=== PATIENT | male | born 1965 | race Caucasian/White ===

== ENCOUNTER → 2016-10-27 | Outpatient (CLI) | payer BC ==
--- NOTE | 2016-10-27 14:17 | CT ---
EXAMINATION TYPE: CT abdomen wo/w con DATE OF EXAM: 10/27/2016 2:04 PM COMPARISON: NONE HISTORY: 51-year-old male RUQ pain for 3 days. TECHNIQUE: Contiguous axial scanning of the abdomen following administration of 100 ml Omnipaque 300 IV contrast. Delayed images through the kidneys and coronal/sagittal reconstructions performed. CT DLP: 2180 mGycm Automated exposure control for dose reduction was used. FINDINGS: The heart is normal size without pericardial effusion. Strandy atelectasis at the posterior lung base s without pleural effusion. Diminished attenuation of the hepatic parenchyma suggesting fatty infiltration. No focal liver lesion or biliary ductal dilatation. Portal venous system is patent. Gallbladder, adrenal glands, kidneys, spleen, and pancreas appear within normal limits. No dilated small bowel, free fluid, or free air. Scattered nonenlarged mesenteric lymph nodes, some o f which are borderline enlarged measuring up to 6 mm. Likely reactive/post inflammatory. No retroperi toneal lymphadenopathy. Small fatty umbilical hernia. Normal appendix. Mild overall stool burden without pericolonic inflammatory change seen within the upper abdomen. The pelvis is not imaged. Bones: No osseous destructive process. IMPRESSION: 1. ATTENUATION CHARACTERISTICS SUGGEST FATTY INFILTRATION OF THE LIVER. CORRELATE WITH LFT's, LIPID P ROFILE, AND PATIENT RISK FACTORS. 2. SMALL FATTY UMBILICAL HERNIA.
== END | disposition home or self-care (01) ==
LOC: RADCTMAIN 13:08
PROVIDERS: ATTEND Family Medicine
DX: K42.9 Umbilical hernia without obstruction or gangrene (principal)
CPT/HCPCS: 74170; Q9967

== ENCOUNTER → 2017-10-31 | Outpatient (CLI) | payer BC | END | disposition home or self-care (01) | LOC: RADMRIMAIN 06:36 | PROVIDERS: ATTEND Orthopaedic Surgery | DX: Z53.9 Procedure and treatment not carried out, unspecified reason (principal) ==

== ENCOUNTER 2017-12-06 05:50 | Day surgery (SDC) | payer BC ==
[2017-11-30 12:45] VITALS: BMI 39.5
--- NOTE | 2017-12-05 13:56 | HP ---
HISTORY AND PHYSICAL DATE OF SERVICE: 12/06/2017 Fabricio Ortiz is a 52-year-old patient seen with progressive right shoulder pain. Treatment options were discussed. He elected to proceed with arthroscopy. Consent was obtained. PAST MEDICAL HISTORY: Hypertension. PAST SURGICAL HISTORY: Noncontributory. DAILY MEDICATIONS: Bystolic. ALLERGIES: None known, SOCIAL HISTORY: Patient denies tobacco use. PHYSICAL EVALUATION RIGHT SHOULDER: Flexion is 150 degrees, abduction is 130 degrees, external rotation is 25 degrees with pain and weakness. There is tenderness along the anterolateral acromion and rotator cuff insertion site as well as the acromioclavicular joint. Impingement sign is positive at 90 degrees. Drop-arm sign is positive. Distal neurovascular exam is intact. RADIOGRAPHS: Radiographs of the right shoulder revealed a type 2 anterior acromion, evidence for acromioclavicular joint osteoarthritis. An MRI of the right shoulder revealed a partial rotator cuff tear, severe acromioclavicular joint osteoarthritis, biceps tendinitis and a labral tear. IMPRESSION: Right shoulder impingement with rotator cuff tear, acromioclavicular joint osteoarthritis and labral tear. PLAN: Right shoulder arthroscopy with subacromial decompression, probable arthroscopic rotator cuff repair, probable Trey procedure, probable biceps tenotomy and debridement. MMODL / IJN: [id number] /
[~2017-12-06 05:50] MED LIST: ceFAZolin IN SWFI 2 GM/20 ML SYRINGE IVP ONE
[2017-12-06] MEDS ORDERED: MORPHINE SULFATE 4 MG/0.8 ML SYRINGE (INJ) IV PRN (05:58)
[2017-12-06] MEDS ORDERED: DEXAMETHASONE SOD PHOSPHATE 10 MG/ML 1 ML VIAL IV ONE (05:58)
[2017-12-06] MEDS ORDERED: MIDAZOLAM 2 MG/2 ML VIAL IV PRN (05:58)
[2017-12-06] MEDS ORDERED: LACTATED RINGERS 1,000 ML IV SCH (05:58)
[2017-12-06] MEDS ORDERED: ONDANSETRON ODT 4 MG TAB PO ONE (05:58)
[2017-12-06] MEDS ORDERED: LIDOCAINE 1% 20 ML VIAL (10MG/ML) FOR IV START INTRADERMA ONE (06:44)
[2017-12-06] MEDS ORDERED: ONDANSETRON 4 MG/2 ML VIAL IVP ONE (06:46)
[2017-12-06] MEDS ORDERED: fentaNYL (PF) 50 MCG/ML 2 ML AMP ONE ×2 (06:54→07:29)
[2017-12-06] MEDS ORDERED: fentaNYL (PF) 50 MCG/ML 2 ML AMP IV ONE (06:58)
[2017-12-06] MEDS ORDERED: ePHEDrine SULFATE/0.9% NACL/PF 50 MG/5 ML SYRINGE IV ONE (07:29)
[2017-12-06] MEDS ORDERED: ceFAZolin IN SWFI 2 GM/20 ML SYRINGE IVP ONE (07:29)
[2017-12-06] MEDS ORDERED: LIDOCAINE 1% INJ 10MG/ML (20 ML MDV) ONE (07:29)
[2017-12-06] MEDS ORDERED: PROPOFOL 10 MG/ML 20 ML VIAL IV ONE (07:29)
[2017-12-06] MEDS ORDERED: SUCCINYLCHOLINE CHLORIDE VIAL 200 MG/10 ML VIAL IV ONE (07:29)
[2017-12-06] MEDS ORDERED: MIDAZOLAM 2 MG/2 ML VIAL ONE (07:29)
[2017-12-06] MEDS ORDERED: LACTATED RINGERS 1,000 ML IV ONE (08:30)
--- NOTE | 2017-12-06 09:32 | P.OP ---
Date of Procedure: 12/06/17 Preoperative Diagnosis: Right shoulder impingement Postoperative Diagnosis: 1. Right shoulder rotator cuff tear 2. Right shoulder impingement 3. Right shoulder acromioclavicular joint osteoarthritis 4. Right shoulder partial long head biceps tendon tear 5. Right shoulder labral tear 6. Right shoulder glenoid chondromalacia Procedure(s) Performed: 1. Right shoulder arthroscopic rotator cuff repair 2. Right shoulder arthroscopic subacromial decompression 3. Right shoulder arthroscopic Trey procedure 4. Right shoulder arthroscopic biceps tenotomy 5. Right shoulder arthroscopic debridement labral tear 6. Right shoulder arthroscopic chondroplasty glenoid Implants: 1-4.5 peek anchor Anesthesia: GETA, regional (Interscalene block) Surgeon: Rob Toribio Secretary Office Clerk #1: Apolinar Hodgson Estimated Blood Loss (ml): 20 Pathology: none sent Condition: stable Disposition: PACU Indications for Procedure: 52-year-old patient seen with progressive right shoulder pain. After treatment options were discussed, patient elected to proceed with arthroscopy. Consent regarding the procedure was obtained. Operative Findings: see description of procedure Description of Procedure: Patient underwent a shoulder block by department of anesthesia. The patient was then taken to the operative suite. The patient underwent a general anesthetic by the department of anesthesia. The patient was placed into a lateral position and secured. There was appropriate padding of the bony prominence. Right shoulder was then prepped and draped in normal sterile orthopedic fashion. We placed the extremity in 10 pounds of longitudinal traction. A posterior incision was now made for a posterior working portal site. The trocar and cannula were inserted into the glenohumeral joint. Arthroscopy was initiated. Spinal needle was now inserted anteriorly, to ascertain the anterior working portal site. An incision was now made in that area, a trocar was inserted followed by a probe. There was superficial tearing of the superior labrum. There were grade 2/3 chondral moist changes of the anterior portion of glenoid with some small osteochondral tears. There was partial tearing hyperemia long head biceps tendon. The humeral head was unremarkable. I debrided the labral tears down to stable tissue. I performed an arthroscopic biceps tenotomy. I performed a chondroplasty of the glenoid down to stable tissue. The residual labrum was stable. The residual osteochondral surface of the glenoid was stable. Instruments were now removed from glenohumeral joint. Utilizing the posterior working portal site, the trocar and cannula were inserted into the subacromial space. Arthroscopy initiated. I made an incision 2 fingerbreadths lateral to the acromion. I introduced my trocar followed by my ArthroCare ablator. I now began ablating thick subacromial bursal tissue, which exposed the undersurface of the anterior acromion. This was diminished subacromial space. There was a very prominent anterior acromion. A motorized bur was introduced and a subacromial decompression was performed. I also excised some osteophytes off the inferior aspect of the distal clavicle. The AC joint was visualized and noted to be fairly arthritic. Our motorized bur was introduced in the anterior portal site and a Trey procedure was performed without difficulty, decompressing the AC joint nicely. I turned my attention to the rotator cuff. There was an area of superficial tearing along the distal space. Once I debrided that I did note a full-thickness perforation. I debrided those margins down to stable tissue. I abraded the footprint with a motorized bur. I passed 2 everted mattress sutures through good bites of rotator cuff tendon. I repaired the tendon right back to the footprint utilizing one 4.5 peek anchor. The residual suture limbs were clipped. The repair was probed and found to be stable. I injected 1 mL of UCT intra- articular. Instruments now removed from the portal sites. All portal sites were approximated with nylon suture. Sterile dressings were applied followed by a shoulder immobilizer. Wilmer MASTERS assisted with the procedure. The patient was awakened, transferred to a bed, and taken to recovery in stable condition.
[2017-12-06 09:33] VITALS: TEMP 96.4
--- NOTE | 2017-12-06 09:48 | P.ONQ ---
Anesthesiology Proc Note - PNB - Peripheral Nerve Block Performed Right Interscalene Single Time Out Performed: Yes Procedure Start Time: 06:58 Indication: Acute Post-Operative Pain, Analgesia Specifically requested for management of pain by DrDiane: Rob Toribio Sedation Type: Sedate with meaningful contact maintained Preparation: Sterile Prep Position: Supine Catheter: None Needle Types: Other (see comment) (Pajunk) Needle Size: 50mm (2") Needle Gauge: 21 Technique: Ultrasound Injectate: 0.5% Ropivacaine (see comment for volume) (30cc) Blood Aspirated: No Pain Paresthesia on Injection Noted: No Resistance on Injection: Normal Events: Uneventful and Well Tolerated
[2017-12-06 09:52] VITALS: RESP 18
[2017-12-06] MEDS ORDERED: KETOROLAC 30 MG/ML 1 ML VIAL IVP ONE (09:56)
[2017-12-06 11:32] VITALS: BP 134/83; PULSE 81
== END 2017-12-06 12:17 | disposition home or self-care (01) ==
LOC: OR 05:50
PROVIDERS: ATTEND Orthopaedic Surgery
DX: M75.121 Complete rotator cuff tear or rupture of right shoulder, not specified as traumatic (principal); S46.111A Strain of muscle, fascia and tendon of long head of biceps, right arm, initial encounter; S43.491A Other sprain of right shoulder joint, initial encounter; M19.011 Primary osteoarthritis, right shoulder; M94.211 Chondromalacia, right shoulder; Z79.899 Other long term (current) drug therapy; I10 Essential (primary) hypertension
CPT/HCPCS: 29827; 29824; 29826; 29822; 64415; C1713; C1765; J2250; J0330; J1100; J2405; J2001; J3010; J1885; J2704; J0690

== ENCOUNTER → 2019-08-01 | Outpatient (CLI) | payer BC ==
[2019-08-01 14:57] LABS: HGB 16.3 gm/dL (13.0-17.5); MCH 29.8 pg (25.0-35.0); MCHC 32.6 g/dL (31.0-37.0); MCV 91.5 fL (80.0-100.0); Mean Platelet Volume 7.3; Platelet Count 312 k/uL (150-450); RBC 5.47 m/uL (4.30-5.90); WBC 7.8 k/uL (3.8-10.6)
== END | disposition home or self-care (01) ==
LOC: LABPAT 13:37
PROVIDERS: ATTEND Anesthesiology
DX: Z01.812 Encounter for preprocedural laboratory examination (principal); Z01.818 Encounter for other preprocedural examination
CPT/HCPCS: 36415; 84132; 85027; 93005

== ENCOUNTER → 2019-08-02 | Day surgery (SDC) | payer BC ==
[2019-07-30 13:48] VITALS: BMI 38.0
[~2019-08-02] MED LIST changes: +ACETAMINOPHEN TAB 500 MG TAB PO STA; +BUPIVACAIN-EPI 0.25%-1:200,000 30 ML VIAL SQ ONE; +DEXAMETHASONE SOD PHOSPHATE 10 MG/ML 1 ML VIAL IV ONE; +DEXAMETHASONE SOD PHOSPHATE 4 MG/ML 1 ML VIAL ONE; +GABAPENTIN 300 MG CAP PO STA; +GLYCOPYRROLATE 0.2 MG/ML 2 ML VIAL ONE; +HEPARIN SODIUM,PORCINE 5,000 UNIT/ML 1 ML VIAL SQ ONE; +LACTATED RINGERS 1,000 ML IV ONE; +LIDOCAINE 1% INJ 10MG/ML (20 ML MDV) ONE; +MIDAZOLAM 2 MG/2 ML VIAL IV PRN; +NEOSTIGMINE 1 MG/ML 10 ML VIAL ONE; +ONDANSETRON 4 MG/2 ML VIAL IVP ONE; +PROPOFOL 10 MG/ML 20 ML VIAL IV ONE; +ROCURONIUM BROMIDE 10 MG/ML 10 ML VIAL IV ONE; +ROPIVACAINE 5 MG/ML 30 ML VIAL ONE; +SCOPOLAMINE 1.5MG/72HR PATCH TRANSDERM ONE; +SUCCINYLCHOLINE CHLORIDE 100 MG/5 ML SYR IV ONE; +TAMSULOSIN 0.4 MG CAP.ER.24H PO STA; +ceFAZolin 3 GM in SODIUM CHLORIDE 0.9% 100 ML IVPB ONE; -ceFAZolin IN SWFI 2 GM/20 ML SYRINGE IVP ONE; +ePHEDrine SULFATE/0.9% NACL/PF 50 MG/5 ML SYRINGE IV ONE; +fentaNYL (PF) 50 MCG/ML 2 ML AMP IVP ONE; +fentaNYL (PF) 50 MCG/ML 2 ML AMP ONE
[2019-08-02] MEDS: LACTATED RINGERS 1,000 ML IV SCH ×2 (06:22→07:35)
--- NOTE | 2019-08-02 06:52 | P.GSHP ---
History of Present Illness H&P Date: 08/02/19 CHIEF COMPLAINT: History of umbilical hernia. HISTORY OF PRESENT ILLNESS: Fabricio Ortiz is a 53-year-old male who reports that in the last over 6 months, he has had swelling and pain of the umbilicus. 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 He denies any changes in bowel habits or blood in stools. In fact, he had a recent surgery of barely a year ago, where his EKG has been unremarkable for right shoulder arthroscopy procedure. As a result of his abdominal pain, he presents for further assessment. PAST MEDICAL HISTORY: Please see list. PAST SURGICAL HISTORY: Please see list. MEDICATIONS: Please see list. ALLERGIES: Please see list. SOCIAL HISTORY: No illicit drug use FAMILY HISTORY: No reports of Crohn disease or ulcerative colitis. REVIEW OF ORGAN SYSTEMS: Additionally reports: Cardiovascular: No reports of chest pain or heart attacks. Respiratory: No reports of dyspnea on exertion. Musculoskeletal: History of right shoulder surgery. CONSTITUTIONAL: No fevers or chills. No recent weight loss. EYES: Denies any trouble with vision. He wears glasses. HEENT: No difficulties with hearing. No nosebleeds. No difficulty swallowing. GASTROINTESTINAL: Denies fatty food intolerance. Denies change in bowel habits and gas bloat. GENITOURINARY: Denies any blood in urine or increased urinary frequency. NEUROLOGICAL: Denies any numbness or tingling along the distal extremities. No seizure disorders or headaches. SKIN: No current skin cancer. No rash. PSYCHIATRIC: Denies current depression or suicidal thoughts. ENDOCRINE: Denies current thyroid disorders. Denies any blood sugar glucose intolerance. Has low testosterone. HEME/LYMPHATIC: Denies any lumps and bumps around the neck. No recent deep venous thrombosis. ALLERGY/IMMUNOLOGY: No immunoglobulin therapy. No immune deficiencies. BREAST: Denies current breast lumps, pain or nipple discharge. PHYSICAL EXAM: Patient is a 53-year-old male. CONSTITUTIONAL: Well developed and in no acute distress. Vitals reviewed. EYES: Conjuctivae without sclera icterus. Pupils are equally round and reactive to light. Extraocular movements grossly intact. HEAD, EARS, NOSE, THROAT: Moist buccal mucosa. Head is atraumatic, normocephalic. Hears conversational speech. No nasal drainage. NECK: Supple. No JV distention. No thyroidomegaly. RESPIRATORY: Non-labored respirations and equal bilateral excursions. No gross wheezes. CARDIOVASCULAR: Regular rate and rhythm. Extremities without moderate edema. Palpable 2+ radial pulses. LYMPH: No neck lymphadenopathy. No axillary lymphadenopathy. MUSCULOSKELETAL: Nail and fingers with good capillary refill. SKIN: Warm and well perfused with good skin turgor. NEUROLOGIC: Cranial nerves I through XII grossly intact. Sensation upper and extremities intact. No focal or lateralizing signs. PSYCH: Appropriate affect. Alert and oriented to person, place and time. Di splays appropriate insight. Abdomen: 3 cm incarcerated umbilical hernia. STUDIES: EKG from November of 2017 demonstrated normal sinus rhythm. ASSESSMENT: 1. History of initial incarcerated umbilical hernia. PLAN: 1. Benefits and risks of robotic ventral hernia repair were described, including mesh placement. 2. Time off for recovery, including lifting restrictions of 4 weeks were also reviewed. 3. The patient recently had a EKG that was personally reviewed by me, which was within normal limits. 4. The patient is at elevated risk with history of hypertensive heart disease. Past Medical History Past Medical History: Hypertension History of Any Multi-Drug Resistant Organisms: None Reported Past Surgical History: Orthopedic Surgery Additional Past Surgical History / Comment(s): rt shoulder surgery Past Anesthesia/Blood Transfusion Reactions: No Reported Reaction Smoking Status: Never smoker - Past Family History Father Family Medical History: Cancer Mother Family Medical History: Cancer Sister(s) Family Medical History: Cancer Medications and Allergies Home Medications Medication Instructions Recorded Confirmed Type EPINEPHrine (Auto Inject) [Epipen] 0.3 mg IM ONCE PRN 11/30/17 08/02/19 History Hydrochlorothiazide [Hydrodiuril] 25 mg PO QAM 11/30/17 08/02/19 History Losartan Potassium 100 mg PO QAM 11/30/17 08/02/19 History Nebivolol [Bystolic] 5 mg PO QAM 11/30/17 08/02/19 History Allergies Allergy/AdvReac Type Severity Reaction Status Date / Time bee venom protein (honey bee) Allergy Anaphylaxis Verified 08/02/19 06:13 Surgical - Exam Vital Signs Temp Pulse Resp BP Pulse Ox 96.5 F L 84 18 130/60 97 08/02/19 06:19 08/02/19 06:19 08/02/19 06:19 08/02/19 06:19 08/02/19 06:19
--- NOTE | 2019-08-02 07:57 | P.ANPRN ---
Procedure Note - Anesthesia - Nerve Block Performed Bilateral Rectus Abdominis Single Time Out Performed: Yes Date of Procedure: 08/02/19 Procedure Start Time: :18 Procedure Stop Time: : Location of Patient: PreOp Indication: Acute Post-Operative Pain, Dx/Pain Location, Requested by Surgeon Sedation Type: Sedate with meaningful contact maintained Position: Supine Catheter: None Needle Types: Pajunk Needle Gauge: 21 Ultrasound used to visualize needle placement: Yes Ultrasound used to observe medication spread: Yes Injectate: 0.5% Ropivacaine (see comment for volume) (15ml each side) Blood Aspirated: No Pain Paresthesia on Injection Noted: No Resistance on Injection: Normal Image Stored and Saved: Yes Events: Uneventful and Well Tolerated
--- NOTE | 2019-08-02 09:08 | P.OP ---
Date of Procedure: 08/02/19 Description of Procedure: SURGEON: KAELA HAMILTON MD 1. RAULITO GOODMAN PREOPERATIVE DIAGNOSES: 1. Initial umbilical hernia with incarceration 2. Morbid obesity due to excess calories, BMI 41.6 3. Hypertensive heart disease. POSTOPERATIVE DIAGNOSES: 1. Initial umbilical hernia with incarceration 2. Morbid obesity due to excess calories, BMI 41.6 3. Hypertensive heart disease. OPERATION: Robotic-assisted da Willa Xi laparoscopic repair of initial incarcerated umbilical hernia 3 cm with mesh, ventralight ST mesh 11.4 cm Anesthesia: GETA, regional, local Estimated Blood Loss (ml): 10 Pathology: Incarcerated umbilical hernia COMPLICATIONS: None. Operative Findings: 1. Umbilical hernia defect, 3cm 2. Fascia repaired using #1 V-lock suture 3. Mesh placement placed INDICATIONS: The patient is a 53-year-old male who presents with incarcerated ventral hernia. Surgical intervention with laparoscopic versus robotic and open techniques were reviewed. Placement of mesh was also reviewed. Benefits and risks were thoroughly described. Informed consent was obtained. DESCRIPTION OF PROCEDURE: The patient was brought into the operating room and laid in supine position. After general induction, the abdomen had been prepped and draped in standard sterile fashion. Ioban draping was also placed. Prior to incision, a timeout protocol was confirmed with surgical team regarding the patient's name including procedures to be performed. The robot was primed prior to the procedure. A field block using local anesthetic was placed along hernia site including the proposed port sites. Initial incision was made with an #11 blade along the left upper quadrant. A 0 degree 5 mm laparoscopic trocar entry was performed and insufflated. Three 8 mm ports were placed along the right lateral abdominal wall under direct localization. The 5-mm port was exchanged for an 12 mm port. Placements of the ports were 15 cm from the target anatomy and 10 cm apart. The [employer] Xi robot was previously primed, prepped and draped then docked along the right side of the patient. I then sat at the robot [email or web address] Xi console where working arms of the robot including Bovie cautery connected to robotic scissors, needle stunt driver, and graspers placed by the sales operations assistant. Incarcerated umbilical hernia defect 3-cm was found with pre-peritoneal fat. The incarcerated contents were reduced as the peritoneal fat was cleaned from the abdominal wall. Next, hemostasis was checked with cautery. The hernia defect was oversewn using #1 nonabsorbable V-lock suture with fascial imbrication x 3. Next, ventralight ST mesh 11.4 cm was placed with the rough side towards the abdominal wall as to cover the umbilical defect. 2-0 VLOC 9 inch permanent sutures were used to fixate the mesh. A final endoscopic imaging was obtained. All instruments and pneumoperitoneum were evacuated from the abdominal cavity. The da Willa Xi robot was undocked from the patient. I re-scrubbed into the case for closure of incisions. The fascia of the 12-mm port was probed and less than 8-mm in size. The incisions were reapproximated using 4-0 Monocryl in an interrupted subcuticular fashion. Liquid glue was applied to the skin after cleansing the skin with normal saline and dilute hydrogen peroxide. An abdominal binder was placed. An umbilical dressing was placed prior. At the end of the procedure, needle, sponge, and instrument count had been verified correct by surgical physician assistant. The patient was taken to the postanesthesia care unit in stable condition. Plan - Discharge Summary New Discharge Prescriptions: New Tamsulosin [Flomax] 0.4 mg PO DAILY #3 cap.er.24h Ibuprofen [Motrin] 600 mg PO Q8HR PRN #30 tab PRN Reason: Pain Acetaminophen Tab [Tylenol Tab] 500 mg PO Q6H PRN #30 tablet PRN Reason: Pain No Action Hydrochlorothiazide [Hydrodiuril] 25 mg PO QAM EPINEPHrine (Auto Inject) [Epipen] 0.3 mg IM ONCE PRN PRN Reason: Anaphylaxis Nebivolol [Bystolic] 5 mg PO QAM Losartan Potassium 100 mg PO QAM Discharge Medication List EPINEPHrine (Auto Inject) [Epipen] 0.3 mg IM ONCE PRN 11/30/17 [History] Hydrochlorothiazide [Hydrodiuril] 25 mg PO QAM 11/30/17 [History] Losartan Potassium 100 mg PO QAM 11/30/17 [History] Nebivolol [Bystolic] 5 mg PO QAM 11/30/17 [History] Acetaminophen Tab [Tylenol Tab] 500 mg PO Q6H PRN #30 tablet 08/02/19 [Rx] Ibuprofen [Motrin] 600 mg PO Q8HR PRN #30 tab 08/02/19 [Rx] Tamsulosin [Flomax] 0.4 mg PO DAILY #3 cap.er.24h 08/02/19 [Rx] Follow up Appointment(s)/Referral(s): Kaela Hamilton MD [STAFF PHYSICIAN] - 08/15/19 Patient Instructions/Handouts: Laparoscopic Herniorrhaphy (DC), Umbilical Hernia Repair (DC), Abdominal Binder (DC) Activity/Diet/Wound Care/Special Instructions: No lifting for 4 pounds in 4 weeks, until September 02. No bathtub soaks for 2 weeks until August 16. Wear abdominal binder daily for comfort except for showering. DO NOT REMOVE DRESSING. Diet as tolerated. Use Tylenol and ibuprofen scheduled for the next 24-48 hours for best pain relief. Use ice along incisions for the today to prevent swelling. Discharge Disposition: HOME SELF-CARE
[2019-08-02 09:24] VITALS: TEMP 96.9
[2019-08-02] MEDS: HYDROmorphone 0.5 MG/0.5 ML SYRINGE IVP PRN ×2 (09:30→09:35)
[2019-08-02 10:12] VITALS: BP 148/81; PULSE 63; RESP 17
== END | disposition home or self-care (01) ==
LOC: OR 05:57
PROVIDERS: ATTEND Surgery Plastic and Reconstructive Surgery
DX: K42.0 Umbilical hernia with obstruction, without gangrene (principal); E66.01 Morbid (severe) obesity due to excess calories; Z68.41 Body mass index [BMI] 40.0-44.9, adult; I11.9 Hypertensive heart disease without heart failure; Z80.9 Family history of malignant neoplasm, unspecified; Z91.030 Bee allergy status; E78.5 Hyperlipidemia, unspecified; G47.33 Obstructive sleep apnea (adult) (pediatric); Z99.89 Dependence on other enabling machines and devices; Z79.899 Other long term (current) drug therapy
CPT/HCPCS: 49653; S2900; 64488; 88302

== ENCOUNTER → 2020-03-03 | Outpatient (CLI) | payer BC ==
[2020-03-03 11:39] LABS: HCT 43.5 % (39.0-53.0); HGB 14.7 gm/dL (13.0-17.5); MCH 30.6 pg (25.0-35.0); MCHC 33.9 g/dL (31.0-37.0); MCV 90.3 fL (80.0-100.0); Mean Platelet Volume 7.4; Platelet Count 257 k/uL (150-450); RBC 4.82 m/uL (4.30-5.90); RDW 13.7 % (11.5-15.5); WBC 6.7 k/uL (3.8-10.6)
[2020-03-03 16:32] LABS: % Iron Saturation 31.72 (15.00-50.00); African American GFR (CKD) 97.1 (60.0-200.0); Albumin 4.3 g/dL (3.80-4.90); Albumin/Globulin Ratio 1.95 (1.60-3.17); Anion Gap 6.4 mmol/L (4.00-12.00); Calcium 9.3 mg/dL (8.7-10.3); Carbon Dioxide 30.6 mmol/L (21.6-31.8); Chol/HDL Ratio 4.97; Globulin 2.2 g/dL (1.6-3.3); LDL Cholesterol,Calculated 105.8 mg/dL (0.0-131.0); Non-African American GFR(CKD) 83.8 (60.0-200.0); Potassium 4.3 mmol/L (3.5-5.5); Total Bilirubin 0.5 mg/dL (0.3-1.2); Total Protein 6.5 g/dL (6.2-8.2); VLDL Calculation 37.2 mg/dL (5.00-40.00)
[2020-03-03 16:33] LABS: INR 0.97 (0.90-1.11); Partial Thromboplastin Time 28.3 sec (24.7-29.9); Prothrombin Time 10.4 sec (9.9-11.9)
[2020-03-03 16:55] LABS: Folate, Serum 12.5 ng/mL
[2020-03-03 18:58] LABS: Hemoglobin A1C 5.9 % (4.0-6.0)
[2020-03-04 12:27] LABS: Zinc, Serum 80 ug/dL (60-130)
[2020-03-05 07:42] LABS: Vitamin A 57 ug/dL (38-106)
[2020-03-05 08:26] LABS: Vit B1(Thiamine) 68 ug/L (38-122)
== END | disposition home or self-care (01) ==
LOC: LABWHC1 10:18
PROVIDERS: ATTEND Surgery Plastic and Reconstructive Surgery
DX: E21.1 Secondary hyperparathyroidism, not elsewhere classified (principal); D50.8 Other iron deficiency anemias; K90.89 Other intestinal malabsorption; E55.9 Vitamin D deficiency, unspecified; K74.1 Hepatic sclerosis; N19 Unspecified kidney failure; K50.90 Crohn's disease, unspecified, without complications
CPT/HCPCS: 36415; 80053; 80061; 82306; 82525; 82607; 82728; 82746; 83036; 83540; 83550; 83735; 83970; 84100; 84134; 84255; 84425; 84443; 84590; 84630; 85027; 85610; 85730

== ENCOUNTER 2020-03-18 08:49 | Day surgery (SDC) | payer BC ==
[2020-03-16 14:07] VITALS: BMI 40.3
--- NOTE | 2020-03-18 08:03 | P.GSHP ---
History of Present Illness H&P Date: 03/18/20 CHIEF COMPLAINT: GERD HISTORY OF PRESENT ILLNESS: The patient is a 54-year-old male who presents reports gastroesophageal reflux disease. Upper endoscopy was offered for further evaluation and management. PAST MEDICAL HISTORY: Please see list. PAST SURGICAL HISTORY: Please see list. MEDICATIONS: Please see list. ALLERGIES: Please see list. SOCIAL HISTORY: No illicit drug use FAMILY HISTORY: No reports of Crohn disease or ulcerative colitis. REVIEW OF ORGAN SYSTEMS: CONSTITUTIONAL: No reports of fevers or chills. GI: Denies any blood in stools or constipation. PHYSICAL EXAM: VITAL SIGNS: Stable GENERAL: Well-developed and pleasant in no acute distress. HEENT: No scleral icterus. Extraocular movements grossly intact. Moist buccal mucosa. NECK: Supple without lymphadenopathy. CHEST: Unlabored respirations. Equal bilateral excursions. CARDIOVASCULAR: Regular rate and rhythm. Distal 2+ pulses. ABDOMEN: Soft, nondistended. MUSCULOSKELETAL: No clubbing, cyanosis, or edema. ASSESSMENT: 1. Gastroesophageal reflux disease PLAN: 1. 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 History of Any Multi-Drug Resistant Organisms: None Reported Past Surgical History: Orthopedic Surgery Additional Past Surgical History / Comment(s): rt shoulder surgery, BILATERAL EYE SURGERY Past Anesthesia/Blood Transfusion Reactions: No Reported Reaction Smoking Status: Never smoker - Past Family History Father Family Medical History: Cancer Mother Family Medical History: Cancer Sister(s) Family Medical History: Cancer Medications and Allergies Home Medications Medication Instructions Recorded Confirmed Type EPINEPHrine (Auto Inject) [Epipen] 0.3 mg IM ONCE PRN 11/30/17 03/16/20 History Losartan Potassium 100 mg PO QAM 11/30/17 03/16/20 History Nebivolol [Bystolic] 5 mg PO QAM 11/30/17 03/16/20 History hydroCHLOROthiazide [Hydrodiuril] 25 mg PO QAM 11/30/17 03/16/20 History Allergies Allergy/AdvReac Type Severity Reaction Status Date / Time bee venom protein (honey bee) Allergy Anaphylaxis Verified 08/02/19 06:13
[~2020-03-18 08:49] MED LIST changes: -ACETAMINOPHEN TAB 500 MG TAB PO STA; -BUPIVACAIN-EPI 0.25%-1:200,000 30 ML VIAL SQ ONE; -DEXAMETHASONE SOD PHOSPHATE 10 MG/ML 1 ML VIAL IV ONE; -DEXAMETHASONE SOD PHOSPHATE 4 MG/ML 1 ML VIAL ONE; -GABAPENTIN 300 MG CAP PO STA; -GLYCOPYRROLATE 0.2 MG/ML 2 ML VIAL ONE; -HEPARIN SODIUM,PORCINE 5,000 UNIT/ML 1 ML VIAL SQ ONE; -LACTATED RINGERS 1,000 ML IV ONE; +LACTATED RINGERS 1,000 ML IV SCH; -LIDOCAINE 1% INJ 10MG/ML (20 ML MDV) ONE; -MIDAZOLAM 2 MG/2 ML VIAL IV PRN; -NEOSTIGMINE 1 MG/ML 10 ML VIAL ONE; -ONDANSETRON 4 MG/2 ML VIAL IVP ONE; -PROPOFOL 10 MG/ML 20 ML VIAL IV ONE; -ROCURONIUM BROMIDE 10 MG/ML 10 ML VIAL IV ONE; -ROPIVACAINE 5 MG/ML 30 ML VIAL ONE; -SCOPOLAMINE 1.5MG/72HR PATCH TRANSDERM ONE; -SUCCINYLCHOLINE CHLORIDE 100 MG/5 ML SYR IV ONE; -TAMSULOSIN 0.4 MG CAP.ER.24H PO STA; -ceFAZolin 3 GM in SODIUM CHLORIDE 0.9% 100 ML IVPB ONE; -ePHEDrine SULFATE/0.9% NACL/PF 50 MG/5 ML SYRINGE IV ONE; -fentaNYL (PF) 50 MCG/ML 2 ML AMP IVP ONE; -fentaNYL (PF) 50 MCG/ML 2 ML AMP ONE
[2020-03-18 09:12] VITALS: TEMP 98
[2020-03-18] MEDS ORDERED: MIDAZOLAM 2 MG/2 ML VIAL ONE (09:55)
[2020-03-18] MEDS ORDERED: fentaNYL (PF) 50 MCG/ML 2 ML AMP ONE (09:55)
[2020-03-18] MEDS ORDERED: LIDOCAINE 1% INJ 10MG/ML (20 ML MDV) ONE (09:55)
[2020-03-18] MEDS ORDERED: PROPOFOL 10 MG/ML 20 ML VIAL IV ONE (09:55)
[2020-03-18 10:16] VITALS: RESP 16
--- NOTE | 2020-03-18 10:23 | P.PCN ---
Date of Procedure: 03/18/20 Description of Procedure: PREOPERATIVE DIAGNOSIS: Gastroesophageal reflux disease. Morbid obesity. POSTOPERATIVE DIAGNOSIS: Morbid obesity. Gastritis. Gastroesophageal reflux disease. OPERATION: Esophagogastroduodenoscopy with biopsies along antrum. SURGEON: Kaela Hamilton MD ANESTHESIA: MAC. INDICATIONS: The patient is a 54-year-old male who presents with a history of reflux disease. Benefits and risks of the procedure were described. Informed consent was obtained. DESCRIPTION: The patient was brought into the endoscopy suite and laid in the left lateral decubitus position. An Olympus gastroscope was passed along the posterior oropharynx down to the distal esophagus where the squamocolumnar junction was encountered at 45 cm from the incisors. The stomach was entered and no bile reflux was found. Additional findings are listed below. Biopsies with cold forceps were obtained of the antrum. The first through third portion of the duodenum was examined and unremarkable. Retroflexion of the scope confirmed Hill grade 2 lower esophageal valve. The squamocolumnar junction demonstrated LA grade A erosive esophagitis. The stomach was desufflated. The patient tolerated the procedure well. FINDINGS: Squamocolumnar junction 45 cm from the incisors. Diaphragmatic hiatus at 45 cm. Hill grade 1 lower esophageal valve. LA grade A erosive esophagitis. No active duodenitis. Chronic gastritis with recent bleed RECOMMENDATIONS: Recommend omeprazole 40 mg daily Plan - Discharge Summary Discharge Rx Participant: No New Discharge Prescriptions: New Omeprazole [PriLOSEC] 40 mg PO DAILY #14 cap Continue hydroCHLOROthiazide [Hydrodiuril] 25 mg PO QAM EPINEPHrine (Auto Inject) [Epipen] 0.3 mg IM ONCE PRN PRN Reason: Anaphylaxis Nebivolol [Bystolic] 5 mg PO QAM Losartan Potassium 100 mg PO QAM Discharge Medication List EPINEPHrine (Auto Inject) [Epipen] 0.3 mg IM ONCE PRN 11/30/17 [History] Losartan Potassium 100 mg PO QAM 11/30/17 [History] Nebivolol [Bystolic] 5 mg PO QAM 11/30/17 [History] hydroCHLOROthiazide [Hydrodiuril] 25 mg PO QAM 11/30/17 [History] Omeprazole [PriLOSEC] 40 mg PO DAILY #14 cap 03/18/20 [Rx] Follow up [facility]ment(s[facility]Ref[facility] [place] - [facility]01[facility]20 Patient Instructions/Handouts: *Surgery [facility] - (Anesthesia) Endoscopy Discharge Instructions, Gastritis (DC) Discharge Disposition: HOME SELF-CARE
[2020-03-18 10:46] VITALS: BP 131/71; PULSE 59
== END 2020-03-18 10:54 | disposition home or self-care (01) ==
LOC: ORWHC2ENDO 08:49
PROVIDERS: ATTEND Surgery Plastic and Reconstructive Surgery
DX: K22.10 Ulcer of esophagus without bleeding (principal); K29.51 Unspecified chronic gastritis with bleeding; K21.9 Gastro-esophageal reflux disease without esophagitis; E66.01 Morbid (severe) obesity due to excess calories; Z68.41 Body mass index [BMI] 40.0-44.9, adult; I10 Essential (primary) hypertension; M19.90 Unspecified osteoarthritis, unspecified site; G47.33 Obstructive sleep apnea (adult) (pediatric); Z99.89 Dependence on other enabling machines and devices; Z98.890 Other specified postprocedural states; Z80.9 Family history of malignant neoplasm, unspecified; Z79.899 Other long term (current) drug therapy; Z91.030 Bee allergy status
CPT/HCPCS: 88305; 43239; J2250; J2001; J3010; J2704

== ENCOUNTER → 2020-04-01 | Outpatient (CLI) | payer BC ==
--- NOTE | 2020-04-01 16:38 | P.HPBAR ---
Bariatric H&P - History & Physicial H&P Date: 04/01/20 History & Physicial: Visit/CC: Patient initial contact: Initial weight: Initial weight in pounds: Height: Initial BMI: Last weight: Current weight: Current weight in pounds: Current BMI: Norris body weight (based on NIH guidelines): Excess body weight loss: The patient is a 54 year-old M who presents for Bariatric Assessment. DATE OF SERVICE: 04/01/2020 REASON FOR CONSULTATION: Initial bariatric evaluation. HISTORY OF PRESENT ILLNESS: Fabricio Ortiz is a 54-year-old male who comes with lifelong morbid obesity. He comes in looking into the sleeve gastrectomy. He has been undergoing medical supervised weight loss with his primary care provider for over 2 years. He reports troubles with testosterone. He was on Adipex for 6 months without effect. He has been able to lose weight down to 240 pounds however with moderate weight regain. His highest weight is 266 pounds. He comes in with obstructive sleep apnea, hypertensive heart disease including osteoarthritis bilateral knees. At height of 5 feet 7.5 inches, ideal body weight is 158 pounds. His highest weight was 266 pounds, BMI 41.0. He is 107 pounds overweight. PAST MEDICAL HISTORY: 1. Morbid obesity due to excess calories 2. Body mass index of 41.0 3. Osteoarthritis of the knees. 4. Obstructive sleep apnea 5. Hypertensive heart disease PAST SURGICAL HISTORY: 1. Ventral hernia repair 2. Right shoulder surgery 3. Bilateral eye surgeries HOME MEDICATIONS: Home Medications Medication Instructions Recorded Confirmed EPINEPHrine (Auto Inject) [Epipen] 0.3 mg IM ONCE PRN 11/30/17 06/08/20 Losartan Potassium 100 mg PO QAM 11/30/17 06/08/20 Nebivolol [Bystolic] 5 mg PO QAM 11/30/17 06/08/20 hydroCHLOROthiazide [Hydrodiuril] 25 mg PO QAM 11/30/17 06/08/20 Previous Rx's Medication Instructions Recorded Omeprazole [PriLOSEC] 40 mg PO DAILY #14 cap 03/18/20 ALLERGIES: Allergies Allergy/AdvReac Type Severity Reaction Status Date / Time bee venom protein (honey bee) Allergy Anaphylaxis Verified 06/08/20 15:18 SOCIAL HISTORY: No past tobacco use. FAMILY HISTORY: No family history of ulcerative colitis disease or Crohn's disease. Family history of morbid obesity. No lupus in the family. No reports of stomach or esophageal cancer. REVIEW OF ORGAN SYSTEMS: CONSTITUTIONAL: At height of 5 feet 7.5 inches, ideal body weight is 158 pounds. His highest weight was 266 pounds, BMI 41.0. He is 107 pounds overweight. HEENT: Denies any active troubles with vision or hearing. ENDOCRINE: No diabetes. No hypothyroidism. CARDIOVASCULAR: No past reports of palpitations or heart attacks or chest pain. His hypertension. RESPIRATORY: Has daytime somnolence. He has obstructive sleep apnea. GASTROINTESTINAL: Denies any bright red blood per rectum. No diarrhea. No constipation. MUSCULOSKELETAL: Has lower back pain and joint pain. Has osteoarthritis of the knees. NEURO: No headaches. No seizure disorders. PSYCH: No depression. No suicidal ideation. RHEUMATOLOGIC: No lupus. No rheumatoid arthritis. HEMATOLOGIC: Denies any abnormal bleeding or bruising. No personal history of DVTs. SKIN: No rash. No skin cancer. PHYSICAL EXAM: VITAL SIGNS: Height 5 foot 7.5 inches, weight 265 pounds. BMI 41.0 Vital Signs Temp 98.2 F 04/01/20 16:30 Pulse 69 04/01/20 16:30 Resp 16 04/01/20 16:30 BP 145/83 04/01/20 16:30 Pulse Ox GENERAL: Well-developed in no acute distress. HEENT: No scleral icterus. Extraocular movements grossly intact. Hears conversational speech. No nasal drainage. NECK: Supple without lymphadenopathy. CHEST: Nonlabored respirations with equal bilateral excursions. CARDIOVASCULAR: Regular rate and regular rhythm. Distal 2+ pulses. ABDOMEN: Obese, soft, nontender, nondistended. MUSCULOSKELETAL: No clubbing, cyanosis. NEURO: No focal or lateralizing signs. Cranial nerves 2 through 12 grossly within normal limits. PSYCH: Appropriate affect. Alert and oriented to person, place and time. SKIN: Good skin turgor. Well perfused. EGD FINDINGS: Squamocolumnar junction 45 cm from the incisors. Diaphragmatic hiatus at 45 cm. Hill grade 1 lower esophageal valve. LA grade A erosive esophagitis. No active duodenitis. Chronic gastritis with recent bleed Final Pathologic Diagnosis GASTRIC ANTRUM, BIOPSY: Mild chronic gastritis. ASSESSMENT: 1. Morbid obesity due to excess calories 2. Body mass index of 41.0 3. Osteoarthritis of the knees. 4. Obstructive sleep apnea 5. Hypertensive heart disease PLAN: 1. Surgical options including a band, gastric bypass, sleeve gastrectomy were described in detail. Alternatives such as gastric balloon including duodenal switch were described. He is looking into the sleeve gastrectomy. 2. The [place] bariat[facility] surgical collaborative data and outcomes calculator were described with surgical options. 3. Recommend a bariatric metabolic panel to evaluate for micro- including macronutrient deficiencies. 4. Dietary surveillance and counseling was reviewed. Increased protein intake over 65 grams daily advised. 5. Psych assessment per insurance guidelines. Thank you for this consultation. 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 Hiatal hernia: 2. H. Pylori: HgbA1c: Vitamin D: Smoking: Never smoker Primary care physician referral: Psychiatry clearance: Cardiology clearance: Sleep study: Diet journal: VTE risk score: VTE risk level: Rehab needs at discharge:
[2020-04-02 13:10] VITALS: BP 145/83; PULSE 69; RESP 16; TEMP 98.2; BMI 41.0
== END | disposition home or self-care (01) ==
LOC: BARWHC3 15:06
PROVIDERS: ATTEND Surgery Plastic and Reconstructive Surgery
DX: E66.01 Morbid (severe) obesity due to excess calories (principal); G47.33 Obstructive sleep apnea (adult) (pediatric); M17.0 Bilateral primary osteoarthritis of knee; I11.9 Hypertensive heart disease without heart failure; I50.9 Heart failure, unspecified; Z68.41 Body mass index [BMI] 40.0-44.9, adult; Z91.030 Bee allergy status
CPT/HCPCS: 99211

== ENCOUNTER → 2020-06-08 | Outpatient (CLI) | payer BC ==
[2020-06-08 13:17] VITALS: BMI 42.7
== END | disposition home or self-care (01) ==
LOC: BARWHC3 08:52
PROVIDERS: ATTEND Surgery Plastic and Reconstructive Surgery
DX: E66.01 Morbid (severe) obesity due to excess calories (principal); Z71.3 Dietary counseling and surveillance
CPT/HCPCS: 97804

== ENCOUNTER → 2020-07-15 | Outpatient (CLI) | payer BC ==
[2020-07-15 15:03] VITALS: BP 162/97; PULSE 71; RESP 18; TEMP 98.5
--- NOTE | 2020-07-15 15:25 | P.PN ---
Subjective Progress Note Date: 07/15/20 DATE OF SERVICE: 07/15/2020 CHIEF COMPLAINT: Morbid obesity HISTORY OF PRESENT ILLNESS: Fabricio Ortiz is a 54-year-old male who comes with lifelong morbid obesity. He comes in looking into the sleeve gastrectomy. He has completed medical supervised weight loss. As a result of his morbid obesity, he has developed osteoarthritis of the knees, sleep apnea, and hypertensive heart disease. He comes in with [place] with overeating. He comes in with weight gain. At height of 5 feet 7.5 inches, ideal body weight is 158 pounds. He comes in 272 pounds from 266 pounds, 4 months ago. He has gained 7 pounds in 4 months. He presents at this highest weight. His BMI 42.1. He is 114 pounds overweight. PAST MEDICAL HISTORY: 1. Morbid obesity due to excess calories 2. Body mass index of 41.0 3. Osteoarthritis of the knees. 4. Obstructive sleep apnea 5. Hypertensive heart disease PAST SURGICAL HISTORY: 1. Ventral hernia repair 2. Right shoulder surgery 3. Bilateral eye surgeries HOME MEDICATIONS: Home Medications Medication Instructions Recorded Confirmed EPINEPHrine (Auto Inject) [Epipen] 0.3 mg IM ONCE PRN 11/30/17 06/08/20 Losartan Potassium 100 mg PO QAM 11/30/17 06/08/20 Nebivolol [Bystolic] 5 mg PO QAM 11/30/17 06/08/20 hydroCHLOROthiazide [Hydrodiuril] 25 mg PO QAM 11/30/17 06/08/20 Previous Rx's Medication Instructions Recorded Omeprazole [PriLOSEC] 40 mg PO DAILY #14 cap 03/18/20 ALLERGIES: Allergies Allergy/AdvReac Type Severity Reaction Status Date / Time bee venom protein (honey bee) Allergy Anaphylaxis Verified 06/08/20 15:18 SOCIAL HISTORY: No past tobacco use. FAMILY HISTORY: No family history of ulcerative colitis disease or Crohn's disease. Family history of morbid obesity. No lupus in the family. No reports of stomach or esophageal cancer. REVIEW OF ORGAN SYSTEMS: CONSTITUTIONAL: At height of 5 feet 7.5 inches, ideal body weight is 158 pounds. His highest weight 272 pounds, BMI 42.1. He is 114 pounds overweight. HEENT: Denies any active troubles with vision or hearing. ENDOCRINE: No diabetes. No hypothyroidism. CARDIOVASCULAR: No past reports of palpitations or heart attacks or chest pain. His hypertension. RESPIRATORY: Has daytime somnolence. He has obstructive sleep apnea. GASTROINTESTINAL: Denies any bright red blood per rectum. No diarrhea. No constipation. MUSCULOSKELETAL: Has lower back pain and joint pain. Has osteoarthritis of the knees. NEURO: No headaches. No seizure disorders. PSYCH: No depression. No suicidal ideation. RHEUMATOLOGIC: No lupus. No rheumatoid arthritis. HEMATOLOGIC: Denies any abnormal bleeding or bruising. No personal history of DVTs. SKIN: No rash. No skin cancer. PHYSICAL EXAM: VITAL SIGNS: Height 5 foot 7.5 inches, weight 272 pounds. BMI 42.1 Vital Signs Temp 98.5 F 07/15/20 14:59 Pulse 71 07/15/20 14:59 Resp 18 07/15/20 14:59 BP 162/97 07/15/20 14:59 Pulse Ox GENERAL: Well-developed in no acute distress. HEENT: No scleral icterus. Extraocular movements grossly intact. Hears conversational speech. No nasal drainage. NECK: Supple without lymphadenopathy. CHEST: Nonlabored respirations with equal bilateral excursions. CARDIOVASCULAR: Regular rate and regular rhythm. Distal 2+ pulses. ABDOMEN: Obese, soft, nontender, nondistended. MUSCULOSKELETAL: No clubbing, cyanosis. NEURO: No focal or lateralizing signs. Cranial nerves 2 through 12 grossly within normal limits. PSYCH: Appropriate affect. Alert and oriented to person, place and time. SKIN: Good skin turgor. Well perfused. ASSESSMENT: 1. Morbid obesity due to excess calories 2. Body mass index of 41.0 3. Osteoarthritis of the knees. 4. Obstructive sleep apnea 5. Hypertensive heart disease PLAN: 1. Bariatric options between a sleeve, band and a Nacho-en-Y gastric bypass were reviewed in detail. The patient elected for a sleeve gastrectomy. Robotic assisted approach described. 2. The [place] [facility] Data was also reviewed with benefits and risks as described. 3. An 8 page second-generation bariatric consent form was reviewed in detail including potential of bleeding, infection, leaks, adequate weight loss, nutritional deficiencies which the patient demonstrated understanding of the risks. 4. A 2 week high-protein low caloric 800 kcal diet described to address hepatomegaly. 5. Preoperative labs including complete metabolic panel and CBC with type and screen recommended. 6. DVT prophylaxis per [place] [facility] collaborative. 7. Antibiotic prophylaxis. 8. Inpatient hospitalization anticipated for more than 2 nights. 9. He is elevated risk with his co-morbidities. Objective - Vital Signs Vital signs: Vital Signs Temp 98.5 F 07/15/20 14:59 Pulse 71 07/15/20 14:59 Resp 18 07/15/20 14:59 BP 162/97 07/15/20 14:59 Pulse Ox Intake & Output 07/14/20 07/15/20 07/15/20 18:59 06:59 18:59 Weight 123.831 kg
== END | disposition home or self-care (01) ==
LOC: BARWHC3 14:03
PROVIDERS: ATTEND Surgery Plastic and Reconstructive Surgery
DX: E66.01 Morbid (severe) obesity due to excess calories (principal); G47.33 Obstructive sleep apnea (adult) (pediatric); M17.0 Bilateral primary osteoarthritis of knee; I11.9 Hypertensive heart disease without heart failure; Z68.41 Body mass index [BMI] 40.0-44.9, adult; Z91.030 Bee allergy status; Z79.891 Long term (current) use of opiate analgesic; Z79.899 Other long term (current) drug therapy
CPT/HCPCS: 99211

== ENCOUNTER → 2020-07-27 | Outpatient (CLI) | payer BC ==
[2020-07-27 13:48] LABS: Basophils # (A) 0.1 k/uL (0-0.2); Basophils % (A) 1 %; Eosinophils # (A) 0.1 k/uL (0-0.7); Eosinophils % (A) 2 %; HCT 46.1 % (39.0-53.0); HGB 15.4 gm/dL (13.0-17.5); Lymphocytes % (A) 25 %; MCH 29.9 pg (25.0-35.0); MCHC 33.4 g/dL (31.0-37.0); MCV 89.3 fL (80.0-100.0); Mean Platelet Volume 6.8; Monocytes # (A) 0.5 k/uL (0-1.0); Monocytes % (A) 6 %; Neutrophils # (A) 5.3 k/uL (1.3-7.7); Neutrophils % (A) 64 %; Platelet Count 250 k/uL (150-450); RBC 5.16 m/uL (4.30-5.90); RDW 13.8 % (11.5-15.5); WBC 8.2 k/uL (3.8-10.6)
[2020-07-27 14:03] LABS: Albumin 4.3 g/dL (3.5-5.0); Calcium 9.5 mg/dL (8.4-10.2); Potassium 4.5 mmol/L (3.5-5.1); Total Bilirubin 0.6 mg/dL (0.2-1.3); Total Protein 6.9 g/dL (6.3-8.2)
== END | disposition home or self-care (01) ==
LOC: LABPAT 12:14
PROVIDERS: ATTEND Surgery Plastic and Reconstructive Surgery
DX: Z01.818 Encounter for other preprocedural examination (principal)
CPT/HCPCS: 36415; 80053; 85025

== ENCOUNTER 2020-08-03 06:14 | Inpatient (IN) | payer BC ==
--- NOTE | 2020-08-02 21:45 | P.GSHP ---
History of Present Illness H&P Date: 08/03/20 CHIEF COMPLAINT: Morbid obesity HISTORY OF PRESENT ILLNESS: Fabricio Ortiz is a 54-year-old male who comes with lifelong morbid obesity. He comes in looking into the sleeve gastrectomy. He has completed medical supervised weight loss with his primary care provider for over 2 years. His highest weight is 266 pounds. He comes in with obstructive sleep apnea, hypertensive heart disease including osteoarthritis bilateral knees. At height of 5 feet 7.5 inches, ideal body weight is 158 pounds. His highest weight was 266 pounds, BMI 41.0. He is 107 pounds overweight. PAST MEDICAL HISTORY: 1. Morbid obesity due to excess calories 2. Body mass index of 41.0 3. Osteoarthritis of the knees. 4. Obstructive sleep apnea 5. Hypertensive heart disease PAST SURGICAL HISTORY: 1. Ventral hernia repair 2. Right shoulder surgery 3. Bilateral eye surgeries HOME MEDICATIONS: Home Medications Medication Instructions Recorded Confirmed EPINEPHrine (Auto Inject) [Epipen] 0.3 mg IM ONCE PRN 11/30/17 06/08/20 Losartan Potassium 100 mg PO QAM 11/30/17 06/08/20 Nebivolol [Bystolic] 5 mg PO QAM 11/30/17 06/08/20 hydroCHLOROthiazide [Hydrodiuril] 25 mg PO QAM 11/30/17 06/08/20 Previous Rx's Medication Instructions Recorded Omeprazole [PriLOSEC] 40 mg PO DAILY #14 cap 03/18/20 ALLERGIES: Allergies Allergy/AdvReac Type Severity Reaction Status Date / Time bee venom protein (honey bee) Allergy Anaphylaxis Verified 06/08/20 15:18 SOCIAL HISTORY: No past tobacco use. FAMILY HISTORY: No family history of ulcerative colitis disease or Crohn's disease. Family history of morbid obesity. No lupus in the family. No reports of stomach or esophageal cancer. REVIEW OF ORGAN SYSTEMS: CONSTITUTIONAL: At height of 5 feet 7.5 inches, ideal body weight is 158 pounds. His highest weight was 266 pounds, BMI 41.0. He is 107 pounds overweight. HEENT: Denies any active troubles with vision or hearing. ENDOCRINE: No diabetes. No hypothyroidism. CARDIOVASCULAR: No past reports of palpitations or heart attacks or chest pain. His hypertension. RESPIRATORY: Has daytime somnolence. He has obstructive sleep apnea. GASTROINTESTINAL: Denies any bright red blood per rectum. No diarrhea. No constipation. MUSCULOSKELETAL: Has lower back pain and joint pain. Has osteoarthritis of the knees. NEURO: No headaches. No seizure disorders. PSYCH: No depression. No suicidal ideation. RHEUMATOLOGIC: No lupus. No rheumatoid arthritis. HEMATOLOGIC: Denies any abnormal bleeding or bruising. No personal history of DVTs. SKIN: No rash. No skin cancer. PHYSICAL EXAM: VITAL SIGNS: Height 5 foot 7.5 inches, weight 269 pounds. BMI 41.6 GENERAL: Well-developed in no acute distress. HEENT: No scleral icterus. Extraocular movements grossly intact. Hears conversational speech. No nasal drainage. NECK: Supple without lymphadenopathy. CHEST: Nonlabored respirations with equal bilateral excursions. CARDIOVASCULAR: Regular rate and regular rhythm. Distal 2+ pulses. ABDOMEN: Obese, soft, nontender, nondistended. MUSCULOSKELETAL: No clubbing, cyanosis. NEURO: No focal or lateralizing signs. Cranial nerves 2 through 12 grossly within normal limits. PSYCH: Appropriate affect. Alert and oriented to person, place and time. SKIN: Good skin turgor. Well perfused. ASSESSMENT: 1. Morbid obesity due to excess calories 2. Body mass index of 41.0, initial 3. Osteoarthritis of the knees. 4. Obstructive sleep apnea 5. Hypertensive heart disease PLAN: 1. Bariatric options between a sleeve, band and a Nacho-en-Y gastric bypass were reviewed in detail. The patient elected for a sleeve gastrectomy. Robotic assisted approach described. 2. The [place] [facility] Data was also reviewed with benefits and risks as described. 3. An 8 page second-generation bariatric consent form was reviewed in detail including potential of bleeding, infection, leaks, adequate weight loss, nutritional deficiencies which the patient demonstrated understanding of the risks. 4. A 2 week high-protein low caloric 800 kcal diet described to address hepatomegaly. 5. Preoperative labs including complete metabolic panel and CBC with type and screen recommended. 6. DVT prophylaxis per [place] [facility]ariat[facility] surgery collaborative. 7. Antibiotic prophylaxis. 8. Inpatient hospitalization anticipated for more than 2 nights. 9. All questions and concerns were addressed with the patient. 10. Overall, patient has expressed understanding of bariatric care including postoperative diet and commitment of lifestyle. Patient should benefit from surgical intervention for correction of her morbid obesity. Past Medical History Past Medical History: Hypertension, Osteoarthritis (OA), Sleep Apnea/CPAP/BIPAP Additional Past Medical History / Comment(s): uses CPAP History of Any Multi-Drug Resistant Organisms: None Reported Past Surgical History: Hernia Repair, Joint Replacement, Orthopedic Surgery Additional Past Surgical History / Comment(s): total right knee, rt shoulder surgery, BILATERAL EYE SURGERY for muscles as child Past Anesthesia/Blood Transfusion Reactions: No Reported Reaction Smoking Status: Never smoker - Past Family History Father Family Medical History: Cancer Mother Family Medical History: Cancer Sister(s) Family Medical History: Cancer Medications and Allergies Home Medications Medication Instructions Recorded Confirmed Type EPINEPHrine (Auto Inject) [Epipen] 0.3 mg IM ONCE PRN 11/30/17 07/30/20 History Losartan Potassium 100 mg PO QAM 11/30/17 07/30/20 History Nebivolol [Bystolic] 5 mg PO QAM 11/30/17 07/30/20 History hydroCHLOROthiazide [Hydrodiuril] 25 mg PO QAM 11/30/17 07/30/20 History Allergies Allergy/AdvReac Type Severity Reaction Status Date / Time bee venom protein (honey bee) Allergy Anaphylaxis Verified 07/30/20 14:02
[~2020-08-03 06:14] MED LIST changes: +ACETAMINOPHEN TAB 500 MG TAB PO STA; +CHLORHEXIDINE GLUCONATE 15 ML CUP MUCOUS MEM PRN; +DEXAMETHASONE SOD PHOSPHATE 4 MG/ML 1 ML VIAL IV ONE; +ENOXAPARIN 40 MG/0.4 ML SYRINGE SQ PRN; +GABAPENTIN 300 MG CAP PO STA; -LACTATED RINGERS 1,000 ML IV SCH; +ONDANSETRON 4 MG/2 ML VIAL IVP ONE; +PANTOPRAZOLE 40 MG/10 ML VIAL IV PRN; +TAMSULOSIN 0.4 MG CAP.ER.24H PO STA; +ceFAZolin 3 GM in SODIUM CHLORIDE 0.9% 100 ML IVPB PRN
[2020-08-03] MEDS: LACTATED RINGERS 1,000 ML IV SCH (07:10)
[2020-08-03] MEDS ORDERED: fentaNYL (PF) 50 MCG/ML 2 ML AMP ONE (07:30)
[2020-08-03] MEDS ORDERED: ePHEDrine SULFATE/0.9% NACL/PF 50 MG/5 ML SYRINGE IV ONE (07:30)
[2020-08-03] MEDS ORDERED: SUCCINYLCHOLINE CHLORIDE VIAL 200 MG/10 ML VIAL IV ONE (07:30)
[2020-08-03] MEDS ORDERED: NEOSTIGMINE 1 MG/ML 10 ML VIAL ONE (07:30)
[2020-08-03] MEDS ORDERED: MIDAZOLAM 2 MG/2 ML VIAL ONE (07:30)
[2020-08-03] MEDS ORDERED: GLYCOPYRROLATE 0.2 MG/ML 2 ML VIAL ONE (07:30)
[2020-08-03] MEDS ORDERED: LIDOCAINE 1% INJ 10MG/ML (20 ML MDV) ONE (07:30)
[2020-08-03] MEDS ORDERED: HYDROmorphone (PF) 1 MG/ML ONE (07:30)
[2020-08-03] MEDS ORDERED: ROCURONIUM 10 MG/ML (10 ML VIAL) IV ONE (07:30)
[2020-08-03] MEDS ORDERED: PROPOFOL 10 MG/ML 20 ML VIAL IV ONE (07:30)
[2020-08-03 07:41] LABS: ALT 48 U/L (4-49); AST 33 U/L (17-59); African American GFR (CKD) >90 (>60 ml/min/1.73 sqM); Albumin 4.2 g/dL (3.5-5.0); Alkaline Phosphatase 51 U/L (38-126); Anion Gap 9 mmol/L; Blood Urea Nitrogen 18 mg/dL (9-20); Calcium 9.3 mg/dL (8.4-10.2); Carbon Dioxide 27 mmol/L (22-30); Chloride 105 mmol/L (98-107); Glucose 98 mg/dL (74-99); Non-African American GFR(CKD) >90 (>60 ml/min/1.73 sqM); Potassium 3.8 mmol/L (3.5-5.1); Sodium 141 mmol/L (137-145); Total Bilirubin 0.5 mg/dL (0.2-1.3)
[2020-08-03] MEDS ORDERED: LIDOCAINE 1%-EPI 1:100,000 20 ML VIAL SQ ONE (08:00)
[2020-08-03] MEDS ORDERED: LACTATED RINGERS 1,000 ML IV ONE (08:53)
--- NOTE | 2020-08-03 09:28 | P.OP ---
Date of Procedure: 08/03/20 Description of Procedure: SURGEON: KATHERINE BURCIAGA MD PREOPERATIVE DIAGNOSES: 1. Morbid obesity due to excess calories 2. Body mass index of 41.0, initial 3. Osteoarthritis of the knees. 4. Obstructive sleep apnea 5. Hypertensive heart disease POSTOPERATIVE DIAGNOSES: 1. Morbid obesity due to excess calories 2. Body mass index of 41.0, initial 3. Osteoarthritis of the knees. 4. Obstructive sleep apnea 5. Hypertensive heart disease OPERATION: 1. Robotic assisted daVinci Xi laparoscopic sleeve gastrectomy with 40-Italian bougie, multiport. 2. Intraoperative esophagogastroduodenoscopy. ANESTHESIA: Gen. local anesthetic ESTIMATED BLOOD LOSS: 5 mL SPECIMENS REMOVED: Sleeve gastrectomy COMPLICATIONS: None. INDICATIONS: Fabricio Ortiz is a 54-year-old male who comes with lifelong morbid obesity. He comes in looking into the sleeve gastrectomy. He has completed medical supervised weight loss with his primary care provider for over 2 years. His highest weight is 266 pounds. He comes in with obstructive sleep apnea, hypertensive heart disease including osteoarthritis bilateral knees. At height of 5 feet 7.5 inches, ideal body weight is 158 pounds. His highest weight was 266 pounds, BMI 41.0. He is 107 pounds overweight. He comes in 254 pounds. All surgical options for morbid obesity had been described using the [place] bariatric surgery collaborative comorbidity resolution including complication risk score. A second-generation bariatric consent form was described in detail including the possibility of protein malnutrition, leaks, gastric stricture, venous thrombosis, gastroesophageal reflux disease, need for further surgery for which he demonstrated understanding. Benefits and risks of the procedure were described at length. Informed consent was obtained. DESCRIPTION: The patient was brought into the operating room theater. Preoperati vely he had received Lovenox subcutaneously for DVT prophylaxis. Additionally he had Peridex oral solution as an oral decontaminant. After general induction, the abdomen was prepped and draped in standard sterile fashion. An Ioban draping was placed along the abdomen. Nicholson catheter was placed. A robotic da Willa Xi system was prepped and primed. At 15 cm from the xiphoid, proposed port sites were marked with indelible marker along the anterior axillary line bilaterally, mid axillary line bilaterally with each ports were marked 10 to 15 cm from each other. The assistant corporate secretary port was marked along the left lateral abdominal wall. The robotic stapler port was marked for the right midclavicular line. A 5 mm 0 degrees laparoscopic trocar entry was performed along the left upper quadrant. The abdomen was insufflated to 15 mmHg pressure he tolerated well. Diagnostic laparoscopy demonstrated no injury to bowel, viscera, or mesentery. The liver surface was unremarkable without evidence of hepatomegaly or fatty liver disease. No injury had occurred to the small bowel or viscera. Along the hiatus no hiatal hernia was found. Greater omentum to abdominal wall adhesions along the epigastrium was found from previous umbilical hernia repair with mesh placement. These adhesions were undisturbed. A 8 mm port was placed along the right upper abdominal wall after exchanging the 5 mm port. A separate 8 mm port was placed along the left lateral abdominal wall. Please note that the ports were placed at least 20 cm away from the target anatomy. Care was taken to check each robotic arms were safely away from collision with the bed or the patient. At the epigastrium, a medium sized Michelle liver retractor was placed under direct visualization with the Iron Stained Glass Glazier Helper placed under the right shoulder of the patient. Next, 12-mm robot stapler port was placed along the right upper quadrant. The camera 8-mm port was maintained along the epigastrium. The patient was repositioned in reverse Trendelenburg position at 16-degrees after lowering the bed. The robot was docked along the left side of the patient. Using a grasper for arm 4, a veseel sealer for arm 3, including grasper for arm 1, the robotic system was docked and primed as described. Instruments were interchanged by the assistant corporate secretary for stapler loads. The camera was placed at 30-degrees down. I had sat at the console. The pylorus was identified and 6 cm proximally along the greater curvature of the stomach, the short gastrics were mobilized upwards to the angle of His using a vessel sealer. Hemostasis was excellent during this portion of the procedure. Next, the upper pole of the stomach was adherent to the left blaine, which was gently dissected free using atraumatic grasper. The nursing maintenance helper placed a 40-Italian blunted tip bougie into the stomach. Robotic stapler black loads 60 mm x 1 followed by green 60 mm x 1, blue 60 mm x 5 were used to create the sleeve. Initial firing was across the antrum of the stomach towards the angle of His. The staple line was completely hemostatic and linear without corkscrewing. Hemostasis was excellent. The space from the angularis incisura of the sleeve was approximately 4 cm. I then went to the head of the bed to perform the intraoperative esophagogastroduodenoscopy leak test. The upper pole of the stomach was bathed using normal saline solution. The scope was withdrawn with careful inspection along the staple line for which no leaks were found along the entire length. Additionally, the sleeve was completely hemostatic without any encroachment along the angularis incisura. Its topology was a soft "J". No stricture was encountered upon placement of the scope. The GI tract was desufflated. The patient tolerated this portion of the procedure well. The scope was completely withdrawn. The robot was undocked. I then rescrubbed into case, whereby the irrigation fluid was aspirated from the abdominal cavity. Tisseel fibrin sealant was placed along the entire staple length. Once dried the Michelle liver retractor was removed. Attention was now brought to removal of the specimen. The distal end of the sleeve gastrectomy specimen was brought out through the 12 mm port at the left upper quadrant. The specimen was gently removed en total, corresponding to 25 cm x 4 cm sleeve gastrectomy specimen. No contamination had occurred during this process. All instruments and pneumoperitoneum including irrigation fluid was removed from the abdominal cavity. The 12 mm port site was irrigated with warm normal saline solution and diluted hydron peroxide. The 12-mm port site was reapproximated using 0 Vicryl and Karthikeyan-Odalys of the left upper quadrant. The final incisions were closed using subcuticular interrupted suture of 4-0 Monocryl. Dermabond was applied to the skin once the skin had been cleansed. OptiFoam dressing was placed along the stomach extraction site. At the end of the procedure, needle, sponge, and instrument count was verified correct by the surgical elastic knitter. The patient was taken to the postanesthesia care unit in stable condition. He had tolerated the procedure well. Intraoperative films and findings were reviewed with the patient's family. FINDINGS: 1. Negative intraoperative esophagogastrojejunoscopy leak test. 2. No large hiatus hernia. 3. Total of 7 staplers used including 1 - 60 mm black, 1 - 60 mm green, 5 -60 mm blue robot gertrudis used to create the gastric sleeve. 4. Sleeve gastrectomy 25 x 4 cm
[2020-08-03] MEDS: HYDROmorphone 0.5 MG/0.5 ML SYRINGE IVP PRN ×4 (09:31→10:00)
[2020-08-03] MEDS ORDERED: ONDANSETRON 4 MG/2 ML VIAL IVP ONE (09:35)
[2020-08-03] MEDS ORDERED: NALOXONE 0.4 MG/ML 1 ML VIAL IV PRN (13:35)
[2020-08-03] MEDS ORDERED: diphenhydrAMINE 50 MG/ML 1 ML VIAL IVP PRN (13:35)
[2020-08-03] MEDS ORDERED: TRIMETHOBENZAMIDE 100 MG/ML 2 ML VIAL IM PRN (13:38)
[2020-08-03] MEDS ORDERED: DEXAMETHASONE SOD PHOSPHATE 10 MG/ML 1 ML VIAL IV STA (13:38)
[2020-08-03] MEDS ORDERED: SODIUM CHLORIDE 0.9% 2,000 ML IV ONE (13:38)
[2020-08-03] MEDS ORDERED: SCOPOLAMINE 1.5MG/72HR PATCH TRANSDERM STA (13:38)
[2020-08-03] MEDS: ONDANSETRON 4 MG/2 ML VIAL IVP SCH ×3 (14:02→23:15)
[2020-08-03] MEDS: SIMETHICONE 40 MG/0.6 ML DROPS 2,000 MG/30 ML BOTTLE PO SCH ×3 (14:06→23:16)
[2020-08-03] MEDS: ACETAMINOPHEN IV (For NPO) 1,000 MG in EMPTY BAG 1 BAG IVPB SCH ×3 (14:07→23:12)
[2020-08-03] MEDS: ALBUTEROL NEBULIZED 2.5 MG/3 ML INHALATION SCH ×2 (15:14→19:50)
[2020-08-03] MEDS: 0.9% NACL WITH KCL 20 MEQ/L 1,000 ML IV SCH ×3 (16:56→23:11)
[2020-08-03] MEDS: KETOROLAC 15 MG/ML 1 ML VIAL IVP SCH ×2 (17:03→23:15)
[2020-08-03] MEDS: HYOSCYAMINE ORAL DROPS 1.875 MG/15 ML BOTTLE PO SCH ×2 (17:06→23:16)
[2020-08-04] MEDS: KETOROLAC 15 MG/ML 1 ML VIAL IVP SCH ×3 (05:21→17:25)
[2020-08-04] MEDS: ACETAMINOPHEN IV (For NPO) 1,000 MG in EMPTY BAG 1 BAG IVPB SCH (05:22)
[2020-08-04] MEDS: ONDANSETRON 4 MG/2 ML VIAL IVP SCH ×3 (05:23→17:26)
[2020-08-04] MEDS: HYOSCYAMINE ORAL DROPS 1.875 MG/15 ML BOTTLE PO SCH ×3 (05:24→17:29)
[2020-08-04] MEDS: SIMETHICONE 40 MG/0.6 ML DROPS 2,000 MG/30 ML BOTTLE PO SCH ×3 (05:24→17:28)
[2020-08-04] MEDS: 0.9% NACL WITH KCL 20 MEQ/L 1,000 ML IV SCH (05:31)
[2020-08-04] MEDS: LACTATED RINGERS 1,000 ML IV SCH (05:46)
[2020-08-04] MEDS ORDERED: 1: MVI, ADULT NO.4 WITH VIT K 10 ML, THIAMINE 100 MG, FOLIC ACID 1 MG, POTASSIUM CHLORID IV SCH ×6 (08:00)
[2020-08-04] MEDS ORDERED: TAMSULOSIN 0.4 MG CAP.ER.24H PO SCH (08:30)
[2020-08-04] MEDS: ALBUTEROL NEBULIZED 2.5 MG/3 ML INHALATION SCH ×4 (08:42→19:42)
[2020-08-04 08:45] LABS: Basophils % (A) 0 %; Eosinophils % (A) 0 %; HCT 39.1 % (39.0-53.0); HGB 12.9 gm/dL (13.0-17.5); Lymphocytes # (A) 1.5 k/uL (1.0-4.8); Lymphocytes % (A) 18 %; MCH 29.9 pg (25.0-35.0); MCHC 32.9 g/dL (31.0-37.0); MCV 90.8 fL (80.0-100.0); Monocytes # (A) 0.6 k/uL (0-1.0); Monocytes % (A) 7 %; Neutrophils % (A) 73 %; Platelet Count 249 k/uL (150-450); RDW 14.3 % (11.5-15.5); WBC 8.3 k/uL (3.8-10.6)
[2020-08-04] MEDS ORDERED: ENOXAPARIN 40 MG/0.4 ML SYRINGE SQ SCH (09:00)
[2020-08-04] MEDS ORDERED: PANTOPRAZOLE 40 MG/10 ML VIAL IV SCH (09:00)
[2020-08-04] MEDS ORDERED: SODIUM CHLORIDE 0.9% 2,000 ML IV ONE (09:25)
[2020-08-04 09:31] VITALS: RESP 22
[2020-08-04 10:58] VITALS: BMI 39.8
--- NOTE | 2020-08-04 13:08 | FL ---
EXAMINATION TYPE: FL UGI DATE OF EXAM: 08/04/2020 COMPARISON: NONE HISTORY: Postop gastric sleeve TECHNIQUE: A single/double contrast UGI study is performed. FINDINGS: Attention directed to the level of the patient's surgery. Patient was given Isovue-370 to d rink. 31 seconds fluoroscopy time, 4 images obtained. Swallowing mechanism is normal. There is no evident leak or obstruction to flow. Post op changes are suspected to the stomach. Contrast flows readily into the proximal small bowel. Minimal pneumoperiton eum identified. Some minimal basilar atelectasis suspected. IMPRESSION: Postop changes as described
[2020-08-04] MEDS ORDERED: DEXAMETHASONE SOD PHOSPHATE 10 MG/ML 1 ML VIAL IV STA (13:44)
--- NOTE | 2020-08-04 13:49 | P.PN ---
Subjective Progress Note Date: 08/04/20 CHIEF COMPLAINT: Morbid obesity HISTORY OF PRESENT ILLNESS: Patient is postop day #1 status post Robotic assisted daVinci Xi laparoscopic sleeve gastrectomy and Intraoperative esophagogastroduodenoscopy. Patient is complaining of nausea and gas pains up in his upper shoulders. No vomiting. He denies passing any gas or bowel movement. Upper GI completed showing no evidence of leak or obstruction. He is currently on a bariatric clear liquid diet. WBC 8.3 hemoglobin 12.9 creatinine and electrolytes are pending PHYSICAL EXAM: VITAL SIGNS: Reviewed. GENERAL: Well-developed in no acute distress. HEENT: No sclera icterus. Extraocular movements grossly intact. Moist buccal mucosa. Head is atraumatic, normocephalic. ABDOMEN: Soft. Mildly distended. Abdominal binder in place NEUROLOGIC: Alert and oriented. Cranial nerves II through XII grossly intact. ASSESSMENT: 1. Morbid obesity due to excess calories status post Robotic assisted daVinci Xi laparoscopic sleeve gastrectomy and Intraoperative esophagogastroduodenoscopy 2. Body mass index of 41.0, initial 3. Osteoarthritis of the knees. 4. Obstructive sleep apnea 5. Hypertensive heart disease PLAN: -Patient given a 2 L normal saline fluid bolus -Decadron 10 mg IV 1 for nausea -Continue IV fluids -Continue Toradol for pain -Continue Zofran and scopolamine patch for nausea -GI prophylaxis Protonix and Lovenox for DVT prophylaxis Physician Records Coordinator note has been reviewed by physician. Signing provider agrees with the documented findings, assessment, and plan of care. Objective - Vital Signs Vital signs: Vital Signs Temp 97.7 F 08/04/20 08:00 Pulse 72 08/04/20 12:23 Resp 22 08/04/20 08:00 BP 153/86 08/04/20 08:00 Pulse Ox 94 L 08/04/20 12:16 Intake & Output 08/03/20 08/04/20 08/04/20 18:59 06:59 18:59 Intake Total 1700 2000 Output Total 205 1050 Balance 1495 950 Weight 115.4 kg 115.4 kg Intake: IV 1700 Intake, IV Titration 2000 Amount 0.9% NaCl with KCl 20 Meq 1700 /l 1,000 ml @ 150 mls/hr IV .[id number] DAVID Rx#: [id number] ACETAMINOPHEN IV (For NPO 200 ) 1,000 mg In Empty Bag 1 bag @ 400 mls/hr IVPB Q6HR [facility] Rx#:[id number] ceFAZolin 2 gm In Sodium 100 Chloride 0.9% 50 ml @ 100 mls/hr IVPB Q8HR [facility] Rx# :[id number] Output: Urine 200 1050 Estimated Blood Loss 5 Other: Voiding Method Toilet # Voids 1 - Labs CBC & Chem 7: 08/04/20 07:59 08/03/20 07:05 Labs: Abnormal Lab Results - Last 24 Hours (Table) 08/04/20 Range/Units 07:59 Hgb 12.9 L (13.0-17.5) gm/dL
[2020-08-04 14:47] VITALS: BP 151/65; TEMP 98
[2020-08-04 16:49] LABS: Anion Gap 9.6 mmol/L (4.00-12.00); Carbon Dioxide 24.4 mmol/L (21.6-31.8); Magnesium 1.7 mg/dL (1.5-2.4); Potassium 4.4 mmol/L (3.5-5.5)
[2020-08-04 16:50] LABS: African American GFR (CKD) 115.7 (60.0-200.0); Calcium 8.3 mg/dL (8.7-10.3); Non-African American GFR(CKD) 99.9 (60.0-200.0); Phosphorus 3.5 mg/dL (2.4-5.1)
[2020-08-04 20:03] VITALS: PULSE 72
--- NOTE | 2020-08-04 20:17 | P.DS ---
Providers Date of admission: 08/03/20 06:14 Expected date of discharge: 08/04/20 Attending physician: Kaela Hamilton Primary care physician: Geremias Gonzalez Plan - Discharge Summary Discharge Rx Participant: No New Discharge Prescriptions: New bisacodyL [Dulcolax] 5 mg PO DAILY PRN #10 tablet.dr ELLISON Reason: Constipation Simethicone 40 mg/0.6 ml Drops [Mylicon Drops] 40 mg PO PCHS PRN #30 ml PRN Reason: Gas Omeprazole [PriLOSEC] 40 mg PO DAILY #30 capsule. Ondansetron Odt [Zofran Odt] 4 mg PO Q8HR PRN #9 tab PRN Reason: Nausea Acetaminophen Oral Susp [Tylenol Oral Susp] 1,000 mg PO Q4-6H PRN #400 ml PRN Reason: Pain Continue EPINEPHrine (Auto Inject) [Epipen] 0.3 mg IM ONCE PRN PRN Reason: Anaphylaxis Nebivolol [Bystolic] 5 mg PO QAM Losartan Potassium 100 mg PO QAM Discontinued hydroCHLOROthiazide [Hydrodiuril] 25 mg PO QAM Discharge Medication List EPINEPHrine (Auto Inject) [Epipen] 0.3 mg IM ONCE PRN 11/30/17 [History] Losartan Potassium 100 mg PO QAM 11/30/17 [History] Nebivolol [Bystolic] 5 mg PO QAM 11/30/17 [History] Acetaminophen Oral Susp [Tylenol Oral Susp] 1,000 mg PO Q4-6H PRN #400 ml 08/04/20 [Rx] Omeprazole [PriLOSEC] 40 mg PO DAILY #30 capsule. 08/04/20 [Rx] Ondansetron Odt [Zofran Odt] 4 mg PO Q8HR PRN #9 tab 08/04/20 [Rx] Simethicone 40 mg/0.6 ml Drops [Mylicon Drops] 40 mg PO PCHS PRN #30 ml 08/04/20 [Rx] bisacodyL [Dulcolax] 5 mg PO DAILY PRN #10 tablet. 08/04/20 [Rx] Follow up Appointment(s)/Referral(s): [place], [place] [NON-STAFF] - 08/12/20 Patient Instructions/Handouts: Nutrition after Bariatric Surgery (DC), Laparoscopic Sleeve Gastrectomy (DC) Activity/Diet/Wound Care/Special Instructions: Liquid diet only for 2 weeks until August 17. No lifting over 4 pounds in 4 weeks, September 03December Shower. No soaking in bath tubs, until August 17. Please notify your surgeon if you develop nausea and vomiting including new onset of abdominal pain. Continue to use incentive spirometry to prevent pneumonias. Please continue to ambulate at home to prevent blood clots in legs. You have new prescriptions at your local pharmacy. Follow-up at the bariatric center. Dressings to be discontinued by surgeon in the office. Drink 64 oz of fluid daily. Start protein shakes on . Notify bariatric center for temp over 101.0, increased pain, drainage from incisions. No straws or carbonated beverages. Liquid diet only. Sugar content should be less than 6 g to avoid dumping syndrome. Take MOM for constipation. CRUSH, OPEN, OR CUT TABLETS LARGER THAN A SIZE OF A TIC TAC Discharge Disposition: HOME SELF-CARE
[2020-08-05] MEDS ORDERED: bisacodyL 5 MG TABLET.DR PO PRN (08:00)
== END 2020-08-04 21:38 | disposition home or self-care (01) | DRG 621 ==
LOC: 2ORMAIN 06:14 → 4SSUR 13:09
PROVIDERS: ADMIT Surgery Plastic and Reconstructive Surgery; ATTEND Surgery Plastic and Reconstructive Surgery
DX: E66.01 Morbid (severe) obesity due to excess calories (principal); G47.33 Obstructive sleep apnea (adult) (pediatric); I11.9 Hypertensive heart disease without heart failure; M17.0 Bilateral primary osteoarthritis of knee; Z96.651 Presence of right artificial knee joint; Z96.611 Presence of right artificial shoulder joint; K66.0 Peritoneal adhesions (postprocedural) (postinfection); Z68.41 Body mass index [BMI] 40.0-44.9, adult; Z98.890 Other specified postprocedural states; Z91.030 Bee allergy status; Z80.9 Family history of malignant neoplasm, unspecified
CPT/HCPCS: 74240; 80051; 80053; 82310; 82565; 83735; 84100; 84520; 85025; 86850; 86900; 86901; 88307; 94640; 94760; 94762

== ENCOUNTER → 2020-08-10 | Outpatient (CLI) | payer BC ==
[2020-08-10 11:00] VITALS: BP 163/90; PULSE 75; TEMP 98.2; BMI 38.4
== END | disposition home or self-care (01) ==
LOC: BARWHC3 10:01
PROVIDERS: ATTEND Surgery Plastic and Reconstructive Surgery
DX: Z48.815 Encounter for surgical aftercare following surgery on the digestive system (principal); Z98.84 Bariatric surgery status; Z79.899 Other long term (current) drug therapy
CPT/HCPCS: 99211

== ENCOUNTER → 2020-08-26 | Outpatient (CLI) | payer BC ==
[2020-08-26 14:41] VITALS: BP 154/91; PULSE 61; RESP 18; TEMP 97.9; BMI 37.8
--- NOTE | 2020-08-26 15:05 | P.PN ---
Subjective Progress Note Date: 08/26/20 DATE OF SERVICE: 08/26/2020 CHIEF COMPLAINT: Status post sleeve gastrectomy HISTORY OF PRESENT ILLNESS: Fabricio Ortiz is a 54-year-old male status post sleeve gastrectomy, 08/03/2020. He is 3 weeks out. He just started a food diary journal. He is averaging 75+ grams of protein daily. He has lost 20+ pounds. He is sore from stretching. He has occasional constipation. His ounces of fluids is less than 60 ounces daily. At height of 5 feet 7.5 inches, ideal body weight is 158 pounds. His highest weight was 266 pounds, BMI 41.0. He comes in 244 pounds from 266 pounds, 5 months. He has lost 21 pounds in 5 months. Lifetime percent excess weight loss 20%. Lifetime weight loss 22 pounds. He is 86 pounds overweight. PHYSICAL EXAM: VITAL SIGNS: Height 5 foot 7.5 inches, weight 244 pounds. BMI 37.8 Vital Signs Temp 97.9 F 08/26/20 14:31 Pulse 61 08/26/20 14:31 Resp 18 08/26/20 14:31 BP 154/91 08/26/20 14:31 Pulse Ox GENERAL: Well-developed in no acute distress. HEENT: No scleral icterus. Extraocular movements grossly intact. Hears conversational speech. No nasal drainage. NECK: Supple without lymphadenopathy. CHEST: Nonlabored respirations with equal bilateral excursions. CARDIOVASCULAR: Regular rate and regular rhythm. Distal 2+ pulses. ABDOMEN: Incisions completely granulated. MUSCULOSKELETAL: No clubbing, cyanosis. NEURO: No focal or lateralizing signs. Cranial nerves 2 through 12 grossly within normal limits. PSYCH: Appropriate affect. Alert and oriented to person, place and time. SKIN: Good skin turgor. Well perfused. ASSESSMENT: 1. Morbid obesity due to excess calories 2. Body mass index of 41.0 down to 37.8 3. Osteoarthritis of the knees. 4. Obstructive sleep apnea 5. Hypertensive heart disease 6. Status post sleeve gastrectomy PLAN: 1. Recommend bariatric labs. 2. Increase fluid intake over 64 ounces daily. Objective - Vital Signs Vital signs: Vital Signs Temp 97.9 F 08/26/20 14:31 Pulse 61 08/26/20 14:31 Resp 18 08/26/20 14:31 BP 154/91 08/26/20 14:31 Pulse Ox Intake & Output 08/25/20 08/26/20 08/26/20 18:59 06:59 18:59 Weight 111.13 kg - Labs CBC & Chem 7: 08/26/20 15:26 08/26/20 15:26
--- NOTE | 2020-08-26 15:08 | P.PN ---
Progress Note - Text Progress Note Date: 08/26/20 To whom it may concern: Fabricio Ortiz is under my surgical care. He may return to work without restrictions Monday, September 14, 2020. Regards, Kaela Hamilton MD FACS
[2020-08-26 16:11] LABS: HCT 46.9 % (39.0-53.0); HGB 14.7 gm/dL (13.0-17.5); MCH 28.3 pg (25.0-35.0); MCHC 31.3 g/dL (31.0-37.0); MCV 90.2 fL (80.0-100.0); Mean Platelet Volume 7.6; Platelet Count 306 k/uL (150-450); RDW 14.9 % (11.5-15.5); WBC 7.3 k/uL (3.8-10.6)
[2020-08-26 23:49] LABS: INR 1.04 (0.90-1.11); Prothrombin Time 11.2 sec (9.9-11.9)
[2020-08-27 03:51] LABS: % Iron Saturation 14.4 (15.00-50.00); African American GFR (CKD) 110.3 (60.0-200.0); Albumin 4.5 g/dL (3.80-4.90); Albumin/Globulin Ratio 2.37 (1.60-3.17); Anion Gap 10.5 mmol/L (4.00-12.00); Calcium 9.8 mg/dL (8.7-10.3); Carbon Dioxide 27.5 mmol/L (21.6-31.8); Chol/HDL Ratio 3.86; Globulin 1.9 g/dL (1.6-3.3); Magnesium 1.9 mg/dL (1.5-2.4); Non-African American GFR(CKD) 95.1 (60.0-200.0); Phosphorus 3.5 mg/dL (2.4-5.1); Potassium 4.5 mmol/L (3.5-5.5); Total Bilirubin 0.5 mg/dL (0.3-1.2); Total Protein 6.4 g/dL (6.2-8.2)
[2020-08-27 04:04] LABS: Ferritin 205.2 ng/mL (22.0-322.0)
[2020-08-27 04:06] LABS: Folate, Serum 15.6 ng/mL
[2020-08-28 13:14] LABS: Zinc, Serum 80 ug/dL (60-130)
[2020-08-30 17:04] LABS: Selenium 152 mcg/L (63-160)
[2020-08-31 07:04] LABS: Vitamin A 37 ug/dL (38-106)
[2020-08-31 13:27] LABS: Vit B1(Thiamine) 64 ug/L (38-122)
== END | disposition home or self-care (01) ==
LOC: BARWHC3 13:29
PROVIDERS: ATTEND Surgery Plastic and Reconstructive Surgery
DX: E66.01 Morbid (severe) obesity due to excess calories (principal); M17.0 Bilateral primary osteoarthritis of knee; G47.33 Obstructive sleep apnea (adult) (pediatric); I11.9 Hypertensive heart disease without heart failure; Z71.3 Dietary counseling and surveillance; D50.8 Other iron deficiency anemias; E44.0 Moderate protein-calorie malnutrition; E55.9 Vitamin D deficiency, unspecified; K74.1 Hepatic sclerosis; N19 Unspecified kidney failure; K50.90 Crohn's disease, unspecified, without complications; Z68.37 Body mass index [BMI] 37.0-37.9, adult; Z98.84 Bariatric surgery status
CPT/HCPCS: 80053; 80061; 82306; 82525; 82607; 82728; 82746; 83036; 83540; 83550; 83735; 83970; 84100; 84134; 84255; 84425; 84443; 84590; 84630; 85027; 85610; 85730; 97803; 99211

== ENCOUNTER → 2020-10-28 | Outpatient (CLI) | payer BC ==
--- NOTE | 2020-10-28 15:47 | P.PN ---
Subjective Progress Note Date: 10/28/20 He is very happy. He reports right upper quadrant pain. He is having gall bladder pain. He is no longer snoring. He is off snoring machine and is CPAP. Highest weight was 278 pounds. He reports occasional water weight. He has gallbladder problems and recommend cholecystectomy
[2020-10-28 16:10] VITALS: BMI 35.2
[2020-10-28 17:00] LABS: HCT 45.6 % (39.0-53.0); HGB 15.3 gm/dL (13.0-17.5); MCH 30.8 pg (25.0-35.0); MCHC 33.4 g/dL (31.0-37.0); MCV 92.1 fL (80.0-100.0); Mean Platelet Volume 7.2; Platelet Count 252 k/uL (150-450); RBC 4.96 m/uL (4.30-5.90); RDW 14.2 % (11.5-15.5); WBC 7.7 k/uL (3.8-10.6)
[2020-10-29 00:46] LABS: INR 1.01 (0.90-1.11); Partial Thromboplastin Time 29.3 sec (23.5-31.0)
[2020-10-29 05:12] LABS: Hemoglobin A1C 4.8 % (4.0-6.0)
[2020-10-29 06:21] LABS: % Iron Saturation 18.05 (15.00-50.00); African American GFR (CKD) 96.4 (60.0-200.0); Albumin 4.4 g/dL (3.80-4.90); Albumin/Globulin Ratio 2.59 (1.60-3.17); Anion Gap 9.7 mmol/L (4.00-12.00); Calcium 9.5 mg/dL (8.7-10.3); Carbon Dioxide 27.3 mmol/L (21.6-31.8); Chol/HDL Ratio 3.8; Globulin 1.7 g/dL (1.6-3.3); LDL Cholesterol,Calculated 86.4 mg/dL (0.0-131.0); Magnesium 2.1 mg/dL (1.5-2.4); Non-African American GFR(CKD) 83.2 (60.0-200.0); Phosphorus 3.2 mg/dL (2.4-5.1); Total Bilirubin 0.5 mg/dL (0.3-1.2); Total Protein 6.1 g/dL (6.2-8.2); VLDL Calculation 25.6 mg/dL (5.00-40.00)
[2020-10-29 06:29] LABS: Ferritin 105.8 ng/mL (22.0-322.0)
[2020-10-29 07:41] LABS: Folate, Serum 9.9 ng/mL
[2020-10-29 14:55] LABS: Zinc, Serum 54 ug/dL (60-130)
[2020-10-30 07:39] LABS: Vitamin A 41 ug/dL (38-106)
[2020-10-30 11:03] LABS: Vit B1(Thiamine) 57 ug/L (38-122)
[2020-11-01 17:22] LABS: Selenium 135 mcg/L (63-160)
== END ==
LOC: BARWHC3 14:25
PROVIDERS: ATTEND Surgery Plastic and Reconstructive Surgery
DX: E66.01 Morbid (severe) obesity due to excess calories (principal); D50.8 Other iron deficiency anemias; K90.89 Other intestinal malabsorption; E55.9 Vitamin D deficiency, unspecified; K74.1 Hepatic sclerosis; N19 Unspecified kidney failure; K50.90 Crohn's disease, unspecified, without complications; E29.1 Testicular hypofunction
CPT/HCPCS: 80053; 80061; 82306; 82525; 82607; 82728; 82746; 83036; 83540; 83550; 83735; 83970; 84100; 84134; 84255; 84425; 84443; 84590; 84630; 85027; 85610; 85730; 97803; 99211

== ENCOUNTER → 2020-11-06 | Day surgery (SDC) | payer BC ==
[2020-11-04 16:09] VITALS: BMI 32.6
[~2020-11-06] MED LIST changes: +ACETAMINOPHEN TAB 500 MG TAB PO PRN; -ACETAMINOPHEN TAB 500 MG TAB PO STA; +ATROPINE SULFATE 0.4 MG/ML 1 ML VIAL ONE; -CHLORHEXIDINE GLUCONATE 15 ML CUP MUCOUS MEM PRN; -ENOXAPARIN 40 MG/0.4 ML SYRINGE SQ PRN; +GABAPENTIN 300 MG CAP PO PRN; -GABAPENTIN 300 MG CAP PO STA; +GLYCOPYRROLATE 0.2 MG/ML 2 ML VIAL ONE; +HEPARIN SODIUM,PORCINE 5,000 UNIT/ML 1 ML VIAL SQ PRN; +HYDROmorphone 0.5 MG/0.5 ML SYRINGE IVP PRN; +INDOCYANINE GREEN 25 MG VIAL IV PRN; +LACTATED RINGERS 1,000 ML IV ONE; +LACTATED RINGERS 1,000 ML IV SCH; +LIDOCAINE 1% (10MG/ML) FOR IV START INTRADERMA ONE; +MIDAZOLAM 2 MG/2 ML VIAL IV PRN; +MIDAZOLAM 2 MG/2 ML VIAL ONE; -PANTOPRAZOLE 40 MG/10 ML VIAL IV PRN; +SCOPOLAMINE 1.5MG/72HR PATCH TRANSDERM ONE; +TAMSULOSIN 0.4 MG CAP.ER.24H PO PRN; -TAMSULOSIN 0.4 MG CAP.ER.24H PO STA; -ceFAZolin 3 GM in SODIUM CHLORIDE 0.9% 100 ML IVPB PRN; +fentaNYL (PF) 50 MCG/ML 2 ML AMP ONE
--- NOTE | 2020-11-06 06:59 | P.GSHP ---
History of Present Illness H&P Date: 11/06/20 CHIEF COMPLAINT: Cholecystitis HISTORY OF PRESENT ILLNESS: The patient is a 55-year-old male who presents with history of epigastric including right upper quadrant abdominal pain with cholecystitis for 1 week including intolerance to fatty foods and mild to moderate abdominal pain. Now he presents for surgical intervention. PAST MEDICAL HISTORY: Please see list PAST SURGICAL HISTORY: Please see list MEDICATIONS: Please see list ALLERGIES: Denies. SOCIAL HISTORY: No illicit drug use or recent tobacco use FAMILY HISTORY: Pertinent for gallbladder disease REVIEW OF ORGAN SYSTEMS: CONSTITUTIONAL: No reports of fevers or chills. HEENT: Denies any troubles with the vision or hearing. ENDOCRINE: No reports of hypothyroidism. No diabetes. RESPIRATORY: No recent pneumonias. CARDIOVASCULAR: Denies chest pain or palpitations GI: No blood in stools or constipation. MUSCULOSKELETAL: Has occasional joint pain including back pain. NEURO: No seizure disorders or headaches. No recent stroke. PSYCH: No depression or suicidal ideation. HEMATOLOGIC: No personal or family history of DVTs or pulmonary emboli. PHYSICAL EXAM: VITAL SIGNS: Afebrile vital signs stable GENERAL: Well-developed pleasant male in no acute distress. HEENT: No scleral icterus. Extraocular movements grossly intact. Moist buccal mucosa. NECK: Supple without lymphadenopathy. CHEST: Unlabored respirations. Equal bilateral excursions. CARDIOVASCULAR: Regular rate regular rhythm rhythm. Distal 2+ pulses. ABDOMEN: Soft, nondistended. Tender along the epigastrium and right upper quadrant. MUSCULOSKELETAL: No clubbing, cyanosis, or edema. NEURO : No focal or lateralizing signs. Cranial nerves II-12 within normal limits. PSYCH: Alert and oriented to person, place and time. SKIN: Well perfused. Good skin turgor. ASSESSMENT: 1. Epigastric and right upper quadrant abdominal pain 2. Chronic cholecystitis PLAN: 1. Will need a robotic cholecystectomy possible open. Benefits and risks were described. 2. Heparin for DVT prophylaxis 5000 units. 3. Antibiotic prophylaxis. Past Medical History Past Medical History: Osteoarthritis (OA) Additional Past Medical History / Comment(s): hx of htn,sleep apnea per pt no medication or cpap needed since weight loss History of Any Multi-Drug Resistant Organisms: None Reported Past Surgical History: Bariatric Surgery, Hernia Repair, Joint Replacement, Orthopedic Surgery Additional Past Surgical History / Comment(s): rt shoulder surgery, BILATERAL EYE SURGERY; right knee replacement surgery 04/30/2020 sleeve gastrectomy 08-05-20 Past Anesthesia/Blood Transfusion Reactions: No Reported Reaction Smoking Status: Never smoker - Past Family History Father Family Medical History: Cancer Mother Family Medical History: Cancer Sister(s) Family Medical History: Cancer Medications and Allergies Home Medications Medication Instructions Recorded Confirmed Type EPINEPHrine (Auto Inject) [Epipen] 0.3 mg IM ONCE PRN 11/30/17 11/04/20 History Allergies Allergy/AdvReac Type Severity Reaction Status Date / Time bee venom protein (honey bee) Allergy Anaphylaxis Verified 11/04/20 15:58
[2020-11-06 10:01] VITALS: TEMP 97
[2020-11-06 10:11] VITALS: RESP 16
--- NOTE | 2020-11-06 10:20 | P.PN ---
Progress Note - Text Progress Note Date: 11/06/20 Modified by anesthesia that during induction of anesthesia, patient's heart rate dropped to 30s. Additional medications including atropine given with heart rates under 60s. In light of surgery which required pneumoperitoneum, heart rate will likely continue to be bradycardic to less than 50s and 40s. Upon discussion with [facility], surgical procedure aborted prior to intubation. Patient sent to phase 1 recovery. Immediate cardiology consultation to be obtained for further assessment for bradycardia.
--- NOTE | 2020-11-06 10:58 | P.PN ---
Subjective Progress Note Date: 11/06/20 CHIEF COMPLAINT: Acute cholecystitis HISTORY OF PRESENT ILLNESS: The patient is a 55-year-old male who was admitted to undergo cholecystectomy. During induction, heart rate dropped to 30s. Despite multiple medications to improve his heart rate remained bradycardic. As result his procedure was aborted during induction. In the recovery, heart rate now elevated to 70s. Cardiology consultation is pending. He does report persistent right upper quadrant abdominal pain. ROS: No reports of nausea and vomiting. No bowel movements. No fevers or chills. No new chest pain. No productive sputum PHYSICAL EXAM: VITAL SIGNS: Reviewed CONSTITUTIONAL: Well developed and in no acute distress. EYES: Conjuctivae without sclera icterus. Extraocular movements grossly intact. HEAD, EARS, NOSE, THROAT: Moist buccal mucosa. Head is atraumatic, normocephalic. Hears conversational speech. No nasal drainage. NECK: Supple. No thyroidomegaly. RESPIRATORY: Non-labored respirations and equal bilateral excursions. CARDIOVASCULAR: Palpable 2+ radial pulses. Regular rate. Regular rhythm. Heart rate improved to 70s. ABDOMEN: Soft tender right upper quadrant. MUSCULOSKELETAL: No gross deformity of the lower extremities noted. No clubbing. No cyanosis. SKIN: Good skin turgor. Well perfused. NEUROLOGIC: Cranial nerves II through XII grossly intact. No focal or lateralizing signs. PSYCH: Appropriate affect. Alert and oriented to person, place and time. ASSESSMENT: 1. Severe bradycardia during induction 2. Acute cholecystitis PLAN: 1. Stat CMP, CBC, TSH, magnesium being ordered for severe bradycardia 2. Stat cardiology pending 3. Stat echo 4. Procedure deferred until cleared by cardiology. Objective - Vital Signs Vital signs: Vital Signs Temp 97 F L 11/06/20 09:50 Pulse 59 L 11/06/20 10:45 Resp 16 11/06/20 10:45 BP 163/89 11/06/20 10:45 Pulse Ox 95 11/06/20 10:45 Intake & Output 11/05/20 11/06/20 11/06/20 18:59 06:59 18:59 Intake Total 300 Output Total 250 Balance 50 Weight 101 kg Intake: IV 300 Output: Urine 250
[2020-11-06 12:03] LABS: ALT 19 U/L (4-49); AST 23 U/L (17-59); African American GFR (CKD) >90 (>60 ml/min/1.73 sqM); Albumin 3.9 g/dL (3.5-5.0); Alkaline Phosphatase 73 U/L (38-126); Anion Gap 4 mmol/L; Blood Urea Nitrogen 16 mg/dL (9-20); Calcium 9.2 mg/dL (8.4-10.2); Carbon Dioxide 29 mmol/L (22-30); Chloride 106 mmol/L (98-107); Glucose 104 mg/dL (74-99); Magnesium 2.1 mg/dL (1.6-2.3); Non-African American GFR(CKD) >90 (>60 ml/min/1.73 sqM); Potassium 4.5 mmol/L (3.5-5.1); Sodium 139 mmol/L (137-145); Total Bilirubin 0.6 mg/dL (0.2-1.3); Total Protein 6.3 g/dL (6.3-8.2)
[2020-11-06 12:28] LABS: Basophils % (A) 1 %; Eosinophils # (A) 0.1 k/uL (0-0.7); Eosinophils % (A) 1 %; HCT 48.1 % (39.0-53.0); HGB 15.8 gm/dL (13.0-17.5); Lymphocytes # (A) 0.9 k/uL (1.0-4.8); Lymphocytes % (A) 12 %; MCH 29.9 pg (25.0-35.0); MCHC 32.9 g/dL (31.0-37.0); MCV 90.8 fL (80.0-100.0); Mean Platelet Volume 7.4; Monocytes # (A) 0.3 k/uL (0-1.0); Monocytes % (A) 4 %; Neutrophils # (A) 5.7 k/uL (1.3-7.7); Neutrophils % (A) 81 %; Platelet Count 252 k/uL (150-450); RDW 14.2 % (11.5-15.5)
--- NOTE | 2020-11-06 13:15 | P.PN ---
Progress Note - Text Progress Note Date: 11/06/20 Patient was seen and evaluated by cardiology. Troponins including general labs were within normal limits. EKG confirms sinus bradycardia. Patient still reports right upper quadrant abdominal pain. Per recommendations of cardiology, outpatient stress test has been requested. Patient is not cleared to proceed with surgery. Once cleared by cardiology, we'll proceed with cholecystectomy. Findings including laboratory results and recommendations were shared with patient and family.
[2020-11-06 14:08] VITALS: BP 148/89; PULSE 49
--- NOTE | 2020-11-06 15:44 | P.CRDCN ---
History of Present Illness History of present illness: HISTORY OF PRESENTING ILLNESS This is a pleasant 55-year-old male past medical history significant for hypertension. He does not follow with a paradi operator. He follows with Dr. Gonzalez. We have been asked to see in consultation for bradycardia prior to surgery. Patient was admitted to undergo cholecystectomy. During induction, prior to intubation heart rate dropped to 30s. Despite atropine to improve his heart rate remained bradycardic. As result his procedure was aborted during induction. In the recovery, heart rate now elevated to 70s. Patient is seen and examined in recovery. Patient was not cleared by cardiology prior to procedure he was seen by his PCP and was cleared for surgery. Denies chest pain, palpitations, shortness of breath, lower extremity edema, fatigue, weakness, lightheadedness, syncope. Denies history of diabetes, stroke, ID, hyperlipidemia. Denies smoking, alcohol use, illicit drug use. Patient states he was on Bystolic 5 mg daily, Hydrochlorithiazide 25 mg daily, losartan 100 mg daily however he personally stopped taking these medications because he thought his blood pressure was fine. Laboratory data reviewed, sodium 139, potassium 4.5, creatinine 0.81, troponin negative 1, TSH within normal limits, WBC 7.0, hemoglobin 15.8, platelets 252, Vital signs blood pressure 148/89, heart rate 49, maintaining oxygen saturation is on room air, afebrile. DIAGNOSTICS EKG reveals sinus bradycardia with no acute STT wave abnormalities. Telemetry tracings indicate in recovery sinus rhythm. REVIEW OF SYSTEMS At the time of my exam: CONSTITUTIONAL: Denies fever or chills. CARDIOVASCULAR: Denies chest pain, shortness of breath, orthopnea, PND or palpitations. RESPIRATORY: Denies cough. GASTROINTESTINAL: +right sided abdominal pain, Denies diarrhea, constipation, nausea or vomiting. MUSCULOSKELETAL: Denies myalgias. NEUROLOGIC: Denies numbness, tingling, headacbe or weakness. ENDOCRINE: Denies fatigue, weight change, polydipsia or polyurina. GENITOURINARY: Denies burning, hematuria or urgency with micturation. HEMATOLOGIC: Denies history of anemia or bleeding. PHYSICAL EXAMINATION CONSTITUTIONAL: No apparent distress. HEENT: Head is normocephalic. Pupils are equal, round. Sclerae anicteric. Mucous membranes of the mouth are moist. No JVD. No carotid bruit. CHEST EXAMINATION: Lungs are clear to auscultation. No chest wall tenderness is noted on palpation or with deep breathing. HEART EXAMINATION: Regular rate and rhythm. S1, S2 heard. No murmurs, gallops or rub. ABDOMEN: Soft, nontender. Positive bowel sounds. EXTREMITIES: 2+ peripheral pulses, no lower extremity edema and no calf tenderness. SKIN: intact NEUROLOGIC EXAMINATION: Patient is awake, alert and oriented x3. ASSESSMENT -Sinus Bradycardia, unclear etiology - possibly related to Bystolic medication -Acute cholecysitis PLAN -2D echo completed -Event monitor placed on patient prior to discharge for 2 weeks of heart monitoring -Patient will follow up outpatient with Dr. Beverly for possible stress test prior to surgery for cardiac clearance Nurse Practitioner note has been reviewed, I agree with a documented findings and plan of care. Patient was seen and examined. Past Medical History Past Medical History: Osteoarthritis (OA) Additional Past Medical History / Comment(s): hx of htn,sleep apnea per pt no medication or cpap needed since weight loss History of Any Multi-Drug Resistant Organisms: None Reported Past Surgical History: Bariatric Surgery, Hernia Repair, Joint Replacement, Orthopedic Surgery Additional Past Surgical History / Comment(s): rt shoulder surgery, BILATERAL EYE SURGERY; right knee replacement surgery 04/30/2020 sleeve gastrectomy 08-05-20 Past Anesthesia/Blood Transfusion Reactions: No Reported Reaction Smoking Status: Never smoker - Past Family History Father Family Medical History: Cancer Mother Family Medical History: Cancer Sister(s) Family Medical History: Cancer Medications and Allergies Home Medications Medication Instructions Recorded Confirmed Type EPINEPHrine (Auto Inject) [Epipen] 0.3 mg IM ONCE PRN 11/30/17 11/06/20 History Amoxic-Pot Clav 875-125Mg 1 tab PO BID #10 tab 11/06/20 Rx [Augmentin 875-125] Allergies Allergy/AdvReac Type Severity Reaction Status Date / Time bee venom protein (honey bee) Allergy Anaphylaxis Verified 11/04/20 15:58 Physical Exam Vitals: Vital Signs Temp Pulse Pulse Resp BP BP Pulse Ox 11/06/20 12:17 46 L 16 133/78 96 11/06/20 12:01 45 L 16 149/89 96 11/06/20 11:44 50 L 16 142/81 96 11/06/20 11:00 55 L 16 161/87 95 11/06/20 10:45 59 L 16 163/89 95 11/06/20 10:31 75 16 148/92 95 11/06/20 10:16 67 16 143/89 95 11/06/20 10:00 66 16 139/86 95 11/06/20 09:50 97 F L 66 12 135/78 95 11/06/20 08:40 96.7 F L 54 L 16 153/86 97 Intake and Output 11/05/20 11/06/20 11/06/20 22:59 06:59 14:59 Intake Total 300 Output Total 550 Balance -250 Intake: IV 300 Output: Urine 550 Other: Weight 101 kg Results 11/06/20 11:28 11/06/20 11:28 Cardiac Enzymes 11/06/20 Range/Units 11:28 AST 23 (17-59) U/L CBC 11/06/20 Range/Units 11:28 WBC 7.0 (3.8-10.6) k/uL RBC 5.30 (4.30-5.90) m/uL Hgb 15.8 (13.0-17.5) gm/dL Hct 48.1 (39.0-53.0) % Plt Count 252 (150-450) k/uL Comprehensive Metabolic Panel 11/06/20 Range/Units 11:28 Sodium 139 (137-145) mmol/L Potassium 4.5 (3.5-5.1) mmol/L Chloride 106 (98-107) mmol/L Carbon Dioxide 29 (22-30) mmol/L BUN 16 (9-20) mg/dL Creatinine 0.81 (0.66-1.25) mg/dL Glucose 104 H (74-99) mg/dL Calcium 9.2 (8.4-10.2) mg/dL AST 23 (17-59) U/L ALT 19 (4-49) U/L Alkaline Phosphatase 73 (38-126) U/L Total Protein 6.3 (6.3-8.2) g/dL Albumin 3.9 (3.5-5.0) g/dL Current Medications Generic Name Dose Route Start Last Admin Trade Name Freq PRN Reason Stop Dose Admin Acetaminophen 1,000 mg 11/06/20 08:13 11/06/20 08:54 Acetaminophen Tab 500 Mg Tab PO 12/06/20 08:14 1,000 mg ONCE PRN Administration Painful Procedures Gabapentin 300 mg 11/06/20 08:13 11/06/20 08:54 Gabapentin 300 Mg Cap PO 12/06/20 08:14 300 mg ONCE PRN Administration Pre-Op Hydromorphone HCl 0.5 mg 11/06/20 07:00 Hydromorphone 0.5 Mg/0.5 Ml Syringe IVP 11/06/20 23:00 Q5M PRN Pain Control Cefazolin Sodium 2 gm/ Sodium 50 mls @ 100 mls/hr 11/06/20 05:00 Chloride IVPB 11/07/20 00:01 ONCE PRN pre-op Lactated Ringer's 1,000 mls @ 20 mls/hr 11/06/20 06:12 11/06/20 08:54 Lactated Ringers IV 12/06/20 06:13 300 mls .Q24H DAVID Administration Indocyanine Green 7.5 mg 11/06/20 08:13 Indocyanine Green 25 Mg Vial IV 12/06/20 08:14 ONCE PRN Pre-Op Midazolam HCl 2 mg 11/06/20 06:12 Midazolam 2 Mg/2 Ml Vial IV 11/06/20 23:00 ONCE PRN Anxiety Tamsulosin HCl 0.4 mg 11/06/20 08:13 Tamsulosin 0.4 Mg Cap.Er.24h PO 12/06/20 08:14 ONCE PRN Pre-Op Intake and Output 11/05/20 11/06/20 11/06/20 22:59 06:59 14:59 Intake Total 300 Output Total 550 Balance -250 Intake: IV 300 Output: Urine 550 Other: Weight 101 kg Patient Weight 11/07/20 06:59 Weight 101 kg 11/06/20 11:28 11/06/20 11:28
== END | disposition home or self-care (01) ==
LOC: OR 08:05
PROVIDERS: ATTEND Surgery Plastic and Reconstructive Surgery
DX: K81.1 Chronic cholecystitis (principal); K81.0 Acute cholecystitis; R00.1 Bradycardia, unspecified; Z53.8 Procedure and treatment not carried out for other reasons; M19.90 Unspecified osteoarthritis, unspecified site; I10 Essential (primary) hypertension; G47.33 Obstructive sleep apnea (adult) (pediatric); T44.7X6A Underdosing of beta-adrenoreceptor antagonists, initial encounter; T50.2X6A Underdosing of carbonic-anhydrase inhibitors, benzothiadiazides and other diuretics, initial encounter; T46.5X6A Underdosing of other antihypertensive drugs, initial encounter; K21.9 Gastro-esophageal reflux disease without esophagitis; Z91.128 Patient's intentional underdosing of medication regimen for other reason; Z91.030 Bee allergy status; Z98.84 Bariatric surgery status; Z98.890 Other specified postprocedural states; Z96.651 Presence of right artificial knee joint; Z80.9 Family history of malignant neoplasm, unspecified; Y92.9 Unspecified place or not applicable
CPT/HCPCS: 47562; 93306; 93005; 93270; 80053; 84443; 83735; 84484; 85025; J2250; J0461; J1644; J1100; J2405; J3010

== ENCOUNTER 2020-11-07 11:38 | Observation (INO) | payer BC ==
[2020-11-07] MEDS ORDERED: SODIUM CHLORIDE 0.9% 1,000 ML IV ONE (12:12)
[2020-11-07 12:42] LABS: Basophils # (A) 0.1 k/uL (0-0.2); Basophils % (A) 1 %; Eosinophils # (A) 0.2 k/uL (0-0.7); Eosinophils % (A) 2 %; HCT 44.2 % (39.0-53.0); HGB 15.2 gm/dL (13.0-17.5); Lymphocytes % (A) 28 %; MCH 30.8 pg (25.0-35.0); MCHC 34.4 g/dL (31.0-37.0); MCV 89.5 fL (80.0-100.0); Mean Platelet Volume 7.3; Monocytes # (A) 0.5 k/uL (0-1.0); Monocytes % (A) 6 %; Neutrophils # (A) 4.4 k/uL (1.3-7.7); Neutrophils % (A) 60 %; Platelet Count 248 k/uL (150-450); RBC 4.94 m/uL (4.30-5.90); RDW 13.8 % (11.5-15.5); WBC 7.2 k/uL (3.8-10.6)
[2020-11-07 12:52] LABS: AST 24 U/L (17-59); African American GFR (CKD) >90 (>60 ml/min/1.73 sqM); Albumin 3.9 g/dL (3.5-5.0); Alkaline Phosphatase 69 U/L (38-126); Amylase 54 U/L (30-110); Anion Gap 8 mmol/L; Blood Urea Nitrogen 16 mg/dL (9-20); Calcium 8.9 mg/dL (8.4-10.2); Carbon Dioxide 26 mmol/L (22-30); Chloride 105 mmol/L (98-107); Glucose 88 mg/dL (74-99); Lipase 44 U/L (23-300); Non-African American GFR(CKD) >90 (>60 ml/min/1.73 sqM); Potassium 3.6 mmol/L (3.5-5.1); Sodium 139 mmol/L (137-145); Total Bilirubin 0.6 mg/dL (0.2-1.3); Total Protein 6.3 g/dL (6.3-8.2)
[2020-11-07 12:54] LABS: ALT 18 U/L (4-49)
--- NOTE | 2020-11-07 13:30 | US ---
EXAMINATION TYPE: US liver DATE OF EXAM: 11/07/2020 COMPARISON: NONE CLINICAL HISTORY: pain. EXAM MEASUREMENTS: Liver Length: 13.6 cm Gallbladder Wall: 0.4 cm CBD: 0.3 cm Right Kidney: 11.9 x 5.8 x 4.7 cm Pancreas: Mostly obscured by bowel gas Liver: wnl Gallbladder: wall slightly thickened Evidence for sonographic Cardozo's sign: no CBD: wnl Right Kidney: wnl IMPRESSION: Mild gallbladder wall thickening without evidence of cholelithiasis.
--- NOTE | 2020-11-07 14:14 | ED ---
Abdominal Pain HPI - General Chief Complaint: Abdominal Pain Stated Complaint: Sent by pcpEMILIE pain Time Seen by Provider: 11/07/20 12:01 Source: patient, RN notes reviewed Mode of arrival: ambulatory Limitations: no limitations - History of Present Illness Initial Comments: This a 55-year-old male presents emergency Department chief complaint of abdomi nal pain. Patient was scheduled for cholecystectomy yesterday by Dr. Hamilton. Patient states that he had an episode of bradycardia on operating table patient was discharged home with a monitor. Patient states that he cannot tolerate the pain. Patient's medicines slight nausea. Patient states that he contacted his surgeon recommended to come back to the emergency department. - Related Data Home Medications Medication Instructions Recorded Confirmed EPINEPHrine (Auto Inject) [Epipen] 0.3 mg IM ONCE PRN 11/30/17 11/06/20 Previous Rx's Medication Instructions Recorded Amoxic-Pot Clav 875-125Mg 1 tab PO BID #10 tab 11/06/20 [Augmentin 875-125] Allergies Allergy/AdvReac Type Severity Reaction Status Date / Time bee venom protein (honey bee) Allergy Anaphylaxis Verified 11/07/20 11:50 Review of Systems ROS Statement: Those systems with pertinent positive or pertinent negative responses have been documented in the HPI. ROS Other: All systems not noted in ROS Statement are negative. Past Medical History Past Medical History: Osteoarthritis (OA) Additional Past Medical History / Comment(s): hx of htn,sleep apnea per pt no medication or cpap needed since weight loss History of Any Multi-Drug Resistant Organisms: None Reported Past Surgical History: Bariatric Surgery, Hernia Repair, Joint Replacement, Orthopedic Surgery Additional Past Surgical History / Comment(s): rt shoulder surgery, BILATERAL EYE SURGERY; right knee replacement surgery 04/30/2020 sleeve gastrectomy 08-05-20 Past Anesthesia/Blood Transfusion Reactions: No Reported Reaction Past Psychological History: No Psychological Hx Reported Smoking Status: Never smoker Past Alcohol Use History: None Reported Past Drug Use History: None Reported - Past Family History Father Family Medical History: Cancer Mother Family Medical History: Cancer Sister(s) Family Medical History: Cancer General Exam Limitations: no limitations General appearance: alert, in no apparent distress Head exam: Present: atraumatic, normocephalic, normal inspection Eye exam: Present: normal appearance, PERRL, EOMI. Absent: scleral icterus, conjunctival injection, periorbital swelling ENT exam: Present: normal exam, normal oropharynx, mucous membranes moist Neck exam: Present: normal inspection, full ROM. Absent: tenderness, meningismus, lymphadenopathy Respiratory exam: Present: normal lung sounds bilaterally. Absent: respiratory distress, wheezes, rales, rhonchi, stridor Cardiovascular Exam: Present: regular rate, normal rhythm, normal heart sounds. Absent: systolic murmur, diastolic murmur, rubs, gallop, clicks GI/Abdominal exam: Present: soft, tenderness (Mild to moderate right upper), normal bowel sounds. Absent: distended, guarding, rebound, rigid Back exam: Absent: CVA tenderness (R), CVA tenderness (L) Course Vital Signs 11/07/20 11/07/20 11/07/20 11:50 13:00 14:00 Temperature 97.8 F Pulse Rate 55 L 47 L 48 L Respiratory 18 16 20 Rate Blood Pressure 149/81 146/88 134/78 O2 Sat by Pulse 98 98 99 Oximetry 11/07/20 11/07/20 14:59 15:01 Temperature Pulse Rate 49 L 47 L Respiratory 20 20 Rate Blood Pressure 137/65 154/80 O2 Sat by Pulse 99 100 Oximetry Medical Decision Making - Medical Decision Making 55-year-old presents for abdominal pain. Case discussed with Dr. Hamilton who recommends patient be admitted with cardiology clearance. - Lab Data Result diagrams: 11/07/20 12:34 11/07/20 12:34 Lab Results 11/07/20 11/07/20 11/07/20 Range/Units 12:34 12:34 12:34 WBC 7.2 (3.8-10.6) k/uL RBC 4.94 (4.30-5.90) m/uL Hgb 15.2 (13.0-17.5) gm/dL Hct 44.2 (39.0-53.0) % MCV 89.5 (80.0-100.0) fL MCH 30.8 (25.0-35.0) pg MCHC 34.4 (31.0-37.0) g/dL RDW 13.8 (11.5-15.5) % Plt Count 248 (150-450) k/uL MPV 7.3 Neutrophils % 60 % Lymphocytes % 28 % Monocytes % 6 % Eosinophils % 2 % Basophils % 1 % Neutrophils # 4.4 (1.3-7.7) k/uL Lymphocytes # 2.0 (1.0-4.8) k/uL Monocytes # 0.5 (0-1.0) k/uL Eosinophils # 0.2 (0-0.7) k/uL Basophils # 0.1 (0-0.2) k/uL Sodium 139 (137-145) mmol/L Potassium 3.6 (3.5-5.1) mmol/L Chloride 105 (98-107) mmol/L Carbon Dioxide 26 (22-30) mmol/L Anion Gap 8 mmol/L BUN 16 (9-20) mg/dL Creatinine 0.75 (0.66-1.25) mg/dL Est GFR (CKD-EPI)AfAm >90 (>60 ml/min/1.73 sqM) Est GFR (CKD-EPI)NonAf >90 (>60 ml/min/1.73 sqM) Glucose 88 (74-99) mg/dL Plasma Lactic Acid Daniel 0.9 (0.7-2.0) mmol/L Calcium 8.9 (8.4-10.2) mg/dL Total Bilirubin 0.6 (0.2-1.3) mg/dL AST 24 (17-59) U/L ALT 18 (4-49) U/L Alkaline Phosphatase 69 (38-126) U/L Troponin I (0.000-0.034) ng/mL Total Protein 6.3 (6.3-8.2) g/dL Albumin 3.9 (3.5-5.0) g/dL Amylase 54 (30-110) U/L Lipase 44 (23-300) U/L 11/07/ Range/Units 12:34 WBC (3.8-10.6) k/uL RBC (4.30-5.90) m/uL Hgb (13.0-17.5) gm/dL Hct (39.0-53.0) % MCV (80.0-100.0) fL MCH (25.0-35.0) pg MCHC (31.0-37.0) g/dL RDW (11.5-15.5) % Plt Count (150-450) k/uL MPV Neutrophils % % Lymphocytes % % Monocytes % % Eosinophils % % Basophils % % Neutrophils # (1.3-7.7) k/uL Lymphocytes # (1.0-4.8) k/uL Monocytes # (0-1.0) k/uL Eosinophils # (0-0.7) k/uL Basophils # (0-0.2) k/uL Sodium (137-145) mmol/L Potassium (3.5-5.1) mmol/L Chloride (98-107) mmol/L Carbon Dioxide (22-30) mmol/L Anion Gap mmol/L BUN (9-20) mg/dL Creatinine (0.66-1.25) mg/dL Est GFR (CKD-EPI)AfAm (>60 ml/min/1.73 sqM) Est GFR (CKD-EPI)NonAf (>60 ml/min/1.73 sqM) Glucose (74-99) mg/dL Plasma Lactic Acid Daniel (0.7-2.0) mmol/L Calcium (8.4-10.2) mg/dL Total Bilirubin (0.2-1.3) mg/dL AST (17-59) U/L ALT (4-49) U/L Alkaline Phosphatase (38-126) U/L Troponin I <0.012 (0.000-0.034) ng/mL Total Protein (6.3-8.2) g/dL Albumin (3.5-5.0) g/dL Amylase (30-110) U/L Lipase (23-300) U/L - EKG Data -: EKG Interpreted by Mt EKG Comments: EKG performed at 12:40 sinus bradycardia with a rate of 46 AL 172 QRS 96 QT/QTC 442/386- Disposition Clinical Impression: Abdominal pain, Cholecystitis, Bradycardia Disposition: ADMITTED IP TO THIS HOSP Condition: Fair Referrals: Geremias Gonzalez MD [Primary Care Provider] - 1-2 days
[2020-11-07] MEDS ORDERED: ONDANSETRON 4 MG/2 ML VIAL IVP PRN (15:06)
[2020-11-07] MEDS ORDERED: NALOXONE 0.4 MG/ML 1 ML VIAL IV PRN (15:06)
[2020-11-07] MEDS ORDERED: HYDROcodone/APAP 5-325MG 1 EACH TAB PO PRN (15:06)
[2020-11-07 15:14] LABS: Appearance,Urine Clear (Clear); Bilirubin,Urine Negative (Negative); Blood,Urine Negative (Negative); Color,Urine Yellow; Glucose,Urine (UA) Negative (Negative); Ketones,Urine Negative (Negative); Leukocyte Esterase,Urine Negative (Negative); Nitrite,Urine Negative (Negative); Protein,Urine Negative (Negative); Specific Gravity,Urine 1.013 (1.001-1.035); Urobilinogen,Urine <2.0 mg/dL (<2.0)
[2020-11-07] MEDS ORDERED: PIPERACILLIN-TAZOBACTAM 3.375 GM in SODIUM CHLORIDE 0.9% 100 ML IVPB STA (15:32)
--- NOTE | 2020-11-07 15:57 | P.GSHP ---
History of Present Illness H&P Date: 11/07/20 CHIEF COMPLAINT: Right upper quadrant abdominal pain HISTORY OF PRESENT ILLNESS: Fabricio Ortiz is a 55-year-old male who presents with moderate to severe right upper quadrant abdominal pain with cholecystitis. Yesterday, patient was to undergo his cholecystectomy but had new severe bradycardia where his procedure was aborted. Cardiology consultation was obtained and he was placed on Holter monitor. Additionally, he was discharged home with low-fat diet and antibiotics for cholecystitis. He returned to the emergency room with moderate to severe right upper quadrant abdominal pain unrel ieved by home medications. He has been avoiding eating food. He still has his Holter monitor. In the emergency room, heart rate still in the 40s to 50s. He is not on any antihypertensive medications. his is at bedside and also reports that the patient had independently discontinued his losartan, nebivolol, hydrochlorothiazide in the past few weeks as he reports having normal blood pressure at home. his surgical history significant for recent sleeve gastrectomy more than 3-4 months ago. He has lost 51 pounds, BMI 32.7. At height of 5 feet 7.5 inches, ideal body weight is 158 pounds. His highest weight was 266 pounds, BMI 41.0. He is 107 pounds overweight. PAST MEDICAL HISTORY: 1. Morbid obesity due to excess calories 2. Body mass index of 41.0 3. Osteoarthritis of the knees. 4. Obstructive sleep apnea 5. Hypertensive heart disease PAST SURGICAL HISTORY: 1. Ventral hernia repair 2. Right shoulder surgery 3. Bilateral eye surgeries HOME MEDICATIONS: Home Medications Medication Instructions Recorded Confirmed EPINEPHrine (Auto Inject) [Epipen] 0.3 mg IM ONCE PRN 11/30/17 06/08/20 Losartan Potassium 100 mg PO QAM 11/30/17 06/08/20 Nebivolol [Bystolic] 5 mg PO QAM 11/30/17 06/08/20 hydroCHLOROthiazide [Hydrodiuril] 25 mg PO QAM 11/30/17 06/08/20 Previous Rx's Medication Instructions Recorded Omeprazole [PriLOSEC] 40 mg PO DAILY #14 cap 03/18/20 ALLERGIES: Allergies Allergy/AdvReac Type Severity Reaction Status Date / Time bee venom protein (honey bee) Allergy Anaphylaxis Verified 06/08/20 15:18 SOCIAL HISTORY: No past tobacco use. FAMILY HISTORY: No family history of ulcerative colitis disease or Crohn's di sease. Family history of morbid obesity. No lupus in the family. No reports of stomach or esophageal cancer. REVIEW OF ORGAN SYSTEMS: CONSTITUTIONAL: At height of 5 feet 7.5 inches, ideal body weight is 158 pounds. His highest weight was 266 pounds, BMI 41.0. He is 107 pounds overweight. HEENT: Denies any active troubles with vision or hearing. ENDOCRINE: No diabetes. No hypothyroidism. CARDIOVASCULAR: New recent severe bradycardia now with Holter monitor. Echo completed yesterday. RESPIRATORY: Has daytime somnolence. He has obstructive sleep apnea. GASTROINTESTINAL: Denies any bright red blood per rectum. No diarrhea. No constipation. MUSCULOSKELETAL: Has lower back pain and joint pain. Has osteoarthritis of the knees. NEURO: No headaches. No seizure disorders. PSYCH: No depression. No suicidal ideation. RHEUMATOLOGIC: No lupus. No rheumatoid arthritis. HEMATOLOGIC: Denies any abnormal bleeding or bruising. No personal history of DVTs. SKIN: No rash. No skin cancer. PHYSICAL EXAM: VITAL SIGNS: Height 5 foot 7.5 inches, weight 214 pounds. BMI 32.7 GENERAL: Well-developed in no acute distress. HEENT: No scleral icterus. Extraocular movements grossly intact. Hears conversational speech. No nasal drainage. NECK: Supple without lymphadenopathy. CHEST: Nonlabored respirations with equal bilateral excursions. CARDIOVASCULAR: bradycardic. Heart rate 40s to 50s on monitor. ABDOMEN: Tender right upper quadrant. Nondistended. MUSCULOSKELETAL: No clubbing, cyanosis. NEURO: No focal or lateralizing signs. Cranial nerves 2 through 12 grossly within normal limits. PSYCH: Appropriate affect. Alert and oriented to person, place and time. SKIN: Good skin turgor. Well perfused. STUDIES: Liver ultrasound independently reviewed demonstrating thickened gallbladder wall. No large gallstones identified. LABS: Reviewed. WBC normal. ASSESSMENT: 1. Right upper quadrant abdominal pain with cholecystitis 2. Bradycardia, new 3. status post sleeve gastrectomy for morbid obesity, BMI 41.0, initial 4. Osteoarthritis of the knees. 5. Obstructive sleep apnea, improved 6. Hypertensive heart disease 7. Failed outpatient management for cholecystitis PLAN: 1. He has failed outpatient management for cholecystitis. Recommend admission with IV antibiotics 2. Cardiology consultation for symptomatic bradycardia 3. Admission for failed outpatient management of cholecystitis Past Medical History Past Medical History: Osteoarthritis (OA) Additional Past Medical History / Comment(s): hx of htn,sleep apnea per pt no medication or cpap needed since weight loss History of Any Multi-Drug Resistant Organisms: None Reported Past Surgical History: Bariatric Surgery, Hernia Repair, Joint Replacement, Orthopedic Surgery Additional Past Surgical History / Comment(s): rt shoulder surgery, BILATERAL EYE SURGERY; right knee replacement surgery 04/30/2020 sleeve gastrectomy 08-05-20 Past Anesthesia/Blood Transfusion Reactions: No Reported Reaction Past Psychological History: No Psychological Hx Reported Smoking Status: Never smoker Past Alcohol Use History: None Reported Past Drug Use History: None Reported - Past Family History Father Family Medical History: Cancer Mother Family Medical History: Cancer Sister(s) Family Medical History: Cancer Medications and Allergies Home Medications Medication Instructions Recorded Confirmed Type RX: EPINEPHrine (Auto Inject) 0.3 mg IM ONCE PRN 11/30/17 11/07/20 History [Epipen] RX: Amoxic-Pot Clav 875-125Mg 1 tab PO BID #10 tab 11/06/20 11/07/20 Rx [Augmentin 875-125] Calcium Carbonate [Tums] 500 mg PO QID PRN 11/07/20 11/07/20 History Allergies Allergy/AdvReac Type Severity Reaction Status Date / Time bee venom protein (honey bee) Allergy Anaphylaxis Verified 11/07/20 15:47 Surgical - Exam Vital Signs Temp Pulse Resp BP Pulse Ox 97.8 F 55 L 18 149/81 98 11/07/20 11:50 11/07/20 11:50 11/07/20 11:50 11/07/20 11:50 11/07/20 11:50 Results - Labs 11/07/20 12:34 11/07/20 12:34 Diabetes panel 11/07/20 Range/Units 12:34 Sodium 139 (137-145) mmol/L Potassium 3.6 (3.5-5.1) mmol/L Chloride 105 (98-107) mmol/L Carbon Dioxide 26 (22-30) mmol/L BUN 16 (9-20) mg/dL Creatinine 0.75 (0.66-1.25) mg/dL Glucose 88 (74-99) mg/dL Calcium 8.9 (8.4-10.2) mg/dL AST 24 (17-59) U/L ALT 18 (4-49) U/L Alkaline Phosphatase 69 (38-126) U/L Total Protein 6.3 (6.3-8.2) g/dL Albumin 3.9 (3.5-5.0) g/dL Calcium panel 11/07/20 Range/Units 12:34 Calcium 8.9 (8.4-10.2) mg/dL Albumin 3.9 (3.5-5.0) g/dL Pituitary panel 11/07/20 Range/Units 12:34 Sodium 139 (137-145) mmol/L Potassium 3.6 (3.5-5.1) mmol/L Chloride 105 (98-107) mmol/L Carbon Dioxide 26 (22-30) mmol/L BUN 16 (9-20) mg/dL Creatinine 0.75 (0.66-1.25) mg/dL Glucose 88 (74-99) mg/dL Calcium 8.9 (8.4-10.2) mg/dL Adrenal panel 11/07/20 Range/Units 12:34 Sodium 139 (137-145) mmol/L Potassium 3.6 (3.5-5.1) mmol/L Chloride 105 (98-107) mmol/L Carbon Dioxide 26 (22-30) mmol/L BUN 16 (9-20) mg/dL Creatinine 0.75 (0.66-1.25) mg/dL Glucose 88 (74-99) mg/dL Calcium 8.9 (8.4-10.2) mg/dL Total Bilirubin 0.6 (0.2-1.3) mg/dL AST 24 (17-59) U/L ALT 18 (4-49) U/L Alkaline Phosphatase 69 (38-126) U/L Total Protein 6.3 (6.3-8.2) g/dL Albumin 3.9 (3.5-5.0) g/dL Assessment and Plan (1) Cholecystitis Current Visit: Yes Status: Acute Code(s): K81.9 - CHOLECYSTITIS, UNSPECIFIED SNOMED Code(s): 39969369 (2) Bradycardia Current Visit: Yes Status: Acute Code(s): R00.1 - BRADYCARDIA, UNSPECIFIED SNOMED Code(s): 80370243 (3) Hypertension Current Visit: No Status: Acute Code(s): I10 - ESSENTIAL (PRIMARY) HYPERTENSION SNOMED Code(s): 06963854
[2020-11-08] MEDS: PIPERACILLIN-TAZOBACTAM 3.375 GM in SODIUM CHLORIDE 0.9% 100 ML IVPB SCH ×3 (06:46→17:03)
--- NOTE | 2020-11-08 11:58 | P.CRDCN ---
<Sophie Scanlon - Last Filed: 11/08/20 11:41> History of Present Illness Consult date: 11/08/20 History of present illness: The patient is a 55-year-old male with past medical history of morbid obesity status post bariatric surgery, hypertension, obstructive sleep apnea, who attempted to undergo cholecystectomy with Dr. Stroud earlier this week. When the patient was placed on the table he was found to be bradycardic, therefore the procedure was aborted. He was discharged home with Holter monitor, however the patient returned to the emergency room with abdominal discomfort. He states he is unable to consume any food without vomiting. He denies any chest pain or chest pressure. No palpitations, dyspnea, orthopnea, dizziness, or lightheadedness. The patient states even prior to needing his gallbladder removed he endorsed a good energy level and never felt dizzy or lightheaded. The patient was interviewed and examined sitting comfortably in a chair in the emergency department. Currently on telemetry his heart rate is in the high 60s to low 70s. His blood pressure is reasonable, although he is quite agitated about having to cancel his surgery. The patient states he did stop all of his blood pressure medication last week and has been monitoring it at home. He states his been running in the 120s systolic. He previously was on by bystolic and losartan, but again these have been on hold for 1 week. He states he has had a 60 pound weight loss since his bariatric surgery in July. DIAGNOSTICS: EKG shows sinus bradycardia with heart rate in the 40s Telemetry readings show heart rate in the 60s to 70s Vital signs show blood pressure of 148/96, temperature 97.4F, respiratory rate 18, SpO2 95% on room air Laboratory data shows WBC 7.2, he hemoglobin 15.2, platelet 248, sodium 139, potassium 3.6, BUN 16, creatinine 0.75, ALT ST 24, ALT 18, troponin less than 0.012, amylase 54, lipase 44. TSH was not drawn PAST MEDICAL HISTORY: Morbid obesity, bariatric surgery, hypertension, sleep apnea REVIEW OF SYSTEMS: No fever or chills. No cough or expectoration. No diaphoresis. Patient denies headache, dizziness, blurred vision, double vision. Positive for nausea and vomiting. Positive for abdominal discomfort No hematochezia. No hematemesis. Denies any black stools or blood in his stools. Denies dysuria or hematuria. No muscle weakness or numbness. The chest pain or chest pressure. No dyspnea, orthopnea. No palpitations. No dizziness or lightheadedness. PHYSICAL EXAMINATION: This is a 55-year-old male in no apparent distress at the time of my examination. HEENT: Head is atraumatic, normocephalic. Pupils are equal, round. Sclerae anicteric. Conjunctivae are clear. Mucous membranes of the mouth are moist. Neck is supple. There is no jugular venous distention. No carotid bruit is heard. CHEST EXAMINATION: Lungs are clear to auscultation. No chest wall tenderness is noted on palpation or with deep breathing. HEART EXAMINATION: Heart regular rate and rhythm. S1, S2 heard. No murmurs, gallops or rub. ABDOMEN: Soft, nontender. Bowel sounds are heard. No organomegaly noted. EXTREMITIES: 2+ peripheral pulses with no evidence of peripheral edema and no calf tenderness noted. NEUROLOGIC EXAMINATION: Patient is awake, alert and oriented x3. FINAL ASSESSMENT AND PLAN: Sinus bradycardia, worsened with anesthesia Sleep apnea, uses CPAP at night Morbid obesity, status post bariatric surgery Cholecystitis, surgery pending PLAN: Check TSH level Nonfasting lipid profile for future evaluation Patient is cleared to proceed with surgery as indicated. Suggest the use of vagolytics to increase heart rate. Suggested medications include IV dopamine, IV atropine, or robinul; or as directed by anesthesia Patient will follow-up in the office in 2-3 weeks for blood pressure management The patient has been seen and evaluated. Plan of care has been reviewed and agreed upon by Dr Cota. Past Medical History Past Medical History: Osteoarthritis (OA) Additional Past Medical History / Comment(s): hx of htn,sleep apnea per pt no medication or cpap needed since weight loss History of Any Multi-Drug Resistant Organisms: None Reported Past Surgical History: Bariatric Surgery, Hernia Repair, Joint Replacement, Orthopedic Surgery Additional Past Surgical History / Comment(s): rt shoulder surgery, BILATERAL EYE SURGERY; right knee replacement surgery 04/30/2020 sleeve gastrectomy 08-05-20 Past Anesthesia/Blood Transfusion Reactions: No Reported Reaction Past Psychological History: No Psychological Hx Reported Smoking Status: Never smoker Past Alcohol Use History: None Reported Past Drug Use History: None Reported - Past Family History Father Family Medical History: Cancer Mother Family Medical History: Cancer Sister(s) Family Medical History: Cancer Medications and Allergies Home Medications Medication Instructions Recorded Confirmed Type EPINEPHrine (Auto Inject) [Epipen] 0.3 mg IM ONCE PRN 11/30/17 11/07/20 History Amoxic-Pot Clav 875-125Mg 1 tab PO BID #10 tab 11/06/20 11/07/20 Rx [Augmentin 875-125] Calcium Carbonate [Tums] 500 mg PO QID PRN 11/07/20 11/07/20 History Allergies Allergy/AdvReac Type Severity Reaction Status Date / Time bee venom protein (honey bee) Allergy Anaphylaxis Verified 11/07/20 15:47 Physical Exam Vitals: Vital Signs Temp Pulse Resp BP Pulse Ox 11/08/20 11:33 97.4 F L 55 L 18 96 11/08/20 06:50 97.4 F L 50 L 18 148/96 95 11/08/20 02:00 44 L 20 98 11/07/20 22:00 45 L 11/07/20 20:00 98.2 F 42 L 20 152/82 96 11/07/20 18:00 50 L 20 148/65 99 11/07/20 16:00 56 L 20 155/80 99 11/07/20 15:01 47 L 20 154/80 100 11/07/20 14:59 49 L 20 137/65 99 11/07/20 14:00 48 L 20 134/78 99 11/07/20 13:00 47 L 16 146/88 98 11/07/20 11:50 97.8 F 55 L 18 149/81 98 Results 11/07/20 12:34 11/07/20 12:34 Cardiac Enzymes 11/07/20 11/07/20 Range/Units 12:34 12:34 AST 24 (17-59) U/L Troponin I <0.012 (0.000-0.034) ng/mL CBC 11/07/20 Range/Units 12:34 WBC 7.2 (3.8-10.6) k/uL RBC 4.94 (4.30-5.90) m/uL Hgb 15.2 (13.0-17.5) gm/dL Hct 44.2 (39.0-53.0) % Plt Count 248 (150-450) k/uL Comprehensive Metabolic Panel 11/07/20 Range/Units 12:34 Sodium 139 (137-145) mmol/L Potassium 3.6 (3.5-5.1) mmol/L Chloride 105 (98-107) mmol/L Carbon Dioxide 26 (22-30) mmol/L BUN 16 (9-20) mg/dL Creatinine 0.75 (0.66-1.25) mg/dL Glucose 88 (74-99) mg/dL Calcium 8.9 (8.4-10.2) mg/dL AST 24 (17-59) U/L ALT 18 (4-49) U/L Alkaline Phosphatase 69 (38-126) U/L Total Protein 6.3 (6.3-8.2) g/dL Albumin 3.9 (3.5-5.0) g/dL Current Medications Generic Name Dose Route Start Last Admin Trade Name Freq PRN Reason Stop Dose Admin Hydrocodone Bitart/Acetaminophen 1 each 11/07/20 15:06 Hydrocodone/Apap 5-325mg 1 Each Tab PO Q4HR PRN Moderate Pain Hydromorphone HCl 0.5 mg 11/07/20 15:06 Hydromorphone 0.5 Mg/0.5 Ml Syringe IVP Q3HR PRN Severe Pain Piperacillin Sod/Tazobactam 100 mls @ 25 mls/hr 11/08/20 00:00 11/08/20 11:38 Sod 3.375 gm/ Sodium Chloride IVPB 25 mls/hr Q8HR DAVID Administration Naloxone HCl 0.2 mg 11/07/20 15:06 Naloxone 0.4 Mg/Ml 1 Ml Vial IV Q2M PRN Opioid Reversal Ondansetron HCl 4 mg 11/07/20 15:06 Ondansetron 4 Mg/2 Ml Vial IVP Q8HR PRN Nausea And Vomiting 11/07/20 12:34 11/07/20 12:34 <Apolinar Cota - Last Filed: 11/08/20 13:29> History of Present Illness History of present illness: 55-year-old male patient with bradycardia. He has a history of hypertension. He has lost a significant amount of weight almost 60 pounds following bariatric surgery. He has no exercise intolerance no dizziness no loss of consciousness no chest discomfort and no recent cardiac symptoms at all His surgery was aborted on account of sinus bradycardia Recommend The patient is experiencing abdominal discomfort every time he eats He may proceed with surgery It is expected that he will become bradycardic again No beta blockers May start using low dose, renal dose dopamine prior to induction of anesthesia Vagolytic be used during induction of anesthesia IV atropine may be used in addition There is no reason to withhold surgery from a cardiac standpoint Physical Exam Vitals: Vital Signs Temp Pulse Resp BP Pulse Ox 11/08/20 11:33 97.4 F L 55 L 18 96 11/08/20 06:50 97.4 F L 50 L 18 148/96 95 11/08/20 02:00 44 L 20 98 11/07/20 22:00 45 L 11/07/20 20:00 98.2 F 42 L 20 152/82 96 11/07/20 18:00 50 L 20 148/65 99 11/07/20 16:00 56 L 20 155/80 99 11/07/20 15:01 47 L 20 154/80 100 11/07/20 14:59 49 L 20 137/65 99 11/07/20 14:00 48 L 20 134/78 99 Results 11/07/20 12:34 11/07/20 12:34 Lipids 11/07/20 Range/Units 12:34 Triglycerides 120 (<150) mg/dL Cholesterol 156 (<200) mg/dL HDL Cholesterol 38 L (40-60) mg/dL Current Medications Generic Name Dose Route Start Last Admin Trade Name Freq PRN Reason Stop Dose Admin Hydrocodone Bitart/Acetaminophen 1 each 11/07/20 15:06 Hydrocodone/Apap 5-325mg 1 Each Tab PO Q4HR PRN Moderate Pain Hydromorphone HCl 0.5 mg 11/07/20 15:06 Hydromorphone 0.5 Mg/0.5 Ml Syringe IVP Q3HR PRN Severe Pain Piperacillin Sod/Tazobactam 100 mls @ 25 mls/hr 11/08/20 00:00 11/08/20 11:38 Sod 3.375 gm/ Sodium Chloride IVPB 25 mls/hr Q8HR DAVID Administration Naloxone HCl 0.2 mg 11/07/20 15:06 Naloxone 0.4 Mg/Ml 1 Ml Vial IV Q2M PRN Opioid Reversal Ondansetron HCl 4 mg 11/07/20 15:06 Ondansetron 4 Mg/2 Ml Vial IVP Q8HR PRN Nausea And Vomiting 11/07/20 12:34 11/07/20 12:34
[2020-11-08 13:12] LABS: Cholesterol 156 mg/dL (<200); HDL Cholesterol 38 mg/dL (40-60); LDL Cholesterol,Calculated 94 mg/dL (0-99); Triglycerides 120 mg/dL (<150)
--- NOTE | 2020-11-08 14:56 | P.PN ---
Subjective Progress Note Date: 11/08/20 CHIEF COMPLAINT: Right upper quadrant abdominal pain HISTORY OF PRESENT ILLNESS: Fabricio Ortiz is a 55-year-old male who presents with moderate to severe right upper quadrant abdominal pain with cholecystitis. He has been seen by cardiology and now cleared for surgery At height of 5 feet 7.5 inches, ideal body weight is 158 pounds. His highest weight was 266 pounds, BMI 41.0. He is 107 pounds overweight. REVIEW OF ORGAN SYSTEMS: PHYSICAL EXAM: GENERAL: Well-developed in no acute distress. HEENT: No scleral icterus. Extraocular movements grossly intact. Hears conversational speech. No nasal drainage. NECK: Supple without lymphadenopathy. CHEST: Nonlabored respirations with equal bilateral excursions. CARDIOVASCULAR: bradycardic. Heart rate 40s to 50s on monitor. ABDOMEN: Tender right upper quadrant. Nondistended. MUSCULOSKELETAL: No clubbing, cyanosis. NEURO: No focal or lateralizing signs. Cranial nerves 2 through 12 grossly within normal limits. PSYCH: Appropriate affect. Alert and oriented to person, place and time. SKIN: Good skin turgor. Well perfused. LABS: Reviewed. WBC normal. ASSESSMENT: 1. Right upper quadrant abdominal pain with cholecystitis 2. Bradycardia, new 3. status post sleeve gastrectomy for morbid obesity, BMI 41.0, initial 4. Osteoarthritis of the knees. 5. Obstructive sleep apnea, improved 6. Hypertensive heart disease 7. Failed outpatient management for cholecystitis PLAN: 1. Will proceed with cholecystectomy for which he is high risk Objective - Vital Signs Vital signs: Vital Signs Temp 97.4 F L 11/08/20 11:33 Pulse 55 L 11/08/20 11:33 Resp 18 11/08/20 11:33 BP 148/96 11/08/20 06:50 Pulse Ox 96 11/08/20 11:33 Intake & Output 11/07/20 11/08/20 11/08/20 18:59 06:59 18:59 Weight 97.522 kg - Labs CBC & Chem 7: 11/07/20 12:34 11/07/20 12:34 Assessment and Plan (1) Cholecystitis Current Visit: Yes Status: Acute Code(s): K81.9 - CHOLECYSTITIS, UNSPECIFIED SNOMED Code(s): 77090449 (2) Bradycardia Current Visit: Yes Status: Acute Code(s): R00.1 - BRADYCARDIA, UNSPECIFIED SNOMED Code(s): 68823788 (3) Hypertension Current Visit: No Status: Acute Code(s): I10 - ESSENTIAL (PRIMARY) HYPERTENSION SNOMED Code(s): 95511434
[2020-11-08] MEDS: HYDROmorphone 0.5 MG/0.5 ML SYRINGE IVP PRN (19:38)
[2020-11-09] MEDS: PIPERACILLIN-TAZOBACTAM 3.375 GM in SODIUM CHLORIDE 0.9% 100 ML IVPB SCH ×3 (00:42→15:15)
[2020-11-09] MEDS ORDERED: ACETAMINOPHEN TAB 500 MG TAB PO PRN (04:36)
[2020-11-09] MEDS ORDERED: INDOCYANINE GREEN 25 MG VIAL IV PRN (04:36)
[2020-11-09] MEDS ORDERED: HEPARIN SODIUM,PORCINE 5,000 UNIT/ML 1 ML VIAL SQ PRN (04:36)
[2020-11-09] MEDS: KETOROLAC 15 MG/ML 1 ML VIAL IVP SCH ×2 (05:28→13:32)
[2020-11-09] MEDS ORDERED: IV FLUID CONTINUATION 100 ML IV ONE (09:45)
[2020-11-09] MEDS ORDERED: DEXAMETHASONE SOD PHOSPHATE 4 MG/ML 1 ML VIAL IV ONE (10:10)
[2020-11-09] MEDS ORDERED: BUPIVACAINE (PF) 0.25% 30 ML VIAL SQ ONE (10:49)
[2020-11-09] MEDS ORDERED: LACTATED RINGERS 1,000 ML IV ONE ×2 (10:50→12:50)
[2020-11-09 12:10] VITALS: TEMP 96.9
--- NOTE | 2020-11-09 12:15 | P.OP ---
Date of Procedure: 11/09/20 Description of Procedure: SURGEON: KATHERINE BURCIAGA MD PREOPERATIVE DIAGNOSES: 1. Acute on chronic cholecystitis 2. Right upper quadrant abdominal pain 3. Bradycardia 4. Hypertensive heart disease 5. Status post sleeve gastrectomy POSTOPERATIVE DIAGNOSES: 1. Acute on chronic cholecystitis 2. Right upper quadrant abdominal pain 3. Bradycardia 4. Hypertensive heart disease 5. Status post sleeve gastrectomy OPERATION: Robotic-assisted da Willa Xi laparoscopic lysis of adhesions Robotic-assisted da Willa Xi laparoscopic cholecystectomy, multiport with FIREFLY ESTIMATED BLOOD LOSS: 10 mL. SPECIMENS REMOVED: Gallbladder. COMPLICATIONS: None. OPERATIVE FINDINGS: 1. Moderate scarring over entire gallbladder with peritoneal adhesions, pericholecystic with features of chronic cholecystitis 2. Abdominal adhesions to prior ventral hernia repair at the epigastrium undis turbed INDICATIONS: The patient is a 55-year-old female who presents with moderate to severe right upper quadrant abdominal pain with failed outpatient management due to acute on chronic cholecystitis. Separately, patient had a previously aborted surgery due to severe bradycardia. Cardiac cardiology consultation on his initial tap for cholecystectomy including upon this admission. Patient is d eemed clear. Robotic assisted laparoscopic approach was described. Benefits and risks of the procedure including but not limited to bleeding, infection, injury to the biliary tree was described. Informed consent was obtained. DESCRIPTION OF PROCEDURE: Patient was brought to the operating room, placed in supine position. After general induction, the abdomen had been prepped and draped in standard sterile fashion. The robotic da Willa XI system was primed. After a timeout protocol was performed, the patient had been prepped and draped in standard sterile fashion. The patient was injected with indocyanine green. A 5 mm 0 degrees laparoscopic trocar entry was performed along the left upper quadrant. The abdomen insufflated to 15 mmHg pressure which was tolerated well. Diagnostic laparoscopy demonstrated no injury to bowel viscera or mesentery. The liver surface was unremarkable. Next, two 8 mm robotic ports were placed along the right upper abdomen. The camera 8-mm port was maintained along the epigastrium. Another 8 mm port was placed along the left upper abdominal wall after exchanging the 5 mm port. Please note that the ports were placed at least 10 to 15 cm away from the target anatomy of the gallbladder. The robot was docked along the left lateral abdomen. The patient was repositioned in reverse Trendelenburg position. Using a grasper for arm 3, a grasper for arm 4, including hook cautery for arm 1, the robotic system was docked and primed as described. Instruments were interchanged by the bilingual administrative assistant including hook cautery, Bovie cautery and clip appliers. I had sat at the console. The gallbladder was scarred with peritoneal adhesions. Lysis of adhesions was performed to free the gallbladder from the surrounding tissues. Next attention was brought to the infundibulum and cystic structures. The infundibulum and cystic duct were dissected free from surrounding tissues. The cystic duct was isolated. FIREFLY was used to identify the cystic artery and cystic structures. A critical view of safety was obtained. Large PLASTIC clips were used throughout the entire case. Using a clip results technician, 2 clips were placed at the junction of the infundibulum and cystic duct. The cystic duct was divided between clips. Next, the cystic artery was similarly clipped and cauterized. Electro-Bovie cautery was used to remove the gallbladder from the hepatic fossa with minimal bile contamination. Bleeding from the cystic artery was controlled using clip appliers. The robot was undocked. I re-scrubbed into the case. Using a 10 mm Endo Catch bag via the left upper quadrant incision, the specimen was removed from the abdominal cavity. All pneumoperitoneum instruments were evacuated from the abdominal cavity. The incisions were reapproximated using 4-0 Monocryl in an interrupted subcuticular fashion. The fascia was oversewn using 0 Vicryl andDamianter Acosta. Please note along the trocar sites, local anesthetic was placed as a field block prior to insertion of all instruments. Liquid glue was applied to the skin. At the end of the procedure needle, sponge, and instrument count had been verified correct by the surgical nurse practitioner. The patient was transferred to postanesthesia care unit in stable condition. Intraoperative films were shared with the patient's family. Plan - Discharge Summary Discharge Rx Participant: No New Discharge Prescriptions: New Simethicone [Gas-X] 125 mg PO AC-TID PRN #20 capsule PRN Reason: Pain Acetaminophen Tab [Tylenol Tab] 1,000 mg PO Q6HR PRN #30 tablet PRN Reason: Pain Continue EPINEPHrine (Auto Inject) [Epipen] 0.3 mg IM ONCE PRN PRN Reason: Anaphylaxis Amoxic-Pot Clav 875-125Mg [Augmentin 875-125] 1 tab PO BID #10 tab Calcium Carbonate [Tums] 500 mg PO QID PRN PRN Reason: Gi Upset Discharge Medication List EPINEPHrine (Auto Inject) [Epipen] 0.3 mg IM ONCE PRN 11/30/17 [History] Amoxic-Pot Clav 875-125Mg [Augmentin 875-125] 1 tab PO BID #10 tab 11/06/20 [Rx] Calcium Carbonate [Tums] 500 mg PO QID PRN 11/07/20 [History] Acetaminophen Tab [Tylenol Tab] 1,000 mg PO Q6HR PRN #30 tablet 11/09/20 [Rx] Simethicone [Gas-X] 125 mg PO AC-TID PRN #20 capsule 11/09/20 [Rx] Follow up Appointment(s)/Referral(s): Apolinar Cota MD [STAFF PHYSICIAN] - 4 Weeks Geremias Gonzalez MD [Primary Care Provider] [place] [facility] [place] [place] - 11/11/20 Patient Instructions/Handouts: Laparoscopic Cholecystectomy (DC), Low Fat Diet (DC) Activity/Diet/Wound Care/Special Instructions: Recommend low-fat diet for the next 2 days. Use Gas-x for pain and gas bloat. No lifting over 10 pounds in 2 weeks until November 23. May shower. No bath tub soaks for two weeks until November 23. Diet as tolerated. Use Tylenol and ibuprofen or Aleve scheduled for the next 24-48 hours for best pain relief. Use ice along incisions for today to prevent swelling. Discharge Disposition: HOME SELF-CARE
[2020-11-09] MEDS ORDERED: ONDANSETRON 4 MG/2 ML VIAL IVP ONE (12:20)
[2020-11-09] MEDS ORDERED: HYDROmorphone 0.5 MG/0.5 ML SYRINGE IVP ONE ×4 (12:21→12:36)
[2020-11-09] MEDS ORDERED: KETOROLAC 15 MG/ML 1 ML VIAL IVP ONE (12:22)
[2020-11-09 12:24] VITALS: RESP 16
[2020-11-09] MEDS: HYDROmorphone 0.5 MG/0.5 ML SYRINGE IVP PRN (15:20)
[2020-11-09 15:42] VITALS: BP 154/89; PULSE 54
== END 2020-11-09 16:34 | disposition home or self-care (01) ==
LOC: EC 11:38 → 6NMEDSUR 15:06
PROVIDERS: ADMIT Surgery Plastic and Reconstructive Surgery; ATTEND Surgery Plastic and Reconstructive Surgery
DX: K80.12 Calculus of gallbladder with acute and chronic cholecystitis without obstruction (principal); K66.0 Peritoneal adhesions (postprocedural) (postinfection); R00.1 Bradycardia, unspecified; I11.9 Hypertensive heart disease without heart failure; G47.33 Obstructive sleep apnea (adult) (pediatric); M17.0 Bilateral primary osteoarthritis of knee; E66.01 Morbid (severe) obesity due to excess calories; Z68.32 Body mass index [BMI] 32.0-32.9, adult; Z79.899 Other long term (current) drug therapy; Z91.030 Bee allergy status; Z96.651 Presence of right artificial knee joint; Z98.84 Bariatric surgery status; Z98.890 Other specified postprocedural states; Z80.9 Family history of malignant neoplasm, unspecified
CPT/HCPCS: 47562; S2900; 36415; 76705; 80053; 80061; 81003; 82150; 83605; 83690; 84443; 84484; 85025; 87635; 88304; 93005; 96361; 96374; 96375; 99285

== ENCOUNTER → 2020-11-11 | Outpatient (CLI) | payer BC ==
[2020-11-11 14:46] VITALS: BP 165/93; PULSE 65; RESP 18; TEMP 98.5; BMI 34.5
--- NOTE | 2020-11-11 15:12 | P.PN ---
Subjective Progress Note Date: 11/11/20 He is doing very well. Follow up with geophysical drafter. Objective - Vital Signs Vital signs: Vital Signs Temp 98.5 F 11/11/20 14:40 Pulse 65 11/11/20 14:40 Resp 18 11/11/20 14:40 BP 165/93 11/11/20 14:40 Pulse Ox Intake & Output 11/10/20 11/11/20 11/11/20 18:59 06:59 18:59 Weight 101.605 kg
== END ==
LOC: BARWHC3 14:04
PROVIDERS: ATTEND Surgery Plastic and Reconstructive Surgery
DX: E66.01 Morbid (severe) obesity due to excess calories (principal); Z68.34 Body mass index [BMI] 34.0-34.9, adult; Z85.3 Personal history of malignant neoplasm of breast; Z46.51 Encounter for fitting and adjustment of gastric lap band
CPT/HCPCS: 99211

== ENCOUNTER → 2020-11-25 | Outpatient (CLI) | payer BC ==
[2020-11-25 15:56] VITALS: BP 166/98; PULSE 49; RESP 16; TEMP 97.9; BMI 32.8
--- NOTE | 2020-11-25 16:37 | P.PN ---
Subjective Progress Note Date: 11/25/20 He comes in with new flank pain at right back. Previous right upper back pain is resolved. Clinically kidney stones. Recommend ultrasound. Objective - Vital Signs Vital signs: Vital Signs Temp 97.9 F 11/25/20 15:52 Pulse 49 L 11/25/20 15:52 Resp 16 11/25/20 15:52 BP 166/98 11/25/20 15:52 Pulse Ox Intake & Output 11/24/20 11/25/20 11/25/20 18:59 06:59 18:59 Weight 96.615 kg
--- NOTE | 2020-11-25 16:51 | P.PN ---
Progress Note - Text Progress Note Date: 11/25/20 To whom it may concern: Fabricio Chang is under my surgical care. He needs additional recovery. Anticipated return to work is Monday December 14, 2020. Regards, Kaela Hamilton MD, FACS
== END | disposition home or self-care (01) ==
LOC: BARWHC3 15:27
PROVIDERS: ATTEND Surgery Plastic and Reconstructive Surgery
DX: Z02.79 Encounter for issue of other medical certificate (principal)
CPT/HCPCS: 99211

== ENCOUNTER → 2020-12-01 | Outpatient (CLI) | payer BC ==
--- NOTE | 2020-12-01 13:11 | CT ---
EXAMINATION TYPE: CT abdomen pelvis wo con DATE OF EXAM: 12/01/2020 HISTORY: Rt flank pain CT DLP: 988 mGycm. Automated Exposure Control for Dose Reduction was Utilized. TECHNIQUE: CT scan of the abdomen and pelvis is performed without oral or IV contrast. COMPARISON: CT abdomen October 27, 2016. Liver ultrasound November 07, 2020 FINDINGS: Within the limitations of a non-contrast study, the following observations are made. LUNG BASES: No significant abnormality is appreciated. LIVER/GB: Gallbladder now not seen. Suspect interval surgery from recent ultrasound, correlate clinic ally. Hyperdense linear material gallbladder fossa favor surgical sutures. PANCREAS: No significant abnormality is seen. SPLEEN: No significant abnormality is seen. ADRENALS: No significant abnormality is seen. KIDNEYS: No renal calculus or hydronephrosis is seen bilaterally. BOWEL: Suboptimal evaluation of bowel without enteric contrast. Surgical changes from gastric sleeve procedure now present. No suspicious small or large bowel dilatation. A few diverticula in the sigmoi d colon. GENITAL ORGANS: Prostate gland measures upper limits of normal in size. LYMPH NODES: No greater than 1cm abdominal or pelvic lymph nodes are appreciated. A few scattered pro minent but subcentimeter bilateral groin lymph nodes OSSEOUS STRUCTURES: Moderate multilevel spurring in the spine. Mild to moderate disc space narrowing lumbosacral junction. OTHER: No significant additional abnormality is seen. IMPRESSION: No renal stones or hydronephrosis is seen bilaterally. No suspicious new or acute finding s identified.
== END | disposition home or self-care (01) ==
LOC: RADCTMAIN 12:09
PROVIDERS: ATTEND Surgery Plastic and Reconstructive Surgery
DX: N20.0 Calculus of kidney (principal); K57.92 Diverticulitis of intestine, part unspecified, without perforation or abscess without bleeding; R10.9 Unspecified abdominal pain
CPT/HCPCS: 74176

== ENCOUNTER → 2020-12-02 | Outpatient (CLI) | payer BC ==
--- NOTE | 2020-12-02 16:42 | P.PN ---
Subjective Progress Note Date: 12/02/20 DATE OF SERVICE: 12/02/2020 CHIEF COMPLAINT: Status post sleeve gastrectomy HISTORY OF PRESENT ILLNESS: Fabricio Ortiz is a 55-year-old male status post sleeve gastrectomy, 08/03/2020. He is 4 months out. He is now status post robotic cholecystectomy 11/09/2020. He is 3 weeks out. He comes in with pain at his right upper quadrant pain to his back which is different from his gallbladder pain. He has constipation and have bowel movement every 4 to 5 days. His blood pressure is up. He is eating moderate processed foods. At height of 5 feet 7.5 inches, ideal body weight is 158 pounds. His highest weight was 278 pounds, BMI 43.0. He comes in 209 pounds from 212 pounds, 1 week ago. He has lost 3 pounds in 1 week. Lifetime weight loss 68 pounds. Lifetime percent excess weight loss 57 %. He is 51 pounds overweight. PHYSICAL EXAM: VITAL SIGNS: Height 5 foot 7.5 inches, weight 209 pounds. BMI 32.4 Vital Signs Temp 98 F 12/02/20 16:07 Pulse 57 L 12/02/20 16:07 Resp 16 12/02/20 16:07 BP 168/94 12/02/20 16:07 Pulse Ox GENERAL: Well-developed in no acute distress. HEENT: No scleral icterus. Extraocular movements grossly intact. Hears conversational speech. No nasal drainage. NECK: Supple without lymphadenopathy. CHEST: Nonlabored respirations with equal bilateral excursions. CARDIOVASCULAR: Regular rate and regular rhythm. Distal 2+ pulses. ABDOMEN: Nontender, nondistended. MUSCULOSKELETAL: No clubbing, cyanosis. NEURO: No focal or lateralizing signs. Cranial nerves 2 through 12 grossly within normal limits. PSYCH: Appropriate affect. Alert and oriented to person, place and time. SKIN: Good skin turgor. Well perfused. STUDIES: CT of the abdomen and pelvis independently reviewed without small bowel obstruction. Moderate stool identified. This is my independent interpretation. RADIOLOGY: CT of the abdomen and pelvis without kidney stones. Feature of diverticulosis. ASSESSMENT: 1. Morbid obesity due to excess calories 2. Body mass index of 41.0 down to 32.4 3. Osteoarthritis of the knees. 4. Obstructive sleep apnea 5. Hypertensive heart disease 6. Status post sleeve gastrectomy 7. Iron deficiency anemia 8. Vitamin A deficiency 9. Secondary hyperparathyroidism 10. Right flank pain, new 11. Kidney stones PLAN: 1. He has poorly controlled hypertension. Recommend limit processed foods. 2. Dietary adjustment, recommend limit protein to 80 grams daily Objective - Vital Signs Vital signs: Vital Signs Temp 98 F 12/02/20 16:07 Pulse 57 L 12/02/20 16:07 Resp 16 12/02/20 16:07 BP 168/94 12/02/20 16:07 Pulse Ox Intake & Output 12/01/20 12/02/20 12/02/20 18:59 06:59 18:59 Weight 95.254 kg
== END ==
CPT/HCPCS: 99211

== ENCOUNTER → 2021-01-19 | Outpatient (CLI) | payer BC ==
--- NOTE | 2021-01-19 14:41 | US ---
EXAMINATION TYPE: US venous doppler duplex LE RT DATE OF EXAM: 01/19/2021 1:42 PM COMPARISON: NONE CLINICAL HISTORY: R22.40 SWELLING,MASS AND LUMP. Patient had right knee replacement. Feels "swelling" upper, posterior calf. SIDE PERFORMED: Right TECHNIQUE: The lower extremity deep venous system is examined utilizing real time linear array sonog luiz with graded compression, doppler sonography and color-flow sonography. VESSELS IMAGED: Common Femoral Vein Deep Femoral Vein Greater Saphenous Vein * Femoral Vein Popliteal Vein Small Saphenous Vein * Proximal Calf Veins (* superficial vessels) Right Leg: Negative for DVT fluid collection with internal echos at area of swelling = 5.0 x 3.5 x 1.5 cm IMPRESSION: 1. Right lower extremity ultrasound negative for deep venous thrombosis. 2. Complex hypoechoic area of the area of swelling. Hematoma could be considered. Follow-up is recomm ended.
== END | disposition home or self-care (01) ==
LOC: RADUSWWP 13:02
PROVIDERS: ATTEND Family Medicine
DX: R22.41 Localized swelling, mass and lump, right lower limb (principal); Z96.651 Presence of right artificial knee joint

== ENCOUNTER → 2021-09-22 | Outpatient (CLI) | payer BC ==
[2021-09-22 16:55] VITALS: BP 144/93; PULSE 65; RESP 16; TEMP 98.3; BMI 31.4
--- NOTE | 2021-09-22 17:12 | P.BASOAP ---
Subjective Progress Note Date: 09/22/21 DATE OF SERVICE: 09/22/2021 CHIEF COMPLAINT: Status post sleeve gastrectomy HISTORY OF PRESENT ILLNESS: Fabricio Ortiz is a 56-year-old male status post sleeve gastrectomy, 08/03/2020. He is 2 years out. He got down to 188 pounds. He comes in with new heartburn. He takes TUMS without relief. All foods gives him heartburn. He eats crackers. He has new iron deficiency. He presents for management of his new symptoms. At height of 5 feet 7.5 inches, ideal body weight is 158 pounds. His highest weight was 278 pounds, BMI 43.0. He comes in 204 pounds from 202 pounds, 6 months ago. He has gained 2 pounds in 6 months. His body mass index is 31.5. Lifetime weight loss 74 pounds. Lifetime percent excess weight loss 62 %. He is 46 pounds overweight. PHYSICAL EXAM: VITAL SIGNS: Height 5 foot 7.5 inches, weight 204 pounds. BMI 31.5 Vital Signs Temp 98.3 F 09/22/21 16:53 Pulse 65 09/22/21 16:53 Resp 16 09/22/21 16:53 BP 144/93 09/22/21 16:53 Pulse Ox GENERAL: Well-developed in no acute distress. HEENT: No scleral icterus. Extraocular movements grossly intact. Hears conversational speech. No nasal drainage. NECK: Supple without lymphadenopathy. CHEST: Nonlabored respirations with equal bilateral excursions. CARDIOVASCULAR: Regular rate and regular rhythm. Distal 2+ pulses. ABDOMEN: Nontender, nondistended. MUSCULOSKELETAL: No clubbing, cyanosis. NEURO: No focal or lateralizing signs. Cranial nerves 2 through 12 grossly within normal limits. PSYCH: Appropriate affect. Alert and oriented to person, place and time. SKIN: Good skin turgor. Well perfused. LABS: Reviewed. Iron is low. Triglycerides elevated. ASSESSMENT: 1. Morbid obesity due to excess calories 2. Body mass index of 41.0 down to 31.5 3. Osteoarthritis of the knees. 4. Obstructive sleep apnea 5. Hypertensive heart disease 6. Status post sleeve gastrectomy 7. Iron deficiency anemia 8. Vitamin A deficiency 9. Secondary hyperparathyroidism 10. Right flank pain, new 11. Kidney stones 12. Diverticulosis 13. Iron deficiency 14. Hypertriglyceridemia PLAN: 1. He comes in with new heartburn. Recommend upper endoscopy as symptoms are not improved with medications. 2. He has iron deficiency. Recommend oral iron or multivitamin for women. 3. Recommend new bariatric labs. Objective - Vital Signs Vital signs: Vital Signs Temp 98.3 F 09/22/21 16:53 Pulse 65 09/22/21 16:53 Resp 16 09/22/21 16:53 BP 144/93 09/22/21 16:53 Pulse Ox Intake & Output 09/21/21 09/22/21 09/22/21 18:59 06:59 18:59 Weight 92.533 kg Assessment/Plan Plan: Date: 09/22/21 Initial Weight: 120.656 kg Initial BMI: 41.0 Current Weight: 92.533 kg Current BMI: 31.4 Type of Surgery: Total Volume in Band: Previous Volume: Volume Removed: Volume Added: Band Size:
== END ==
LOC: BARWHC3 16:24
PROVIDERS: ATTEND Surgery Plastic and Reconstructive Surgery
DX: E66.01 Morbid (severe) obesity due to excess calories (principal); Z68.31 Body mass index [BMI] 31.0-31.9, adult; M17.0 Bilateral primary osteoarthritis of knee; G47.33 Obstructive sleep apnea (adult) (pediatric); I11.9 Hypertensive heart disease without heart failure; Z98.84 Bariatric surgery status; D50.9 Iron deficiency anemia, unspecified; E50.9 Vitamin A deficiency, unspecified; E21.1 Secondary hyperparathyroidism, not elsewhere classified; N20.0 Calculus of kidney; K57.90 Diverticulosis of intestine, part unspecified, without perforation or abscess without bleeding; E78.1 Pure hyperglyceridemia; Z91.030 Bee allergy status
CPT/HCPCS: 99211

== ENCOUNTER 2024-04-07 17:06 | Emergency (ER) | payer BC ==
[2024-04-07] MEDS: SODIUM CHLORIDE 0.9% 1,000 ML IV STA ×2 (17:12)
[2024-04-07 17:20] LABS: Glucose,Whole Blood 202 mg/dL (70-110)
[2024-04-07] MEDS: DIPH,PERTUS(ACELL)TETVAC-LF 0.5 ML VIAL IM ONE (17:25)
[2024-04-07 17:27] VITALS: BP 79/43; PULSE 135; RESP 20; TEMP 95
[2024-04-07 17:32] LABS: Basophils # (A) 0.1 k/uL (0-0.2); Basophils % (A) 0 %; Eosinophils # (A) 0.2 k/uL (0-0.7); Eosinophils % (A) 2 %; HGB 11.6 gm/dL (13.0-17.5); Lymphocytes # (A) 3.6 k/uL (1.0-4.8); Lymphocytes % (A) 31 %; MCV 91.3 fL (80.0-100.0); Mean Platelet Volume 7.6; Monocytes # (A) 0.5 k/uL (0-1.0); Monocytes % (A) 4 %; Neutrophils # (A) 7.2 k/uL (1.3-7.7); Neutrophils % (A) 62 %; Platelet Count 323 k/uL (150-450); RBC 3.72 m/uL (4.30-5.90); RDW 13.6 % (11.5-15.5); WBC 11.6 k/uL (3.8-10.6)
--- NOTE | 2024-04-07 17:39 | ED ---
General Adult HPI - General Chief complaint: Trauma Stated complaint: Trauma Time Seen by Provider: 04/07/24 17:10 Source: patient, EMS, RN notes reviewed, old records reviewed Mode of arrival: EMS Limitations: no limitations - History of Present Illness Initial comments: Patient is a 58-year-old male with no significant past medical history presents emergency department as a part of 2 trauma. Patient was cutting down a tree stump when a large 5 to 6 foot piece of tree stump that was extremely heavy fell off and landed on the patient's left side and back and rolled off. Patient was unable to move after this injury. Does not believe he lost consciousness or hit his head. Is not on blood thinners. Denies any chest pain or shortness of breath. Endorses severe left hip pain and left back pain. Endorses decreased range of motion of the left hip. Presents for further evaluation at this time. - Related Data Home Medications Medication Instructions Recorded Confirmed EPINEPHrine (Auto Inject) [Epipen] 0.3 mg IM ONCE PRN 11/30/17 09/23/21 Losartan [Cozaar] 25 mg PO DAILY 12/02/20 09/23/21 hydroCHLOROthiazide 12.5 mg PO DAILY 03/31/21 09/23/21 Allergies Allergy/AdvReac Type Severity Reaction Status Date / Time bee venom protein (honey bee) Allergy Anaphylaxis Verified 04/07/24 17:27 Review of Systems ROS Statement: Those systems with pertinent positive or pertinent negative responses have been documented in the HPI. Review of Systems: CONST: Denies fever EYES: Denies blurry vision ENT: Denies nasal congestion C/V: Denies Chest pain RESP: Denies shortness of breath GI: Denies abdominal pain : Denies dysuria SKIN: Denies rash. MSK: Endorses left hip pain, back pain. NEURO: Denies headache ROS Other: All systems not noted in ROS Statement are negative. Past Medical History Past Medical History: Osteoarthritis (OA) Additional Past Medical History / Comment(s): hx of htn,sleep apnea per pt no medication or cpap needed since weight loss History of Any Multi-Drug Resistant Organisms: None Reported Past Surgical History: Bariatric Surgery, Cholecystectomy, Hernia Repair, Joint Replacement, Orthopedic Surgery Additional Past Surgical History / Comment(s): rt shoulder surgery, BILATERAL EYE SURGERY; right knee replacement surgery 04/30/2020 sleeve gastrectomy 08-05-20; cholecystectomy 11/09/2020. Past Anesthesia/Blood Transfusion Reactions: No Reported Reaction Past Psychological History: No Psychological Hx Reported Smoking Status: Never smoker Past Alcohol Use History: None Reported Past Drug Use History: None Reported - Past Family History Father Family Medical History: Cancer Mother Family Medical History: Cancer Sister(s) Family Medical History: Cancer General Exam - General Exam Comments Initial Comments: General: Appears in moderate distress secondary to pain. HEAD: Normal with no signs of head trauma. Negative Syed sign. Negative raccoon eyes. EYES: PERRLA, EOMI, conjunctiva normal, no discharge. Pupils are 3 mm and equal bilaterally. ENT: Hearing grossly intact, normal oropharynx. RESPIRATORY: Clear breath sounds bilaterally. No wheezes, rales, or rhonchi. No hypoxia. No increased work of breathing. C/V: Presents tachycardic. Regular rhythm. S1 and S2 auscultated. Peripheral pulses are 2+ and intact throughout. ABD: Abd is soft, nontender, nondistended no guarding. EXT: Shortening and obvious deformity of the left hip with concern for injury to the pelvis. Decreased range of motion of the left hip secondary to pain. Midline lumbar spine tenderness to palpation. No significant midline cervical or thoracic spine tenderness to palpation. Pelvis is unstable on exam and pelvic binder was placed. SKIN: Significant abrasion and bruising across the lower back from the left side to the right side of the lower lumbar spine and paraspinal muscle region. Various abrasions over the distal left lower extremity as well as over the right [place]. NEURO: Alert and oriented x 4. GCS of 15. Decreased movement and weakness of the left lower extremity secondary to pain in the left hip. Intact sensation throughout. Limitations: no limitations Course Vital Signs 04/07/24 17:22 Temperature 95 F L Pulse Rate 135 H Respiratory 20 Rate Blood Pressure 79/43 O2 Sat by Pulse 97 Oximetry Medical Decision Making - Medical Decision Making Was pt. sent in by a medical professional or institution (, PA, SURGERY AIDE, urgent care, hospital, or usp...) When possible be specific @ -No Did you speak to anyone other than the patient for history (EMS, parent, family, police, friend...)? What history was obtained from this source @ -No Did you review nursing and triage notes (agree or disagree)? Why? @ -I reviewed and agree with nursing and triage notes Were old charts reviewed (outside hosp., previous admission, EMS record, old EKG, old radiological studies, urgent care reports/EKG's, usp records)? Report findings @ -No old charts were reviewed Differential Diagnosis (chest pain, altered mental status, abdominal pain women, abdominal pain men, vaginal bleeding, weakness, fever, dyspnea, syncope, headache, dizziness, GI bleed, back pain, seizure, CVA, palpatations, mental health, musculoskeletal)? @ -MDM differential musculoskeletal. Also includes pelvic fracture, intra- abdominal bleeding. This list is not all inclusive. EKG interpreted by me (3pts min.). @ -As above X-rays interpreted by me (1pt min.). @ -Chest x-ray shows no obvious acute cardiopulmonary process. Pelvis x-ray reveals an open book pelvic fracture with the pelvic binder in place. Foot x- ray negative for any obvious acute injury. CT interpreted by me (1pt min.). @ -Interpreted by radiology. Extensive complex pelvic ring fracture, multiple hematomas and contusions of the posterior lower back, no active intra-abdominal extravasation or intra peritoneal extravasation but patient does have evidence of previous hemorrhage in the pelvis. U/S interpreted by me (1pt. min.). @ -None done What testing was considered but not performed or refused? (CT, X-rays, U/S, la bs)? Why? @ -None What meds were considered but not given or refused? Why? @ -Considered pain medications however patient initially hypotensive. Patient given 2 L fluid bolus. This improved and patient be given IV fentanyl for analgesia. Did you discuss the management of the patient with other professionals (professionals i.e. , PA, SURGERY AIDE, lab, RT, psych nurse, sexual assault social worker, wet wash assembler, teacher, environmental protection officer, case management manager)? Give summary @ -Discussed with trauma surgeon on-call, Dr. Parker who was in agreement with plan for transfer and management. Did discuss MTP concerning initial hypo tension and we both agreed to empirically start despite patient's blood pressures responding to IV fluids. I was in agreement this plan. I spoke with Dr. Dunlap orthopedic on-call who called back immediately and was in agreement plan for transfer. I spoke with accepting physician at [facility], Dr. Child who accepted the transfer. Was smoking cessation discussed for >3mins.? @ -No Was critical care preformed (if so, how long)? @ -Yes, 48 minutes. Were there social determinants of health that impacted care today? How? (Homelessness, low income, unemployed, alcoholism, drug addiction, transportation, low edu. Level, literacy, decrease access to med. care, long term, rehab)? @ -No Was there de-escalation of care discussed even if they declined (Discuss DNR or withdrawal of care, Hospice)? DNR status @ -No What co-morbidities impacted this encounter? (DM, HTN, Smoking, COPD, CAD, Ca ncer, CVA, ARF, Chemo, Hep., AIDS, mental health diagnosis, sleep apnea, morbid obesity)? @ -none Was patient admitted / discharged? Hospital course, mention meds given and route, prescriptions, significant lab abnormalities, going to OR and other pertinent info. @ -Based on the patient's presentation and physical exam, presents emergency department after a trauma activation. Patient made a level 2 trauma activation. ATLS protocol followed. Patient placed in a cervical collar. Patient placed in a pelvic binder due to unstable pelvis on exam. Vital signs remarkable initially for tachycardia and hypotension. No respiratory distress. Patient initiated on multiple fluid boluses after multiple IV sites obtained. Patient's blood pressure did respond to fluid boluses but MTP was ordered empirically as patient's x-rays are concerning for an open book pelvic fracture. We will obtain CT imaging as well as trauma labs. In addition to the MTP, patient given a dose of transexemic acid over concern for possible intrapelvic bleeding from the pelvic fractures. FAST exam performed by myself was negative for any intra- abdominal free fluid. I spoke with Dr. Parker of the trauma surgeon on-call who he was in agreement this plan. He was in agreement the plan for transfer. I spoke with the on-call orthopedics who was in agreement the plan for transfer. I spoke with the accepting physician at [facility], Dr. Child who accepted the transfer. Patient was started on MTP and received 1 unit of packed red blood cells here and was sent with FFP as well as remaining MTP in the EMS rig. Patient's blood pressures remained within acceptable limits with MAP over 65 and systolics in the 90s following CT imaging. Patient received the TXA as well as Ancef. I did order Levophed empirically for the EMS crew to start if needed however instructions were for us to provide the patient with blood products. Patient's labs did return while patient was about to be taken out through the ambulance bay and remarkable for leukocytosis of 11.6 which is likely reactive. Hemoglobin is also 11.6. Coags within normal limits. Lactic acid is 6.5 in the setting of trauma. Patient does have blood in his urine. Nicholson catheter was passed successfully. CT imaging was pending. Images were pushed to [facility]. CT imaging returned after the patient was already en route to [facility] and was relayed to me from radiology Dr. Álvarez. I did update Dr. Chaidez via phone call. Patient had not yet arrived at their facility. CT brain and C- spine negative for any any obvious acute traumatic injury. CT angiogram of the chest and abdomen pelvis reveals multiple hematomas and contusion of the posterior lower back, multiple transverse process fractures of the lumbar spine, spinous fractures of the lumbar spine, as well as a 3 column fracture at the L4 level and a hematoma or disc herniation at L3-L4. Patient has multiple pelvic fractures and open book pelvic fractures bilaterally. No active extravasation. Transferring trauma physician expressed understanding. Undiagnosed new problem with uncertain prognosis? @ -No Drug Therapy requiring intensive monitoring for toxicity (Heparin, Nitro, Insulin, Cardizem)? @ -No Were any procedures done? @ -No Diagnosis/symptom? @ -Trauma, open book pelvic fracture, complex pelvic ring fracture, hypotension, multiple lumbar spine fractures Acute, or Chronic, or Acute on Chronic? @ -Acute Uncomplicated (without systemic symptoms) or Complicated (systemic symptoms)? @ -Complicated Side effects of treatment? @ -No Exacerbation, Progression, or Severe Exacerbation? @ -No Poses a threat to life or bodily function? How? (Chest pain, [place], [place], pneumonia, PE, COPD, DKA, ARF, appy, cholecystitis, CVA, Diverticulitis, Homicidal, Suicidal, threat to staff... and all critical care pts) @ -Yes - Lab Data Result diagrams: 04/07/24 17:17 04/07/24 17:17 Lab Results 04/07/24 04/07/24 04/07/24 Range/Units 17:15 17:17 17:17 WBC 11.6 H (3.8-10.6) k/uL RBC 3.72 L (4.30-5.90) m/uL Hgb 11.6 L (13.0-17.5) gm/dL Hct 34.0 L (39.0-53.0) % MCV 91.3 (80.0-100.0) fL MCH 31.0 (25.0-35.0) pg MCHC 34.0 (31.0-37.0) g/dL RDW 13.6 (11.5-15.5) % Plt Count 323 (150-450) k/uL MPV 7.6 Neutrophils % 62 % Lymphocytes % 31 % Monocytes % 4 % Eosinophils % 2 % Basophils % 0 % Neutrophils # 7.2 (1.3-7.7) k/uL Lymphocytes # 3.6 (1.0-4.8) k/uL Monocytes # 0.5 (0-1.0) k/uL Eosinophils # 0.2 (0-0.7) k/uL Basophils # 0.1 (0-0.2) k/uL PT 11.3 (10.0-12.5) sec INR 1.0 (<1.2) APTT 19.6 L (22.0-30.0) sec Sodium (137-145) mmol/L Potassium (3.5-5.1) mmol/L Chloride (98-107) mmol/L Carbon Dioxide (22-30) mmol/L Anion Gap mmol/L BUN (9-20) mg/dL Creatinine (0.66-1.25) mg/dL Est GFR (CKD-EPI)AfAm (>60 ml/min/1.73 sqM) Est GFR (CKD-EPI)NonAf (>60 ml/min/1.73 sqM) Glucose (74-99) mg/dL POC Glucose (mg/dL) (70-110) mg/dL POC Glu Manager Technical Training ID Lactic Ac Sepsis Rflx Plasma Lactic Acid Daniel (0.7-2.0) mmol/L Calcium (8.4-10.2) mg/dL Total Bilirubin (0.2-1.3) mg/dL AST (17-59) U/L ALT (4-49) U/L Alkaline Phosphatase (38-126) U/L Total Protein (6.3-8.2) g/dL Albumin (3.5-5.0) g/dL Urine Color Urine Appearance (Clear) Urine pH (5.0-8.0) Ur Specific [place] (1.001-1.035) Urine Protein (Negative) Urine Glucose (UA) (Negative) Urine Ketones (Negative) Urine Blood (Negative) Urine Nitrite (Negative) Urine Bilirubin (Negative) Urine Urobilinogen (<2.0) mg/dL Ur Leukocyte Esterase (Negative) Urine RBC (0-5) /hpf Urine WBC (0-5) /hpf Ur Squamous Epith Cells (0-4) /hpf Urine Mucus (None) /hpf Urine Opiates Screen (NotDetected) Ur Oxycodone Screen (NotDetected) Urine Methadone Screen (NotDetected) Ur Barbiturates Screen (NotDetected) U Tricyclic Antidepress (NotDetected) Ur Phencyclidine Scrn (NotDetected) Ur Amphetamines Screen (NotDetected) U Methamphetamines Scrn (NotDetected) U Benzodiazepines Scrn (NotDetected) Urine Cocaine Screen (NotDetected) U Marijuana (THC) Screen (NotDetected) Serum Alcohol mg/dL Blood Type O Positive Blood Type Recheck O Pos Bld Type Recheck Status No Antibody Screen NEGATIVE Crossmatch See Detail Transfuse Plasma 04/07/24 Spec Expiration Date 04/10/2024231404/07/24 04/07/24 04/07/24 Range/Units 17:17 17:17 17:19 WBC (3.8-10.6) k/uL RBC (4.30-5.90) m/uL Hgb (13.0-17.5) gm/dL Hct (39.0-53.0) % MCV (80.0-100.0) fL MCH (25.0-35.0) pg MCHC (31.0-37.0) g/dL RDW (11.5-15.5) % Plt Count (150-450) k/uL MPV Neutrophils % % Lymphocytes % % Monocytes % % Eosinophils % % Basophils % % Neutrophils # (1.3-7.7) k/uL Lymphocytes # (1.0-4.8) k/uL Monocytes # (0-1.0) k/uL Eosinophils # (0-0.7) k/uL Basophils # (0-0.2) k/uL PT (10.0-12.5) sec INR (<1.2) APTT (22.0-30.0) sec Sodium 140 (137-145) mmol/L Potassium 3.5 (3.5-5.1) mmol/L Chloride 112 H (98-107) mmol/L Carbon Dioxide 17 L (22-30) mmol/L Anion Gap 11 mmol/L BUN 20 (9-20) mg/dL Creatinine 1.31 H (0.66-1.25) mg/dL Est GFR (CKD-EPI)AfAm 68 (>60 ml/min/1.73 sqM) Est GFR (CKD-EPI)NonAf 59 (>60 ml/min/1.73 sqM) Glucose 206 H (74-99) mg/dL POC Glucose (mg/dL) 202 H (70-110) mg/dL POC Glu Manager Technical Training ID [place] Lactic Ac Sepsis Rflx Plasma Lactic Acid Daniel 6.5 H* (0.7-2.0) mmol/L Calcium 8.1 L (8.4-10.2) mg/dL Total Bilirubin 0.4 (0.2-1.3) mg/dL AST 43 (17-59) U/L ALT 31 (4-49) U/L Alkaline Phosphatase 71 (38-126) U/L Total Protein 5.2 L (6.3-8.2) g/dL Albumin 3.1 L (3.5-5.0) g/dL Urine Color Urine Appearance (Clear) Urine pH (5.0-8.0) Ur Specific [place] (1.001-1.035) Urine Protein (Negative) Urine Glucose (UA) (Negative) Urine Ketones (Negative) Urine Blood (Negative) Urine Nitrite (Negative) Urine Bilirubin (Negative) Urine Urobilinogen (<2.0) mg/dL Ur Leukocyte Esterase (Negative) Urine RBC (0-5) /hpf Urine WBC (0-5) /hpf Ur Squamous Epith Cells (0-4) /hpf Urine Mucus (None) /hpf Urine Opiates Screen (NotDetected) Ur Oxycodone Screen (NotDetected) Urine Methadone Screen (NotDetected) Ur Barbiturates Screen (NotDetected) U Tricyclic Antidepress (NotDetected) Ur Phencyclidine Scrn (NotDetected) Ur Amphetamines Screen (NotDetected) U Methamphetamines Scrn (NotDetected) U Benzodiazepines Scrn (NotDetected) Urine Cocaine Screen (NotDetected) U Marijuana (THC) Screen (NotDetected) Serum Alcohol <10 mg/dL Blood Type Blood Type Recheck Bld Type Recheck Status Antibody Screen Crossmatch Transfuse Plasma Spec Expiration Date 04/07/24 04/07/24 Range/Units 17:26 18:21 WBC (3.8-10.6) k/uL RBC (4.30-5.90) m/uL Hgb (13.0-17.5) gm/dL Hct (39.0-53.0) % MCV (80.0-100.0) fL MCH (25.0-35.0) pg MCHC (31.0-37.0) g/dL RDW (11.5-15.5) % Plt Count (150-450) k/uL MPV Neutrophils % % Lymphocytes % % Monocytes % % Eosinophils % % Basophils % % Neutrophils # (1.3-7.7) k/uL Lymphocytes # (1.0-4.8) k/uL Monocytes # (0-1.0) k/uL Eosinophils # (0-0.7) k/uL Basophils # (0-0.2) k/uL PT (10.0-12.5) sec INR (<1.2) APTT (22.0-30.0) sec Sodium (137-145) mmol/L Potassium (3.5-5.1) mmol/L Chloride (98-107) mmol/L Carbon Dioxide (22-30) mmol/L Anion Gap mmol/L BUN (9-20) mg/dL Creatinine (0.66-1.25) mg/dL Est GFR (CKD-EPI)AfAm (>60 ml/min/1.73 sqM) Est GFR (CKD-EPI)NonAf (>60 ml/min/1.73 sqM) Glucose (74-99) mg/dL POC Glucose (mg/dL) (70-110) mg/dL POC Glu Manager Technical Training ID Lactic Ac Sepsis Rflx Y Plasma Lactic Acid Daniel (0.7-2.0) mmol/L Calcium (8.4-10.2) mg/dL Total Bilirubin (0.2-1.3) mg/dL AST (17-59) U/L ALT (4-49) U/L Alkaline Phosphatase (38-126) U/L Total Protein (6.3-8.2) g/dL Albumin (3.5-5.0) g/dL Urine Color Yellow Urine Appearance Clear (Clear) Urine pH 6.0 (5.0-8.0) Ur Specific [place] 1.022 (1.001-1.035) Urine Protein Negative (Negative) Urine Glucose (UA) Negative (Negative) Urine Ketones Negative (Negative) Urine Blood Moderate H (Negative) Urine Nitrite Negative (Negative) Urine Bilirubin Negative (Negative) Urine Urobilinogen <2.0 (<2.0) mg/dL Ur Leukocyte Esterase Negative (Negative) Urine RBC 166 H (0-5) /hpf Urine WBC 5 (0-5) /hpf Ur Squamous Epith Cells 2 (0-4) /hpf Urine Mucus Rare H (None) /hpf Urine Opiates Screen Not Detected (NotDetected) Ur Oxycodone Screen Not Detected (NotDetected) Urine Methadone Screen Not Detected (NotDetected) Ur Barbiturates Screen Not Detected (NotDetected) U Tricyclic Antidepress Not Detected (NotDetected) Ur Phencyclidine Scrn Not Detected (NotDetected) Ur Amphetamines Screen Not Detected (NotDetected) U Methamphetamines Scrn Not Detected (NotDetected) U Benzodiazepines Scrn Not Detected (NotDetected) Urine Cocaine Screen Not Detected (NotDetected) U Marijuana (THC) Screen Not Detected (NotDetected) Serum Alcohol mg/dL Blood Type Blood Type Recheck Bld Type Recheck Status Antibody Screen Crossmatch Transfuse Plasma Spec Expiration Date - EKG Data -: EKG Interpreted by Me EKG Comments: 12-lead Electrocardiogram Interpretation Note EKG was reviewed and interpreted by myself. 12-lead ECG performed at 1710 is interpreted by me as revealing sinus tachycardia at a rate of 121 beats per minute. [place] is normal. SC interval is 153 ms, QRS duration is 94 ms, QTc is 397 ms.. There were no ST or T wave abnormalities to suggest myocardial ischemia or injury. R wave progression across the precordium was satisfactory. By my interpretation this EKG is non-diagnostic for acute ischemia. Critical Care Time Critical Care Time: Yes Total Critical Care Time: 48 Disposition Clinical Impression: Trauma, Pelvic fracture, Pelvic ring fracture, Hypotension, Fracture of lumbar spine, Hematoma, Contusion Disposition: OTHER INSTITUTION NOT DEFINED Condition: Serious Referrals: Geremias Gonzalez MD [Primary Care Provider] - 1-2 days Time of Disposition: 18:10 - Out of Hospital Transfer - Req. Specs Out of Hospital Transfer - Requested Specifics: Other Emergency Center (Transfer to [facility] for escalation of trauma care for pelvic ring fracture.)
[2024-04-07] MEDS: fentaNYL (PF) 50 MCG/ML 2 ML AMP IVP STA (17:42)
[2024-04-07 17:44] LABS: ALT 31 U/L (4-49); AST 43 U/L (17-59); African American GFR (CKD) 68 (>60 ml/min/1.73 sqM); Albumin 3.1 g/dL (3.5-5.0); Alcohol <10 mg/dL; Alkaline Phosphatase 71 U/L (38-126); Anion Gap 11 mmol/L; Blood Urea Nitrogen 20 mg/dL (9-20); Calcium 8.1 mg/dL (8.4-10.2); Carbon Dioxide 17 mmol/L (22-30); Chloride 112 mmol/L (98-107); Glucose 206 mg/dL (74-99); Non-African American GFR(CKD) 59 (>60 ml/min/1.73 sqM); Potassium 3.5 mmol/L (3.5-5.1); Sodium 140 mmol/L (137-145); Total Bilirubin 0.4 mg/dL (0.2-1.3); Total Protein 5.2 g/dL (6.3-8.2)
--- NOTE | 2024-04-07 17:50 | XR ---
EXAMINATION TYPE: XR chest 1V portable DATE OF EXAM: 04/07/2024 Comparison: None Clinical History: 58 year-old male abdominal pain, trauma Findings: Heart normal size. Aorta and pulmonary vasculature within normal limits. No consolidation, pneumothor ax, or pleural effusion. Impression: No acute cardiopulmonary process.
--- NOTE | 2024-04-07 17:57 | XR ---
EXAMINATION TYPE: XR pelvis AP view DATE OF EXAM: 04/07/2024 Comparison: None Clinical History: 58-year-old male who fell on patient, pain after Trauma Findings: Multiple pelvic fractures. There is comminution and distortion of the left pubic bone including the p ubic body. There is a fracture of the lateral aspect of the right superior pubic ramus extending into the acetabulum and possible nondisplaced fracture extending up along the right iliac wing. Widening of the left SI joint. Impression: Complex pelvic fractures including disruption of the left SI joint and displaced comminuted fractures of the left pubic bone. Additional mildly displaced fracture lateral aspect of the right superior pu bic ramus and possible nondisplaced vertical fracture right iliac wing. Critical findings called to Beata Do in the ER at 5:54 PM.
[2024-04-07 17:59] LABS: Prothrombin Time 11.3 sec (10.0-12.5)
[2024-04-07] MEDS: TRANEXAMIC 1,000 MG/100ML-NACL 1,000 MG in SALINE 1 100ML.BAG IV STA (17:59)
[2024-04-07 18:01] LABS: Appearance,Urine Clear (Clear); Bilirubin,Urine Negative (Negative); Blood,Urine Moderate (Negative); Color,Urine Yellow; Glucose,Urine (UA) Negative (Negative); Ketones,Urine Negative (Negative); Leukocyte Esterase,Urine Negative (Negative); Mucus,Urine Rare /hpf; Nitrite,Urine Negative (Negative); Protein,Urine Negative (Negative); RBC,Urine 166 /hpf (0-5); Specific Gravity,Urine 1.022 (1.001-1.035); Squamous Epithelial Cell,Urine 2 /hpf (0-4); Urobilinogen,Urine <2.0 mg/dL (<2.0); WBC,Urine 5 /hpf (0-5)
--- NOTE | 2024-04-07 18:01 | CT ---
EXAMINATION TYPE: CT brain adrianaine wo con DATE OF EXAM: 04/07/2024 COMPARISON: None HISTORY: 58-year-old male pain after Tree fell on pts pelvis. CT DLP: Combined DLP of 4968.7 mGycm Automated exposure control for dose reduction was used. Technique: Examination of the head was done in axial plane without intravenous contrast. Coronal and sagittal reconstructions performed. CT of the cervical spine was obtained in axial plane without intravenous injection of contrast mater ial. Coronal and sagittal reformatted images were obtained from the axial views for evaluation of f ractures, spinal alignment and canal. FINDINGS: Head: There is no evidence of acute intracranial hemorrhage, acute ischemic changes, mass, mass-effect, or extra-axial fluid collection. There is no effacement of cerebral sulci or basal subarachnoid cister ns. There is no hydrocephalus. There is no midline shift. Simmons-white matter distinction is preserv ed. 2.1 cm mucosal retention cyst floor of the left maxillary sinus. Mild mucosal thickening throughout t he maxillary sinuses and ethmoid air cells. Orbits and globes are intact. No calvarial fracture. Cervical spine: No cranial cervical junction abnormality, predental space widening, or prevertebral soft tissue swell ing. Moderate spondylitic changes especially mid to lower cervical spine. Changes may contribute to mild t o moderate narrowing of the spinal canal at C5-C6 and below due to discussed accomplish formation. Fa cet and uncovertebral joint arthropathy is present throughout. Alignment is maintained. No acute fracture seen. Variable moderate neural foraminal stenoses throughout, severe on the left at C3-C4. Sagittal and coronal reformatted images confirm above findings. COMBINED IMPRESSION: 1. No acute intracranial abnormality seen. Mild chronic paranasal sinus disease. 2. No acute fracture or malalignment of the cervical spine. Moderate spondylotic change especially mi d to lower cervical spine.
[2024-04-07 18:02] LABS: Partial Thromboplastin Time 19.6 sec (22.0-30.0)
[2024-04-07 18:05] LABS: Amphetamine Screen,Urine Not Detected (NotDetected); Barbiturate Screen,Urine Not Detected (NotDetected); Benzodiazepines Screen,Urine Not Detected (NotDetected); Cocaine Screen,Urine Not Detected (NotDetected); Methadone Screen, Urine Not Detected (NotDetected); Opiate Screen,Urine Not Detected (NotDetected); Oxycodone Screen, Urine Not Detected (NotDetected); Phencyclidine Screen,Urine Not Detected (NotDetected); Tricyclic Antidepressant,Urine Not Detected (NotDetected); Urn Cannabinoid Scrn Not Detected (NotDetected)
--- NOTE | 2024-04-07 18:14 | XR ---
EXAMINATION TYPE: XR foot limited LT DATE OF EXAM: 04/07/2024 6:02 PM CLINICAL INDICATION: Male, 58 years old with history of trauma; H COMPARISON: None TECHNIQUE: XR foot limited LT examined in the AP, oblique, and lateral projections. FINDINGS: No evidence of any acute osseous pathology. Multifocal degeneration changes throughout the joints of the foot with osteophyte formation and joint space narrowing. Accessory ossicles are present. Inciden silvia note is made of symphalangism of the fifth distal interphalangeal joint.Bipartite lateral sesamoi d of the first digit IMPRESSION: 1. No evidence of acute fracture. 2. Multifocal degeneration changes throughout the joints of the foot.
[2024-04-07] MEDS: NOREPINEPHRINE 4 MG in SODIUM CHLORIDE 0.9% 250 ML IV ONE (18:20)
[2024-04-07] MEDS: fentaNYL (PF) 50 MCG/ML 2 ML AMP IVP PRN (18:20)
--- NOTE | 2024-04-07 18:34 | CT ---
EXAMINATION TYPE: CT angio thor/abd pel aorta, CT thor lumbar spine wo con DATE OF EXAM: 04/07/2024 COMPARISON: CT abdomen and pelvis 12/01/2020 HISTORY: 58-year-old male with pain, trauma, Tree fell on pts pelvis. TECHNIQUE: Contiguous axial scanning of the chest, abdomen, and pelvis performed without and with IV Contrast, patient injected with 100 ml mL of Isovue 300. Coronal/sagittal reconstructions performed. 3-D reconstructions generated on a dedicated workstation. Axial, coronal, and sagittal reconstruction s of the thoracic and lumbar spine from body CT images. CT DLP: Combined DLP of 4968.7 mGycm Automated exposure control for dose reduction was used. FINDINGS: Chest: Heart normal size without pericardial effusion. Ectatic ascending aorta up to 3.9 cm without evidence for aortic dissection. Conventional arch vessel branching anatomy. No thoracic lymphadenopathy or mediastinal hematoma. Strandy atelectasis in the lower lungs. Minimal emphysematous change may be present. 4 mm posteromedi al right mid lung pulmonary nodule can be reassessed in a 6 month follow-up CT. No consolidation, pne umothorax, or pleural effusion. ABDOMEN: There is a moderate-sized hiatal hernia with postsurgical changes of the gastrectomy. Noncontrast and arterial phase imaging of the liver, adrenal glands, right kidney, spleen, and pancre as show no gross abnormality. There is nonenhancement of the lower pole the left kidney which appears secondary to supply from acce ssory left renal artery from the distal abdominal aorta. Periaortic stranding is present. Findings [place] ggest some vascular injury to the accessory left renal artery. Strandy retroperitoneal hemorrhage tra cks down the left retroperitoneum and is also present within the extraperitoneal space of the pelvis. No dilated small bowel, free fluid, or free air. No mesenteric or retroperitoneal lymphadenopathy. No significant stool burden. No pericolonic inflammatory change. Pelvis: Mild extraperitoneal hemorrhage throughout the pelvis. Presacral hemorrhage. Some mild hemorrhage tra cking down the left retroperitoneum. No susan arterial extravasation is otherwise clearly identified. A Nicholson catheter decompresses the bl adder. Extensive soft tissue contusions and hematomas along the posterior abdominal wall. Fractures of the L 1-L3 transverse processes. Bones: Complex comminuted fracture of the right acetabulum with multiple intra-articular fracture lines. Dis ruption of the central articular surface of the acetabulum up to 1.3 cm wide and 3.7 cm AP. A couple nondisplaced oblique fractures of the right iliac wing. Vertical fracture posterior left iliac bone. 9 mm widening left SI joint. Complex comminution with d isplacement of the left pubic body and medial aspect of the superior and inferior pubic rami. Thoracic spine: There are transverse fractures through the posterior elements of L3 and L4 bilaterally. Fractures of the L2-L5 spinous processes. Fracture along the anterior superior corner of L4 and additional minimal ly depressed fracture of the L1 superior endplate. Possible disc herniation at L3-L4 causing at least moderate spinal canal stenosis. IMPRESSION: 1. EXTENSIVE SOFT TISSUE HEMATOMAS AND CONTUSIONS ALONG THE POSTERIOR LOWER BACK. DISPLACED FRACTURES OF THE L1-L3 TRANSVERSE PROCESSES. FRACTURES OF THE POSTERIOR ELEMENTS ON BOTH SIDES OF L3 AND L4. L2 THROUGH L5 SPINOUS PROCESS FRACTURES AND FRACTURES OF THE SUPERIOR ENDPLATES OF BOTH L1 AND L4. TH IS CONSTITUTES A 3 COLUMN FRACTURE AT THE L4 LEVEL. DISC HERNIATION VERSUS VENTRAL EPIDURAL HEMATOMA AT L3-L4 MAY CONTRIBUTE TO AT LEAST A MODERATE SPINAL CANAL STENOSIS. 2. MULTIPLE PELVIC FRACTURES. ON THE RIGHT, COMPLEX COMMINUTION OF THE ACETABULUM WITH NONDISPLACED O BLIQUE FRACTURES EXTENDING UP THE RIGHT ILIAC WING. COMMINUTION AND DISPLACEMENT OF THE LEFT PUBIC ANNA DY, VERTICAL FRACTURE OF THE POSTERIOR LEFT ILIAC BONE, AND DIASTASES OF THE LEFT SI JOINT. 3. THERE IS AN ACCESSORY BRANCH TO THE LOWER POLE OF THE LEFT KIDNEY FROM THE DISTAL ABDOMINAL AORTA. THE LOWER POLE IS NONENHANCING SUGGESTING SOME ARTERIAL INJURY TO THIS ACCESSORY BRANCH. THERE IS AL LD RETROPERITONEAL HEMORRHAGE TRACKING DOWN INTO THE PELVIS AND MILD EXTRAPERITONEAL HEMORRHAGE IN TH E PELVIS. NO ACTIVE ARTERIAL EXTRAVASATION IS CLEARLY IDENTIFIED. Critical findings called to Dr. Do in the ER at 6:29 PM.
== END 2024-04-07 18:20 | disposition other institution (70) ==
LOC: EC 17:06
DX: W19.XXXA Unspecified fall, initial encounter
CPT/HCPCS: 36415; 36430; 70450; 71045; 71275; 72125; 72128; 72131; 72170; 74174; 80053; 80306; 80320; 81001; 83605; 85025; 85610; 85730; 86850; 86900; 86901; 86920; 90471; 90715; 93005; 96361; 96365; 96368; 96375; 99291

== ENCOUNTER → 2024-09-17 | Outpatient (CLI) | payer BC ==
[2024-09-17 14:43] VITALS: BP 136/79; PULSE 69; RESP 16; TEMP 97.5
--- NOTE | 2024-09-17 15:53 | P.PAINPG ---
Objective - Vital Signs Vital signs: Intake & Output 09/16/24 09/17/24 09/17/24 18:59 06:59 18:59 Weight 102.058 kg PQRS Measure Charge Sheet Comment: HISTORY OF PRESENT ILLNESS: A 59 yr old male w at side as a referral from Dr Gonzalez presents today w severe and chronic LBP since Mar 2024 secondary to tree stump injury, radiculopathy, spondylosis and facet arthropathy without myelopathy for evaluation. Pt states pain level is provoked at 7 /10 in intensity, constant, localized in the lumbar spine, predominantly axial, dull in character w occasional shooting pain towards the LLE. Pain is provoked by sitting, PT x 6 wks which ended in Jul 2024. Pain is alleviated by physician guided home stretches daily since Jul 2024, heat, ice, medications, using walker for ambulatory assistance, repositioning and rest . Oswestry axial pain score at 33. PMH: OA PSH: Pelvis/ LLE Thuan/ L Knee Fixation (Mar 2024), Sleeve Gastrectomy (2019), Cholecystectomy (2020), Hernia Repair, R Knee Replacement (2019), R Shoulder Surgery, BL Eye Surgery SH: Negative x3 FH: Fa- CA. Mo- CA. Sis- CA. All: See list Meds: See list incl Oxycodone IR 10mg, Robaxin #90, CBD Oil REVIEW OF ORGAN SYSTEMS: CONSTITUTIONAL: No fevers or chills. No recent weight loss. NEUROLOGICAL: + numbness and tingling along the distal extremities. No seizure disorders or headaches. MUSCULOSKELETAL: + pain PSYCHIATRIC: Denies current depression or suicidal thoughts. Physical Examinations : Constitutional : Cooperative , not in acute distress . Neurologic : Cranial nerve II to XII intact. No focal neurological deficits. Psychiatric : alert & oriented x 3. Matching mood & appropriate affect. Judgment & insight intact. Musculoskeletal : Cervical Spine Motor strength in the deltoid and biceps: Normal right side. Normal Left side Motor strength biceps and the wrist extensors: Normal right side . Normal left side Motor strength in the triceps muscle: Normal right side. Normal left side Deep tendon reflexes: Normal at the biceps. Normal at Brachioradialis. Normal at triceps Vertebral body tenderness to deep palpation over Cervical facet loading test: positive bilaterally Spurling test: positive bilaterally Neck distraction test: positive bilaterally Rick sign: positive bilaterally Lumbar spine +Incisional scars intact Motor strength lower extremities ,thigh and legs 5/5 Right side , 5/5 Left side Deep tendon reflexes : Normal Knee Jerk. Normal Ankle Jerk Vertebral body tenderness over L5 Meyer Test positive L L4-L5/ L5-S1 Lumbar facet Loading Test: positive Right / positive Left Range of motion of the lumbar spine Flexion 30 degrees, extension 10 degrees Straight Leg Raise test: Left/ Right positive at degrees Jacoby test: positive right / positive left. Severe tenderness over the Sacroiliac joint on the Right / Left sides Gaenslen test: positive bilaterally Seated flexion test: positive bilaterally. Sacral spine : Severe tenderness over the Sacroiliac joint: right side / left side Range of motion: Flexion of the lumbar spine <60 degrees Range of motion: Extension of the lumbar spine <20 degrees Gaenslen's Test positive Jacoby test: positive right side / left side Thigh Thrust Test Sacral Thrust Test Imaging: CT non contrast ABD/ Pelvis from 04/07/[address] non contrast Brain/ Cervical spine from 04/07/24 reviewed Assessment/ Plan : L1-L3 Transverse Process Fractures, L3-L4 Herniation, L2-L5 Spinous Process Fractures, C5-C6 spinal stenosis Recommendation of L TFESI L4-L5/ L5-S1 #1. Risks, benefits of procedure discussed and patient verbalized understanding. Admits to anti- coagulant use or medical history of diabetes. Protocol for discontinuation/ continuation of medications ramiro procedure discussed. Opiate/ narcotic agreement signed 09/17/24. Oxycodone IR 10mg #90 w 1 RF. Use, side effects, adverse reactions, safe storage discussed. All questions answered. I have spent greater than 30 minutes on patient care today. Dr Aguilar was available by phone for the evaluation of this patient. The time was used to review the medical records including relevant urine studies and Prescription history (MAPs), review of the available imaging, evaluation and examination of the patient, coordination of care with the medical staff and if applicable referring physicians, as well as creation of the medical record - Pain Location Lower Back Non-Pharmacological Interventions: Position/Reposition, Standing Pharmacological Interventions: Discuss Pain Med Options PQRS Narrative: Smoking Status Never smoker Home Medications: Ambulatory Orders EPINEPHrine (Auto Inject) [Epipen] 0.3 mg IM ONCE PRN 11/30/17 Anastrozole 1 mg PO DIRECTED 09/17/24 Ibuprofen 1 tab PO Q8H PRN 09/17/24 Losartan/Hydrochlorothiazide [Losartan-Hctz 100-25 mg Tab] 1 tab PO DAILY 09/17/24 Omeprazole 40 mg PO DAILY 09/17/24 Testosterone Enanthate [Xyosted] 100 mg SQ WEEKLY 09/17/24 amLODIPine [Norvasc] 2.5 mg PO DAILY 09/17/24 methocarbamoL [Robaxin] 1 tab PO DAILY PRN 09/17/24 oxyCODONE HCL [oxyCODONE HCL (IR)] 1 tab PO Q8H PRN 30 Days #90 tab 09/17/24 oxyCODONE HCL [oxyCODONE HCL (IR)] 10 mg PO TID PRN 30 Days #90 tab 09/17/24 Controlled Substance Measures - Controlled Substance Measures Is patient prescribed a controlled substance at discharge?: Yes When asked, does pt state using other controlled substances?: Yes If prescribed controlled substance>3 days was MAPS reviewed?: Yes If Rx opioid, was Start Talking consent form obtained?: Yes Was information provided regarding opioid addiction?: Yes
== END ==
LOC: PNWHC3 13:28
PROVIDERS: ATTEND Pain Medicine Interventional Pain Medicine
DX: S32.058A Other fracture of fifth lumbar vertebra, initial encounter for closed fracture (principal); S32.028A Other fracture of second lumbar vertebra, initial encounter for closed fracture; M48.02 Spinal stenosis, cervical region; Z91.030 Bee allergy status
CPT/HCPCS: 99211

== ENCOUNTER → 2024-11-11 | Outpatient (CLI) | payer BC ==
[2024-11-11 14:19] VITALS: BP 164/108; PULSE 73; RESP 16; TEMP 97.7
--- NOTE | 2024-11-11 15:25 | P.PAINPG ---
PQRS Measure Charge Sheet Comment: HISTORY OF PRESENT ILLNESS: A 59 yr old male w sister at side presents today w severe and chronic LBP since Mar 2024 secondary to tree stump injury, radiculopathy, spondylosis and facet arthropathy without myelopathy for evaluation s/p L TFESI L4-L5/ L5-S1 #1. Pt states he experienced 80 % pain relief x 6 wks s/p procedure. Pt states pain level is provoked at 7 /10 in intensity, constant, localized in the lumbar spine, predominantly axial, dull in character w occasional shooting pain towards the LLE. Pain is provoked by sitting, PT x 6 wks which ended in Jul 2024. Pain is alleviated by physician guided home stretches daily since Jul 2024, heat, ice, medications, repositioning and rest. Pt no longer using a cane for ambulation. Interventional procedures include L TFESI L4-L5/ L5-S1 x1 (10/08) Medications incude Oxycodone IR 10mg, Robaxin #90, CBD Oil REVIEW OF ORGAN SYSTEMS: CONSTITUTIONAL: No fevers or chills. No recent weight loss. NEUROLOGICAL: + numbness and tingling along the distal extremities. No seizure disorders or headaches. MUSCULOSKELETAL: + pain PSYCHIATRIC: Denies current depression or suicidal thoughts. Physical Examinations : Constitutional : Cooperative , not in acute distress . Neurologic : Cranial nerve II to XII intact. No focal neurological deficits. Psychiatric : alert & oriented x 3. Matching mood & appropriate affect. Judgment & insight intact. Musculoskeletal : Cervical Spine Motor strength in the deltoid and biceps: Normal right side. Normal Left side Motor strength biceps and the wrist extensors: Normal right side . Normal left side Motor strength in the triceps muscle: Normal right side. Normal left side Deep tendon reflexes: Normal at the biceps. Normal at Brachioradialis. Normal at triceps Vertebral body tenderness to deep palpation over Cervical facet loading test: positive bilaterally Spurling test: positive bilaterally Neck distraction test: positive bilaterally Rick sign: positive bilaterally Lumbar spine +Incisional scars intact Motor strength lower extremities ,thigh and legs 5/5 Right side , 5/5 Left side Deep tendon reflexes : Normal Knee Jerk. Normal Ankle Jerk Vertebral body tenderness over L5 Meyer Test positive BL L4-L5 Lumbar facet Loading Test: positive Right / positive Left Range of motion of the lumbar spine Flexion 30 degrees, extension 10 degrees Straight Leg Raise test: Left/ Right positive at degrees Jacoby test: positive right / positive left. Severe tenderness over the Sacroiliac joint on the Right / Left sides Gaenslen test: positive bilaterally Seated flexion test: positive bilaterally. Sacral spine : Severe tenderness over the Sacroiliac joint: right side / left side Range of motion: Flexion of the lumbar spine <60 degrees Range of motion: Extension of the lumbar spine <20 degrees Gaenslen's Test positive Jacoyb test: positive right side / left side Thigh Thrust Test Sacral Thrust Test Imaging: CT non contrast ABD/ Pelvis from 04/07/[address] non contrast Brain/ Cervical spine from 04/07/24 reviewed Assessment/ Plan : L1-L3 Transverse Process Fractures, L3-L4 Herniation, L2-L5 Spinous Process Fractures, C5-C6 spinal stenosis Recommendation of CHE L4-L5 #2 and medication management. Risks, benefits of procedure discussed and pt verbalized understanding. Protocol for discontinuation/ continuation of medications ramiro procedure discussed. Discontinue Ibu, substitute w Naproxen 500mg #60, Robaxin 1,000 #90 w 1 RF. UDS collected 11/11/24. Opiate/ narcotic agreement signed 09/17/24. Oxycodone IR 10mg #90 w 1 RF. Use, side effects, adverse reactions, safe storage discussed. All questions answered. I have spent greater than 30 minutes on patient care today. Dr Aguilar was available by phone for the evaluation of this patient. The time was used to review the medical records including relevant urine studies and Prescription history (MAPs), review of the available imaging, evaluation and examination of the patient, coordination of care with the medical staff and if applicable referring physicians, as well as creation of the medical record PQRS Narrative: Smoking Status Never smoker Hx Alcohol Use (MH) No Home Medications: Ambulatory Orders EPINEPHrine (Auto Inject) [Epipen] 0.3 mg IM ONCE PRN 11/30/17 Anastrozole 1 mg PO DIRECTED 09/17/24 Ibuprofen 1 tab PO Q8H PRN 09/17/24 Losartan/Hydrochlorothiazide [Losartan-Hctz 100-25 mg Tab] 1 tab PO DAILY 09/17/24 Omeprazole 40 mg PO DAILY 09/17/24 Testosterone Enanthate [Xyosted] 100 mg SQ WEEKLY 09/17/24 amLODIPine [Norvasc] 2.5 mg PO DAILY 09/17/24 diazePAM [Valium] 5 mg PO DAILY 1 Days #2 tab 09/17/24 oxyCODONE HCL [oxyCODONE HCL (IR)] 1 tab PO Q8H PRN 30 Days #90 tab 11/11/24 oxyCODONE HCL [oxyCODONE HCL (IR)] 10 mg PO TID PRN 30 Days #90 tab 11/11/24 Controlled Substance Measures - Controlled Substance Measures Is patient prescribed a controlled substance at discharge?: Yes When asked, does pt state using other controlled substances?: Yes If prescribed controlled substance>3 days was MAPS reviewed?: Yes
== END ==
LOC: PNWHC3 13:05
PROVIDERS: ATTEND Specialist
DX: S32.019A Unspecified fracture of first lumbar vertebra, initial encounter for closed fracture (principal); S32.039A Unspecified fracture of third lumbar vertebra, initial encounter for closed fracture; M48.02 Spinal stenosis, cervical region; M51.16 Intervertebral disc disorders with radiculopathy, lumbar region; M47.26 Other spondylosis with radiculopathy, lumbar region; Z91.030 Bee allergy status
CPT/HCPCS: 80307; 99211

== ENCOUNTER → 2024-12-30 | Outpatient (CLI) | payer BC ==
[2024-12-30 09:36] VITALS: BP 151/94; PULSE 69; RESP 17
--- NOTE | 2025-01-01 10:51 | P.PAINPG ---
Objective - Vital Signs Vital signs: Vital Signs Temp Pulse 69 12/30/24 09:27 Resp 17 12/30/24 09:27 BP 151/94 12/30/24 09:27 Pulse Ox 96 12/30/24 09:27 FiO2 Intake & Output 12/29/24 12/30/24 12/30/24 18:59 06:59 18:59 Weight 99.79 kg PQRS Measure Charge Sheet Mode of Arrival: Ambulatory Comment: HISTORY OF PRESENT ILLNESS: A 59 yr old male w sister at side presents today w severe and chronic LBP since Mar 2024 secondary to tree stump injury, radiculopathy, spondylosis and facet arthropathy without myelopathy for evaluation s/p L TFESI L4-L5/ L5-S1 #1. Pt states he experienced 80 % pain relief x 6 wks s/p procedure. Pt states pain level is provoked at 7 /10 in intensity, constant, localized in the lumbar spine, predominantly axial, dull in character w occasional shooting pain towards the LLE. Pain is provoked by sitting, PT x 6 wks which ended in Jul 2024. Pain is alleviated by physician guided home stretches daily since Jul 2024, heat, ice, medications, repositioning and rest. UDS 11/11/24 +Oxycodone, +THC. Will repeat UDS. Interventional procedures include L TFESI L4-L5/ L5-S1 x1 (10/08) Medications include Oxycodone IR 10mg, Robaxin #90, CBD Oil REVIEW OF ORGAN SYSTEMS: CONSTITUTIONAL: No fevers or chills. No recent weight loss. NEUROLOGICAL: + numbness and tingling along the distal extremities. No seizure disorders or headaches. MUSCULOSKELETAL: + pain PSYCHIATRIC: Denies current depression or suicidal thoughts. Physical Examinations : Constitutional : Cooperative , not in acute distress . Neurologic : Cranial nerve II to XII intact. No focal neurological deficits. Psychiatric : alert & oriented x 3. Matching mood & appropriate affect. Judgment & insight intact. Musculoskeletal : Cervical Spine Motor strength in the deltoid and biceps: Normal right side. Normal Left side Motor strength biceps and the wrist extensors: Normal right side . Normal left side Motor strength in the triceps muscle: Normal right side. Normal left side Deep tendon reflexes: Normal at the biceps. Normal at Brachioradialis. Normal at triceps Vertebral body tenderness to deep palpation over Cervical facet loading test: positive bilaterally Spurling test: positive bilaterally Neck distraction test: positive bilaterally Rick sign: positive bilaterally Lumbar spine +Incisional scars intact Motor strength lower extremities ,thigh and legs 5/5 Right side , 5/5 Left side Deep tendon reflexes : Normal Knee Jerk. Normal Ankle Jerk Vertebral body tenderness over L5 Meyer Test positive BL L4-L5 Lumbar facet Loading Test: positive Right / positive Left Range of motion of the lumbar spine Flexion 30 degrees, extension 10 degrees Straight Leg Raise test: Left/ Right positive at degrees Jacoby test: positive right / positive left. Severe tenderness over the Sacroiliac joint on the Right / Left sides Gaenslen test: positive bilaterally Seated flexion test: positive bi laterally. Sacral spine : Severe tenderness over the Sacroiliac joint: right side / left side Range of motion: Flexion of the lumbar spine <60 degrees Range of motion: Extension of the lumbar spine <20 degrees Gaenslen's Test positive Jacoby test: positive right side / left side Thigh Thrust Test Sacral Thrust Test Imaging: CT non contrast ABD/ Pelvis from 04/07/[address] non contrast Brain/ Cervical spine from 04/07/24 reviewed Assessment/ Plan : L1-L3 Transverse Process Fractures, L3-L4 Herniation, L2-L5 Spinous Process Fractures, C5-C6 spinal stenosis Recommendation of medication management. Risks, benefits of procedure discussed and pt verbalized understanding. Protocol for discontinuation/ continuation of medications ramiro procedure discussed. Naproxen 500mg #60, Robaxin 1,000 #90 w 1 RF. UDS 11/11/24 +Oxycodone +THC so will repeat UDS 12/30/24. Opiate/ narcotic agreement signed 09/17/24. Oxycodone IR 10mg #90 w 1 RF. Use, side effects, adverse reactions, safe storage discussed. All questions answered. I have spent greater than 30 minutes on patient care today. Dr Aguilar was available by phone for the evaluation of this patient. The time was used to review the medical records including relevant urine studies and Prescription history (MAPs), review of the available imaging, evaluation and examination of the patient, coordination of care with the medical staff and if applicable referring physicians, as well as creation of the medical record - Pain Location Lower Back Non-Pharmacological Interventions: Ice, Stretching Pharmacological Interventions: Medication PQRS Narrative: Smoking Status Never smoker Blood Pressure 151/94 Pain Intensity [Lower Back] 4 Scale Used Numeric (1 - 10) Hx Alcohol Use (MH) No Home Medications: Ambulatory Orders EPINEPHrine (Auto Inject) [Epipen] 0.3 mg IM ONCE PRN 11/30/17 Anastrozole 1 mg PO DIRECTED 09/17/24 Losartan/Hydrochlorothiazide [Losartan-Hctz 100-25 mg Tab] 1 tab PO DAILY 09/17/24 Omeprazole 40 mg PO DAILY 09/17/24 Testosterone Enanthate [Xyosted] 100 mg SQ WEEKLY 09/17/24 amLODIPine [Norvasc] 2.5 mg PO DAILY 09/17/24 Naproxen [Naprosyn] 500 mg PO BID 30 Days #60 tablet 11/11/24 diazePAM [Valium] 5 mg PO DAILY 1 Days #2 tab 12/30/24 methocarbamoL [Robaxin] 1,000 mg PO TID PRN 30 Days #90 tab 12/30/24 oxyCODONE HCL [oxyCODONE HCL (IR)] 1 tab PO Q8H PRN 30 Days #90 tab 12/30/24 oxyCODONE HCL [oxyCODONE HCL (IR)] 10 mg PO TID PRN 30 Days #90 tab 12/30/24 Controlled Substance Measures - Controlled Substance Measures Is patient prescribed a controlled substance at discharge?: Yes When asked, does pt state using other controlled substances?: Yes If prescribed controlled substance>3 days was MAPS reviewed?: Yes
== END ==
LOC: PNWHC3 08:54
PROVIDERS: ATTEND Specialist
DX: S32.009A Unspecified fracture of unspecified lumbar vertebra, initial encounter for closed fracture (principal); M51.26 Other intervertebral disc displacement, lumbar region; M48.02 Spinal stenosis, cervical region; Z91.030 Bee allergy status; X58.XXXA Exposure to other specified factors, initial encounter
CPT/HCPCS: 80307; 99212

== ENCOUNTER 2025-01-17 11:31 | Day surgery (SDC) | payer BC ==
[2025-01-16 11:40] VITALS: BMI 33.4
[2025-01-17 12:45] VITALS: RESP 16; TEMP 97.8
[2025-01-17] MEDS ORDERED: LACTATED RINGERS 1,000 ML IV SCH (13:15)
[2025-01-17] MEDS ORDERED: DEXAMETHASONE SOD PHOSPHATE 10 MG/ML 1 ML VIAL ONE (13:24)
[2025-01-17] MEDS ORDERED: IOPAMIDOL M200 10 ML VIAL ONE (13:24)
--- NOTE | 2025-01-17 13:51 | P.PCN ---
Date of Procedure: 01/17/25 Description of Procedure: PREOPERATIVE DIAGNOSIS: 1-Lumbar radiculopathy . 2-lumbar degenerative disc disease. 3-lumbar spondylosis with lumbar facet arthropathy without myelopathy POSTOPERATIVE DIAGNOSIS: 1-lumbar radiculopathy. 2-lumbar degenerative disc disease. 3-lumbar spondylosis with facet arthropathy without myelopathy PROCEDURE 1. Transforaminal epidural steroid injection under fluoroscopic guidance at LEFT L4-5, L5-S1 level. (Fluoroscopy images stored on file in the radiology Department ) 2. Lumbar epidurogram . ANESTHESIA: Local with 1% lidocaine 5 ml. subcutaneously. Continuous pulse ox, EKG, blood pressure and verbal communication was maintained with the patient. EBL: Minimal PROCEDURE INDICATION: The patient with low back pain and radiculopathy symptoms unresponsive to conservative treatment. The patient was seen and identified in the preoperative area. Risks, benefits, complications, and alternatives were discussed with the patient. The patient agreed to proceed with the procedure and signed the consent. IV was started, and vital signs were stable. PROCEDURE DESCRIPTION / TECHNIQUE: After getting consent, patient was taken to the OR and time out was completed. The patient was placed in the prone position on procedure table and a pillow was placed under the abdomen to reduce lumbar lordosis. The lumbosacral area was prepped and draped in the usual sterile fashion. 5 mL of plain 1% lidocaine subcutaneously at the identified L4 and L5 pedicles. Oblique fl ourooscopy to identify the chin of the "jamie dog" of both L4 and L5. [place] advanced in tunneled view. Then AP imaging confirmed position in the superior portion of the neuroforamen of each level. a 22-gauge spinal needle was was seen at the 8' oclock position of the pedicle. 3 mL of Isovue-M 200 contrast was injected under continuous fluoroscope. No contrast was noted in the intrathecal or intravascular space. The epidurogram was noted. Total solution was 8ml consisting of 1ml/10mg of dexamethasone and 7ml of sterile saline. 4ml was injected at each level. Needle was removed. At the end of the procedure, skin was cleansed, and bandages were applied. DISPOSITION / PLANS: No complication. The patient tolerated the procedure well. The patient was placed in a supine position and transferred to the recovery area in a stable condition for observation. There was no evidence of lower extremity motor or sensory deficit after the procedure. Patient was discharged from the recovery room after meeting discharge criteria. Home discharge instructions were given to the patient by the staff. The patient was reexamined prior to discharge.
[2025-01-17 14:04] VITALS: BP 136/79; PULSE 77
--- NOTE | 2025-01-17 20:49 | FL ---
Fluoroscopy INDICATION: Pain FINDINGS: Fluoroscopy time: 60 seconds. Total dose area product (DAP) in uGy*m?, mGy*cm? (or similar): 0.427-0 Images obtained: 2. Images document [place] directed towards the lumbar spine IMPRESSION: 1. Documentation of fluoroscopy. [facility], , 01/17/2025 8:47 PM
== END 2025-01-17 14:19 | disposition home or self-care (01) ==
LOC: ORPAIN 11:31
PROVIDERS: ATTEND Anesthesiology
DX: M47.26 Other spondylosis with radiculopathy, lumbar region (principal); M51.16 Intervertebral disc disorders with radiculopathy, lumbar region; Z91.030 Bee allergy status
CPT/HCPCS: 64484; 64483; J1100; Q9966